=== PATIENT | female | born 1940 | race Caucasian/White ===

== ENCOUNTER 2016-08-25 17:01 | Inpatient (IN) ==
[2016-08-25] MEDS ORDERED: Ipratropium/Albuterol Neb 3 ML IH ONE (17:20)
[2016-08-25 17:46] LABS: Basophils # 0.1 K/mcL (0.0-0.2); Basophils % 0.4 %; Eosinophils # 0.2 K/mcL (0.0-0.6); Hematocrit 39.8 % (35.3-44.9); Hemoglobin 12.8 g/dL (11.5-15.4); Immature Granulocytes % 0.5 % (0-4); Lymphocytes # 1.3 K/mcL (0.6-4.6); Lymphocytes % 10.5 %; Mean Corpuscular HGB Conc 32.2 g/dL (31.6-35.5); Mean Corpuscular Hemoglobin 30.4 pg (28.0-33.3); Mean Corpuscular Volume 94.5 fL (83.0-100.0); Mean Platelet Volume 10.5 fL (9.4-12.4); Monocytes # 0.9 K/mcL (0.0-1.3); Monocytes % 7.1 %; Neutrophils # 9.6 K/mcL (1.6-8.9); Platelet Count 188 K/mcL (140-400); Red Blood Count 4.21 M/mcL (3.82-4.97); Red Cell Distribution Width 14.5 % (11.5-14.5); Segmented Neutrophils % 79.5 %
[2016-08-25 17:58] LABS: Albumin 3.7 g/dL (3.5-5.0); Albumin/Globulin Ratio 1.3 (1.1-2.2); Bilirubin,Total 0.7 mg/dL (0.2-1.2); Calcium 9.3 mg/dL (8.6-10.8); Globulin 2.9 g/dL (2.4-3.5); INR 1.1; Potassium 4.9 mEq/L (3.5-4.5); Prothrombin Time 11.9 Seconds (9.4-12.1); Total Protein 6.6 g/dL (6.0-8.3)
[2016-08-25 18:01] LABS: Activated Partial Thrombo Time 27.5 Seconds (26.0-36.0)
[2016-08-25] MEDS ORDERED: Furosemide 40 MG/4 ML VIAL IVP ONE (18:16)
--- NOTE | 2016-08-25 18:45 | Emergency Department Note ---
Disposition Clinical Impression: Congestive heart failure Qualifiers: Congestive heart failure chronicity: acute on chronic Disposition: Admitted As Inpatient Referrals: Wilmar Newman MD [Primary Care Provider] - Forms: ED Satisfaction Letter SOB HPI - General Chief Complaint: ED Shortness of Breath/Dyspnea Stated Complaint: LAVINIA Time Seen by Provider: 08/25/16 17:09 Source: patient, EMS Limitations: no limitations Nursing Notes Reviewed: Yes Vital Signs Reviewed: Yes - History of Present Illness She presents with complaint of shortness of breath started a couple days progressively getting worse. EMS was dispatched and patient was found to be having oxygen sat in the 70%. Patient denies chest pain denies fevers or chills. Patient has had similar episode when her congestive heart failure has been active. Patient denies any increased swelling of her abdomen or her lower extremities. Patient denies leg or knee pain. - Related Data Home Medications Medication Instructions Recorded Confirmed Aspirin Enteric Coated [Aspirin EC] 81 mg PO QPM #0 03/25/15 02/19/16 Carvedilol 12.5 mg PO BID #0 03/25/15 02/19/16 Furosemide [Lasix] 60 mg PO DAILY #0 03/25/15 02/19/16 Glimepiride [Amaryl] 2 mg PO BID #0 03/25/15 02/19/16 Magnesium Gluconate [Magonate] 500 mg PO QPM #0 03/25/15 02/19/16 Nitroglycerin [Nitrostat] 0.4 mg SL AD PRN #0 03/25/15 02/19/16 Omeprazole [PriLOSEC] 20 mg PO QAM #0 03/25/15 02/19/16 Sennosides [Senna] 17.2 mg PO BID #0 03/25/15 02/19/16 Atorvastatin [Lipitor] 40 mg PO HS 02/19/16 02/19/16 Mirtazapine 30 mg PO HS 02/19/16 02/19/16 Oxygen 2.5 - 3 l NS AD 02/19/16 02/19/16 Potassium Chloride [Klor-Con 10 meq PO DAILY 02/19/16 02/19/16 Sprinkle] Previous Rx's Medication Instructions Recorded Budesonide/Formoterol 80/4.5 1 puff IH BIDR inhaler 02/22/16 [Symbicort 80/4.5] ClonazePAM [Klonopin] 0.5 mg PO BID #20 tablet 02/22/16 Cyclobenzaprine [Flexeril] 5 mg PO HS #20 tablet 02/22/16 Docusate [Colace] 100 mg PO BID capsule 02/22/16 Escitalopram [Lexapro] 10 mg PO QAM tablet 02/22/16 Folic Acid 1 mg PO QAM tablet 02/22/16 Ipratropium/Albuterol Neb [Duoneb] 3 ml IH Q4HR inhsol 02/22/16 Ipratropium/Albuterol Neb [Duoneb] 3 ml IH QIDR PRN #0 inhsol 02/22/16 MOM Conc [MILK OF MAGNESIA conc] 10 ml PO DAILY PRN #0 ud.liq 02/22/16 Polyethylene Glycol 3350 [MiraLAX] 17 gm PO DAILY powd.pack 02/22/16 TraMADol [Ultram] 50 mg PO Q8HR PRN #15 tablet 02/22/16 Tramadol HCl [Ultram] 50 mg PO DAILY PRN #3 tab 08/05/16 Allergies Allergy/AdvReac Type Severity Reaction Status Date / Time acetaminophen [From Percocet] Allergy Nausea Verified 05/29/15 17:04 codeine Allergy See Verified 05/29/15 17:04 [From Tylenol-Codeine] Comments Oxycodone [From Percocet] Allergy Nausea Verified 05/29/15 17:04 Amoxicillin AdvReac Anaphylaxis Verified 05/29/15 17:04 citalopram [From Celexa] AdvReac Dizziness Verified 05/29/15 17:04 epinephrine AdvReac Headache Verified 05/29/15 17:04 furosemide [From Lasix] AdvReac Fatigued Verified 05/29/15 17:04 Penicillins [PCN] AdvReac Itching Verified 05/29/15 17:04 Sulfa (Sulfonamide AdvReac Anaphylaxis Verified 05/29/15 17:04 Antibiotics) All systems ED: reviewed and negative except as stated. 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 - Social History Smoking Status: Former smoker Smokeless Tobacco Status: No Alcohol use: Reports: none Drug use: Reports: none Physical Exam - General Limitations: no limitations General appearance: alert, in distress - Head Head exam: atraumatic, normocephalic, normal inspection - Eye Eye exam: Present: normal appearance, PERRL, EOMI - ENT ENT exam: normal exam, normal oropharynx, mucous membranes moist - Neck Neck exam: Present: normal inspection, full ROM, trachea midline - Chest Chest inspection: Present: normal inspection, symmetric chest wall rise - Respiratory Respiratory exam: Present: respiratory distress - Cardiovascular Cardiovascular exam: Present: regular rate, normal rhythm, normal heart sounds - Abdominal Exam Abdominal exam: Present: soft, Non-Tender. Absent: tenderness, distention, guarding, rebound, rigidity - Extremities Exam Extremities exam: Present: pedal edema - Back Exam Back exam: Present: normal inspection, full ROM. Absent: tenderness - Neurological Exam Neurological exam: Present: alert, oriented X3 - Psychiatric Psychiatric exam: Present: normal affect, normal mood - Skin Skin exam: Present: warm, dry, intact, normal color Course Vital Signs Temperature 97.8 F 08/25/16 17:03 Pulse Rate 95 08/25/16 17:03 Respiratory Rate 32 08/25/16 17:03 Blood Pressure 149/90 08/25/16 17:03 O2 Sat by Pulse Oximetry 90 L 08/25/16 17:03 Temperature 97.8 F 08/25/16 17:03 Pulse Rate 89 08/25/16 17:49 Respiratory Rate 22 08/25/16 17:49 Blood Pressure 154/93 08/25/16 17:49 O2 Sat by Pulse Oximetry 93 L 08/25/16 17:49 Oxygen Delivery Oxygen Delivery Nasal Cannula Shortness of Breath/Dyspnea - Differential Diagnosis Likely: acute exacerbation of chronic obstructive airways disease, congestive heart failure, pneumonia, pulmonary embolism - Lab Data Result diagrams: 08/25/16 17:35 08/25/16 17:35 Lab Results 08/25/16 08/25/16 08/25/16 Range/Units 17:35 17:35 17:35 WBC 12.0 H (4.3-11.1) K/mcL RBC 4.21 (3.82-4.97) M/mcL Hgb 12.8 (11.5-15.4) g/dL Hct 39.8 (35.3-44.9) % MCV 94.5 (83.0-100.0) fL MCH 30.4 (28.0-33.3) pg MCHC 32.2 (31.6-35.5) g/dL RDW 14.5 (11.5-14.5) % Plt Count 188 (140-400) K/mcL MPV 10.5 (9.4-12.4) fL Immature Gran % 0.5 (0-4) % Seg Neutrophils % 79.5 % Lymphocytes % 10.5 % Monocytes % 7.1 % Eosinophils % 2.0 % Basophils % 0.4 % Neutrophils # 9.6 H (1.6-8.9) K/mcL Lymphocytes # 1.3 (0.6-4.6) K/mcL Monocytes # 0.9 (0.0-1.3) K/mcL Eosinophils # 0.2 (0.0-0.6) K/mcL Basophils # 0.1 (0.0-0.2) K/mcL PT 11.9 (9.4-12.1) Seconds INR 1.1 APTT 27.5 (26.0-36.0) Seconds Sodium 136 (136-145) mEq/L Potassium 4.9 H (3.5-4.5) mEq/L Chloride 103 (98-109) mEq/L Carbon Dioxide 26 (19-29) mEq/L BUN 26 H (7-20) mg/dL Creatinine 1.26 H (0.57-1.11) mg/dL Est GFR ( Amer) 50 L (> 60) Est GFR (Non-Af Amer) 41 L (> 60) BUN/Creatinine Ratio 21 (6-26) Glucose 186 H (70-99) mg/dL Calculated Osmolality 292 (280-300) Lactic Acid (0.5-2.2) mmol/L Calcium 9.3 (8.6-10.8) mg/dL Total Bilirubin 0.7 (0.2-1.2) mg/dL AST 37 H (5-34) Units/L ALT 27 (0-55) Units/L Alkaline Phosphatase 77 (38-126) Units/L Troponin I (0-0.03) ng/mL B-Natriuretic Peptide (0-100) pg/mL Serum Total Protein 6.6 (6.0-8.3) g/dL Albumin 3.7 (3.5-5.0) g/dL Globulin 2.9 (2.4-3.5) g/dL Albumin/Globulin Ratio 1.3 (1.1-2.2) 08/25/16 08/25/16 08/25/16 Range/Units 17:35 17:35 17:35 WBC (4.3-11.1) K/mcL RBC (3.82-4.97) M/mcL Hgb (11.5-15.4) g/dL Hct (35.3-44.9) % MCV (83.0-100.0) fL MCH (28.0-33.3) pg MCHC (31.6-35.5) g/dL RDW (11.5-14.5) % Plt Count (140-400) K/mcL MPV (9.4-12.4) fL Immature Gran % (0-4) % Seg Neutrophils % % Lymphocytes % % Monocytes % % Eosinophils % % Basophils % % Neutrophils # (1.6-8.9) K/mcL Lymphocytes # (0.6-4.6) K/mcL Monocytes # (0.0-1.3) K/mcL Eosinophils # (0.0-0.6) K/mcL Basophils # (0.0-0.2) K/mcL PT (9.4-12.1) Seconds INR APTT (26.0-36.0) Seconds Sodium (136-145) mEq/L Potassium (3.5-4.5) mEq/L Chloride (98-109) mEq/L Carbon Dioxide (19-29) mEq/L BUN (7-20) mg/dL Creatinine (0.57-1.11) mg/dL Est GFR ( Amer) (> 60) Est GFR (Non-Af Amer) (> 60) BUN/Creatinine Ratio (6-26) Glucose (70-99) mg/dL Calculated Osmolality (280-300) Lactic Acid 1.2 (0.5-2.2) mmol/L Calcium (8.6-10.8) mg/dL Total Bilirubin (0.2-1.2) mg/dL AST (5-34) Units/L ALT (0-55) Units/L Alkaline Phosphatase (38-126) Units/L Troponin I 0.02 (0-0.03) ng/mL B-Natriuretic Peptide 1188 H (0-100) pg/mL Serum Total Protein (6.0-8.3) g/dL Albumin (3.5-5.0) g/dL Globulin (2.4-3.5) g/dL Albumin/Globulin Ratio (1.1-2.2) - Radiology Data Radiology results reviewed: Yes I reviewed the patient's radiology results. Chest X-Ray 08/25/16 17:18 IMPRESSION: 1. Interstitial pulmonary edema (and possibly perihilar alveolar edema), bilateral pleural effusions (larger on the left), and mild cardiomegaly, suggesting congestive heart failure. 2. Bibasilar atelectasis, worse on the left. D/ / Prateek Harvey MD / Prateek Harvey MD Interpreting Provider: Prateek Harvey MD - EKG Data EKG attestation: Yes I reviewed and interpreted this EKG. EKG results narrative: Electrical pacemaker.
[2016-08-25] MEDS ORDERED: Naloxone 0.4 MG/ML INJ IVP PRN (21:26)
[2016-08-25] MEDS ORDERED: Acetaminophen 325 MG TABLET PO PRN (21:26)
--- NOTE | 2016-08-25 21:50 | Internal Med History&Physical ---
<Radha Black - Last Filed: 08/26/16 01:05> Date of Encounter: 08/26/16 Time of Encounter: 20:00 Assessment and Plan (1) Acute CHF Current visit: Yes Status: Acute Patient came in with SOB that started two days ago. last echo from 05/30/15 showed LVEF 30%, severely dilated LV, mild diastollic dysfunction of LV, severely enlarged atria Etiology possibly from not taking lasix at home as prescribed-she states she is on 50mg lasix daily and has not taken it in 3 days due to urinary incontinence. CXR reviewed- shows pulmonary edema with bilateral pleural effusions more prominent on left than right, Hold Beta abdirashid 40mg IV lasix BID Strict I/O with 1.5L fluid restriction daily repeat echo pending. Qualifiers: Congestive heart failure type: combined Qualified Code(s): I50.41 - Acute combined systolic (congestive) and diastolic (congestive) heart failure (2) Elevated d-dimer Current visit: Yes Status: Acute Patient's D-Dimer was elevated at 2112, and patient came in with SOB. Must rule out PE Patient placed on heparin drip pending V/Q scan in am. (3) Urinary incontinence Current visit: Yes Status: Acute Patient reports history of what appears to be overflow incontinence. She has had this chronically for a long time ever since she started her lasix. Urinalysis to check for UTI Consider outpatient follow up with urology. Qualifiers: Urinary Incontinence type: unspecified incontinence Qualified Code(s): R32 - Unspecified urinary incontinence (4) CKD (chronic kidney disease) stage 3, GFR 30-59 ml/min Current visit: No Status: Acute Cr measured at 1.26, which about is about baseline for her. Continue to monitor kidney function. (5) H/O cardiomyopathy Current visit: No Status: Acute repeat echo pending. (6) Herniated intervertebral disc of lumbar spine Current visit: No Status: Acute continue home pain med and muscle relaxor once home med list verified. (7) Diabetes mellitus type 2 in obese Current visit: No Status: Chronic low dose sliding scale insulin with ACHS accuchecks. ADA diet. (8) Dyslipidemia Current visit: No Status: Chronic continue ASA continue statin once home med list verified. (9) GERD (gastroesophageal reflux disease) Current visit: Yes Status: Acute continue prilosec once home med list verified. Qualifiers: Esophagitis presence: esophagitis presence not specified Qualified Code(s) : K21.9 - Gastro-esophageal reflux disease without esophagitis (10) Interstitial lung disease Current visit: Yes Status: Acute history of interstitial lung disease. Patient on 2L home oxygen at baseline DuoNebs Q6HR PRN (11) DVT prophylaxis Current visit: No Status: Acute patient is now on heparin drip. Internal Medicine - H&P: HPI Chief complaint: shortness of breath Admitted From: Emergency Dept Plans for Post Hospital Care: Home History of present illness: PCP: Dr. Newman Ms. Griffin is a 76 year old female 76 year old female with PMHx of CHF (last echo 05/30/15 showed LVEF 30%), DM, HTN, HLD, interstitial lung disease (on 2L home oxygen), CKD3, ALLYSON. Patient came to ED with CC of SOB that started two days ago and progressively got worse. Patient states that she takes 60mg lasix at home daily for her CHF. However, she has not taken it in the last 3 days because it was making her use the bathroom very frequently and she has been having urinary incontinence due to not being able to make it to the bathroom in time. She states she has had occasional incontinence since she began taking lasix in 1996. The patient was very upset about this. She denies chest pain. She reports occasional numbness and tingling in her fingers and her left foot. She has occasional nausea without vomiting, no diarrhea, no fever or chills. She has occasional dizziness and has multiple history of falls. She denies hematuria or blood in her stools. SHe has had two episodes of hemoptysis a few days ago with bright red blood. Social Hx: lives at home with her , smoked for 30 years <1PPD, quit in 1996. Occasionally drinks, denies illicit drug use. Family Hx: mother at 66 from possible [place], dad at 76 from lymphoma. One child at age 4 from leukemia. Surgical Hx: right lumpectomy, right hip replacement, right thoracic surgery, Past Med Surg Social Fam HX - Past Medical History Medical history: arthritis, cancer, cardiomyopathy, CHF, COPD, coronary artery disease, diabetes, GERD, hyperlipidemia, hypertension, malignancy, osteoporosis , renal disease, other Psychiatric history: anxiety, depression - Past Surgical History Surgical History: cancer surgery (Left breast lumpectomy), cataract (Bilateral cataract surgery with lens implants), hip replacement (Right hip replacement), orthopedic, other, pacemaker/AICD, other - Social History Smoking Status: Former smoker Smokeless Tobacco Status: No Alcohol use: none Drug use: none - Family History Mother Adopted: No Living Status: Hx Family Cardiac Disorders: Yes Hx Family Respiratory Disorders: No Hx Family Cancer: No Hx Family Endocrine Disorder: No Internal Medicine - H&P: Meds Aspirin Enteric Coated [Aspirin EC] 81 mg PO QPM #0 03/25/15 [History] Carvedilol 12.5 mg PO BID #0 03/25/15 [History] Furosemide [Lasix] 60 mg PO DAILY #0 03/25/15 [History] Glimepiride [Amaryl] 2 mg PO BID #0 03/25/15 [History] Magnesium Gluconate [Magonate] 500 mg PO QPM #0 03/25/15 [History] Nitroglycerin [Nitrostat] 0.4 mg SL AD PRN #0 03/25/15 [History] Omeprazole [PriLOSEC] 20 mg PO QAM #0 03/25/15 [History] Sennosides [Senna] 17.2 mg PO BID #0 03/25/15 [History] Atorvastatin [Lipitor] 40 mg PO HS 02/19/16 [History] Mirtazapine 30 mg PO HS 02/19/16 [History] Oxygen 2.5 - 3 l NS AD 02/19/16 [History] Potassium Chloride [Klor-Con Sprinkle] 10 meq PO DAILY 02/19/16 [History] Budesonide/Formoterol 80/4.5 [Symbicort 80/4.5] 1 puff IH BIDR inhaler [Rx] ClonazePAM [Klonopin] 0.5 mg PO BID #20 tablet 02/22/16 [Rx] Cyclobenzaprine [Flexeril] 5 mg PO HS #20 tablet 02/22/16 [Rx] Docusate [Colace] 100 mg PO BID capsule 02/22/16 [Rx] Escitalopram [Lexapro] 10 mg PO QAM tablet 02/22/16 [Rx] Folic Acid 1 mg PO QAM tablet 02/22/16 [Rx] Ipratropium/Albuterol Neb [Duoneb] 3 ml IH Q4HR inhsol 02/22/16 [Rx] Ipratropium/Albuterol Neb [Duoneb] 3 ml IH QIDR PRN #0 inhsol 02/22/16 [Rx] MOM Conc [MILK OF MAGNESIA conc] 10 ml PO DAILY PRN #0 ud.liq 02/22/16 [Rx] Polyethylene Glycol 3350 [MiraLAX] 17 gm PO DAILY powd.pack 02/22/16 [Rx] TraMADol [Ultram] 50 mg PO Q8HR PRN #15 tablet 02/22/16 [Rx] Tramadol HCl [Ultram] 50 mg PO DAILY PRN #3 tab 08/05/16 [Rx] Allergies acetaminophen [From Percocet] Allergy (Verified 05/29/15 17:04) Nausea codeine [From Tylenol-Codeine] Allergy (Verified 05/29/15 17:04) See Comments Oxycodone [From Percocet] Allergy (Verified 05/29/15 17:04) Nausea Amoxicillin Adverse Reaction (Verified 05/29/15 17:04) Anaphylaxis citalopram [From Celexa] Adverse Reaction (Verified 05/29/15 17:04) Dizziness epinephrine Adverse Reaction (Verified 05/29/15 17:04) Headache Penicillins [PCN] Adverse Reaction (Verified 05/29/15 17:04) Itching Sulfa (Sulfonamide Antibiotics) Adverse Reaction (Verified 05/29/15 17:04) Anaphylaxis All Systems PM: A 10-system review of systems was performed and is negative for pertinent findings except as documented above in the HPI. - Constitutional Vitals: Temp Pulse Resp BP Pulse Ox 98.1 F 84 17 140/77 94 L 08/25/16 20:04 08/25/16 20:04 08/25/16 20:04 08/25/16 20:04 08/25/16 20:04 General appearance: Present: mild distress, A&O X 3, answers questions appropriately - Head Head exam: Present: atraumatic, normocephalic - Eye Eye exam: Present: PERRL, sclera anicteric Pupils: Present: PERRL - Neck Neck exam general surgery: Present: supple, trachea midline - Respiratory Respiratory exam: Present: rales (lower lobe crackles more prominent on right than left. ), rhonchi, wheezes - Cardiovascular Cardiovascular exam: Present: +S1, +S2. Absent: JVD - GI/Abdominal GI/Abdominal exam: Present: distended, normal bowel sounds, soft, tenderness - Extremities Exam Extremities exam: Present: calf tenderness (on left. ), pedal edema (+1 pedal edema bilaterally. pedal pulses palpable bilaterally. ), radial pulses palpable and symetrical Additional comments: numbness and tingling on the left lower extremity. - Back Exam Additional comments: scars present in mid and lower back from previous surgeries. - Neurological Exam Neurological exam: Present: alert, CN II-XII intact, oriented X3. Absent: facial droop, speech deficit Additional comments: patient reports mildly decreased sensation on left lower extremity compared to right. - Psychiatric Psychiatric exam: Present: anxious, depressed (patient was very upset and crying during exam) - Skin Skin exam: Absent: cyanosis, diaphoretic Internal Med - H&P Results - Labs CBC & Chem 7: 08/26/16 00:41 08/25/16 17:35 <Viktor Baker - Last Filed: 08/26/16 01:55> Date of Encounter: 08/25/16 Internal Medicine - H&P: HPI History of present illness: Ms. Griffin is a 76 year old female All Systems PM: A 10-system review of systems was performed and is negative for pertinent findings except as documented above in the HPI. - Constitutional Vitals: Temp Pulse Resp BP Pulse Ox 98.1 F 85 17 139/76 87 L 08/26/16 00:34 08/26/16 00:34 08/26/16 00:34 08/26/16 00:34 08/26/16 00:34 Internal Med - H&P Results - Labs CBC & Chem 7: 08/26/16 00:41 08/26/16 00:41 Labs: Short CBC 08/26/16 Range/Units 00:41 WBC 13.6 H (4.3-11.1) K/mcL Hgb 12.5 (11.5-15.4) g/dL Hct 38.6 (35.3-44.9) % Plt Count 176 (140-400) K/mcL Neutrophils # 9.5 H (1.6-8.9) K/mcL BMP 08/26/16 00:41 Sodium 137 Potassium 4.0 Chloride 103 Carbon Dioxide 26 BUN 22 H Creatinine 1.23 H Glucose 139 H Calcium 9.6 Urine 08/25/16 Range/Units 18:51 Urine Color Yellow (Yellow) Urine Clarity Clear (Clear) Urine pH 5.5 (5.0-8.0) pH Units Ur Specific [place] 1.010 (1.010-1.025) Urine Protein Negative (Neg-Trace) mg/dL Urine Glucose (UA) Normal (Normal) mg/dL - Attending Attestation I examined this patient and my medical decision-making was reviewed with the NURSING TECHN/PA/Advanced Practice Nurse/Resident Physician. I agree with the documented findings, disposition and treatment plan as described except to the extent set forth below. 76 Y/F with h/o CKD stage 3, Non ischemic cardiomyopathy, chronic respiratory failure on home oxygen, ALLYSON - noncompliant with CPAP. Presents with Progressively worsening SOB for 2 days. Cough with whitish expectoration. O2 sats of about 70% at presentation. O/E: Bilateral basal crackles R > L. Mild leg edema. BNP: 1188. CXR reports , interstitial pulmonary edema, bilateral pleural effusions greater on the left and mild cardiomegaly, suggesting congestive heart failure. EKG shows paced rhythm. A/P: CHF Exacerbation: IV Lasix, daily weights, strict I/O; low sodium diet and fluid restriction. Acute on chronic resp failure: possibly due to CHF exacerbation treat with Lasix. Will check D-dimers.
[2016-08-25] MEDS ORDERED: D5% in Water 1,000 ML IV PRN (23:00)
[2016-08-25] MEDS ORDERED: Dextrose Gel 15 GM PO PRN ×2 (23:00)
[2016-08-25] MEDS ORDERED: *HR* Dextrose 50 % in Water (Syg) 50 ML SYRINGE IVP PRN (23:00)
[2016-08-25] MEDS ORDERED: *HR* Heparin 5,000 UNIT/ML VIAL SQ SCH (23:15)
[2016-08-25] MEDS ORDERED: *HR* LORazepam 0.5 MG TABLET PO ONE (23:37)
[2016-08-26] MEDS ORDERED: *HR* Heparin 5,000 UNIT/ML VIAL IVP PRN ×2 (00:06)
[2016-08-26] MEDS ORDERED: Ipratropium/Albuterol Neb 3 ML IH PRN (00:18)
[2016-08-26 00:51] LABS: Basophils % 0.3 %; Eosinophils # 0.3 K/mcL (0.0-0.6); Eosinophils % 2.4 %; Hematocrit 38.6 % (35.3-44.9); Hemoglobin 12.5 g/dL (11.5-15.4); Immature Granulocytes % 0.4 % (0-4); Lymphocytes # 2.4 K/mcL (0.6-4.6); Lymphocytes % 17.5 %; Mean Corpuscular HGB Conc 32.4 g/dL (31.6-35.5); Mean Corpuscular Hemoglobin 30.4 pg (28.0-33.3); Mean Corpuscular Volume 93.9 fL (83.0-100.0); Mean Platelet Volume 10.6 fL (9.4-12.4); Monocytes # 1.2 K/mcL (0.0-1.3); Monocytes % 9.1 %; Neutrophils # 9.5 K/mcL (1.6-8.9); Platelet Count 176 K/mcL (140-400); Red Blood Count 4.11 M/mcL (3.82-4.97); Red Cell Distribution Width 14.6 % (11.5-14.5); Segmented Neutrophils % 70.3 %
[2016-08-26 00:56] LABS: INR 1.1; Prothrombin Time 12.2 Seconds (9.4-12.1)
[2016-08-26 00:58] LABS: Activated Partial Thrombo Time 27.5 Seconds (26.0-36.0)
[2016-08-26 01:02] LABS: Calcium 9.6 mg/dL (8.6-10.8); Phosphorous 3.2 mg/dL (2.3-4.7)
[2016-08-26 01:14] LABS: Bilirubin,Urine Negative (Negative); Blood,Urine Negative (Negative); Clarity,Urine Clear (Clear); Color,Urine Yellow (Yellow); Glucose,Urine (UA) Normal (Normal); Ketones,Urine Negative (Negative); Leukocyte Esterase,Urine Negative (Negative); Nitrite,Urine Negative (Negative); PH,Urine 5.5 pH Units (5.0-8.0); Protein,Urine Negative (Neg-Trace); Urobilinogen,Urine Normal (Normal)
[2016-08-26] MEDS: Heparin 25,000 UNIT/500 ML D5W 25,000 UNIT/500 ML MLS IVC SCH (01:33)
[2016-08-26] MEDS ORDERED: traMADol 50 MG TABLET PO ONE (03:49)
[2016-08-26] MEDS: Ondansetron 4 MG/2 ML VIAL IVP PRN ×2 (05:49→17:09)
[2016-08-26] MEDS ORDERED: Perflutren Lipid Microsphere 1.3 ML in 0.9 % Sodium Chloride 8.7 ML IVP ONE (08:41)
[2016-08-26] MEDS: Furosemide 40 MG/4 ML VIAL IVP SCH ×2 (09:11→17:09)
[2016-08-26] MEDS: Insulin LISPRO 300 UNITS/3 ML VIAL SQ SCH ×4 (09:12→21:36)
[2016-08-26 09:58] LABS: Basophils # 0.1 K/mcL (0.0-0.2); Basophils % 0.4 %; Eosinophils # 0.5 K/mcL (0.0-0.6); Eosinophils % 3.8 %; Hematocrit 40.9 % (35.3-44.9); Immature Granulocytes % 0.5 % (0-4); Lymphocytes # 2.3 K/mcL (0.6-4.6); Lymphocytes % 18.2 %; Mean Corpuscular HGB Conc 31.8 g/dL (31.6-35.5); Mean Corpuscular Volume 94.5 fL (83.0-100.0); Mean Platelet Volume 10.7 fL (9.4-12.4); Monocytes # 1.2 K/mcL (0.0-1.3); Monocytes % 9.2 %; Neutrophils # 8.7 K/mcL (1.6-8.9); Platelet Count 185 K/mcL (140-400); Red Blood Count 4.33 M/mcL (3.82-4.97); Red Cell Distribution Width 14.5 % (11.5-14.5); Segmented Neutrophils % 67.9 %
--- NOTE | 2016-08-26 12:38 | ECHO - Doppler Report ---
Echo with Imaging Enhancement Agent Name: Natacha Griffin Date of Study: 08/26/2016 Date: 1940 Ht: 62.0 in Medical Record#: [id number] Age: 76 Wt: 200.0 lb Gender: Female BSA: 1.91 Order #: [id number] Location: [facility] Room #: 2A43 Reading Physician: Shashi Amor DO, FACC, YADIRA KIRK Hand Packer/Packager: Elle Gustafson, RVT, RDCS Ordering Physician: Brooke Baker MD Primary Physician: Wilmar Newman MD Indications: Congestive heart failure Impressions: Technically sub-optimal due to poor echocardiographic windows. LVEF 30%. Moderately dilated left ventricle. Not all segments well visualized, but LV appeared to demonstrate severe global systolic dysfunction. Atypical septal motion consistent with paced rhythm. Grossly, mildly dilated right ventricle with normal appearing function. Indeterminate diastolic function. No evidence of pulmonary hypertension identified. A device lead was visualized in the right atrium and right ventricle. No significant valvular dysfunction. Left Ventricular Wall Motion: Rest Echo Findings The apex, apical inferior, mid inferior, basal inferior, apical anterior, mid anterior, basal anterior, apical septal, mid inferior septal, basal inferior septal, apical lateral, mid anterior lateral, basal anterior lateral, mid anterior septal, mid inferior lateral, basal anterior septal and basal inferior lateral loera were hypokinetic. Findings: Study Quality * Technically sub-optimal due to poor echocardiographic windows. ECG Findings * Paced rhythm. Left Ventricle * LVEF 30%. * Moderately dilated left ventricle. * Not all segments well visualized, but LV appeared to demonstrate severe global systolic dysfunction. * Atypical septal motion consistent with paced rhythm. * Indeterminate diastolic function. Right Ventricle * Grossly, mildly dilated right ventricle with normal appearing function. Left Atrium * Moderately dilated left atrium. Right Atrium * Mildly dilated right atrium. Interatrial Septum * Interatrial septum not well evaluated. Aortic Valve * Aortic valve not well visualized. * No aortic regurgitation. * No aortic stenosis. Mitral Valve * Mild mitral annular calcification * Mildly thickened mitral valve leaflets. * Trace mitral regurgitation. * No mitral stenosis. Tricuspid Valve * Normal tricuspid valve structure and function. * Trace tricuspid regurgitation. * No evidence of pulmonary hypertension identified. Pulmonic Valve * Pulmonic valve not well visualized. * Trace pulmonic regurgitation. Aorta * Normally sized aortic root. Pericardium * The pericardium appears normal. IVC * Normal IVC dimensions and inspiratory collapse. Device lead * A device lead was visualized in the right atrium and right ventricle. Pulmonary Artery * Normal visualized portions of the main pulmonary artery. History Hypertension Diabetes Hypercholesteremia Family History of CAD Pacer/ICD Implant 2015 a Previous Echo was performed. Contrast: Definity 1.3 ml in 8.7 ml of saline 3 ml. Measurements: BP: 117/ 72 2D Normal Values RVIDd: 2.80 cm <2.7 cm IVSd: 1.20 cm 0.6 - 1.0 cm LVIDd: 6.50 cm 3.7 - 5.6 cm LVPWd: 1.00 cm 0.6 - 1.1 cm LVIDs: 4.10 cm 1.5 - 3.6 cm AO: 3.30 cm < 4.0 cm LA: 3.40 cm 2.0 - 4.0cm %FS: 36.90 cm >25 % LA volume: 60 Mitral Valve Peak E:.81 m/sec Peak A:.64 m/sec E/A Ratio:1.3 Tricuspid Valve TV Regurg Peak Grad: 28.00mmHg TV Regurg Peak Dony: 2.64m/sec Updated by Shashi Amor DO, FACMarium, YADIRA KIRK on 08/26/2016 12:32:27 PM electronically signed on 08/26/2016 12:34:13 PM with status of Final Wall Motion Simmons: 1=Normal, 2=Hypokinesis, 3=Akinesis, 4=Dyskinesis, 5=Aneurysmal, 6=Hyperkinetic, X=Not Visualized (Blank)=Missing
--- NOTE | 2016-08-26 16:36 | Internal Med Progress Note ---
Date of Encounter: 08/26/16 Time of Encounter: 16:29 - Assessment and plan (1) Acute CHF Current Visit: Yes Status: Acute Assessment and plan: Worsening shortness of breath for the last week ever since she stopped the Lasix. She says her left leg was too numb and tingling and she had to drag her left leg to walk to the bathroom so she had to stop the Lasix. CXR shows pulmonary edema with bilateral pleural effusions more prominent on left than right, She has been restarted back on IV Lasix 40 twice a day. Strict I/O with 1.5 L fluid restriction daily. Repeat echo shows baseline EF of 30%. She denies any chest pain, shortness of breath has improved. We will continue aspirin and beta blockers and statins. Qualifiers: Congestive heart failure type: combined Qualified Code(s): I50.41 - Acute combined systolic (congestive) and diastolic (congestive) heart failure (2) Elevated d-dimer Current Visit: Yes Status: Acute Assessment and plan: Patient's D-Dimer was elevated at 2112, and patient came in with SOB. Patient placed on heparin drip empirically until PE is ruled out. CTA was not done because of CKD. VQ scan with intermediate probability. Patient has improved clinically, does not have pulmonary hypertension on the echo, we will order bilateral venous Doppler of lower legs, if negative for clots, we will stop the heparin drip. (3) CKD (chronic kidney disease) stage 3, GFR 30-59 ml/min Current Visit: No Status: Acute Assessment and plan: at baseline, continue to monitor. (4) Peripheral neuropathy Current Visit: Yes Status: Acute Assessment and plan: she reports burning numbness and tingling of her left feet, she does not have much symptoms on her right leg. She also complains of mild burning and tingling on both of her upper extremities however it is not as bad. This seems more like diabetic neuropathy , will add gabapentin renal dose. will also add Pt/OT, will monitor and wait for PT/OT recommendations but do not think its CVA as the power is like 3-4. Qualifiers: Peripheral neuropathy type: polyneuropathy, unspecified Qualified Code(s): G62.9 - Polyneuropathy, unspecified - Time Spent With Patient 25 - 35 minutes - Subjective Interval history: Patient seen at the bedside today, first encounter with the patient. Reports numbness of the left leg and weakness, she says she has been dragging her left leg along and has not been able to walk. For the same reason she stopped her Lasix by herself at home which might have exacerbated her CHF. She says she went to her PCP and he had ordered a CAT scan of the head to rule out stroke which she has not been able to get it so far. - Constitutional Vitals: Temp Pulse Resp BP Pulse Ox 98.5 F 87 18 131/80 93 L 08/26/16 15:37 08/26/16 15:37 08/26/16 15:37 08/26/16 15:37 08/26/16 15:37 General appearance: Present: A&O X 3, no acute distress, answers questions appropriately Exam: Head Head exam: Present: atraumatic, normocephalic - Eye Eye exam: Present: PERRL, sclera anicteric Pupils: Present: PERRL - Neck Neck exam general surgery: Present: supple, trachea midline - Respiratory Respiratory exam: Present: b/l clear, no wheezing. - Cardiovascular Cardiovascular exam: Present: +S1, +S2. Absent: JVD - GI/Abdominal GI/Abdominal exam: Present: distended, normal bowel sounds, soft, no tenderness - Extremities Exam Extremities exam: Present: no edema at present, radial pulses palpable and symetrical Additional comments: numbness and tingling on the left lower extremity. - Back Exam Additional comments: scars present in mid and lower back from previous surgeries. - Neurological Exam Neurological exam: Present: alert, CN II-XII intact, oriented X3. Absent: facial droop, speech deficit Additional comments: patient reports mildly decreased sensation on left lower extremity compared to right. - Psychiatric Psychiatric exam: Present: anxious, depressed (patient was very upset and crying during exam) - Skin Skin exam: Absent: cyanosis, diaphoretic Internal Medicine: Result - Labs CBC & Chem 7: 08/26/16 09:25 08/26/16 00:41 Labs: Short CBC 08/26/16 08/26/16 Range/Units 00:41 09:25 WBC 13.6 H 12.8 H (4.3-11.1) K/mcL Hgb 12.5 13.0 (11.5-15.4) g/dL Hct 38.6 40.9 (35.3-44.9) % Plt Count 176 185 (140-400) K/mcL Neutrophils # 9.5 H 8.7 (1.6-8.9) K/mcL BMP 08/26/16 00:41 Sodium 137 Potassium 4.0 Chloride 103 Carbon Dioxide 26 BUN 22 H Creatinine 1.23 H Glucose 139 H Calcium 9.6 - ABG Interpretation ABG results: PT/INR, D-dimer PT 12.2 Seconds (9.4-12.1) H 08/26/16 00:41 D-Dimer 2112 ng/mLFEU (0-500) H 08/25/16 23:19 - Impressions Impressions Pulmonary Perfusion Imaging 08/26/16 00:10 IMPRESSION: Limited exam secondary to clumping of an a on ventilatory images. There is a triple matched defect in the left lung base, compatible with at least indeterminate or intermediate probability study D/ / Rick Burroughs MD / Rick Burroughs MD Interpreting Provider: Rick Burroughs MD Consult Discharge Plan - Plan Referrals: [facility] – [place],Wilmar Choudhury MD [Primary Care Provider] - 09/03/16 9:00 am (Please follow up as schedule!!!)
[2016-08-26] MEDS: clonazePAM 0.5 MG TABLET PO PRN ×2 (17:09→21:34)
[2016-08-26] MEDS: Aspirin Enteric Coated 81 MG Tablet PO SCH (17:09)
--- NOTE | 2016-08-26 19:41 | Electrocardiograph Report ---
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
[2016-08-26] MEDS: Mirtazapine 15 MG TABLET PO SCH (21:34)
[2016-08-26] MEDS: Gabapentin 100 MG CAPSULE PO SCH (21:34)
[2016-08-26 23:07] LABS: Activated Partial Thrombo Time > 360.0 Seconds (26.0-36.0)
[2016-08-27 01:12] LABS: Heparin anti-factor XA UFH > 2.00 IU/mL (0.30-0.70)
[2016-08-27] MEDS: Heparin 25,000 UNIT/500 ML D5W 25,000 UNIT/500 ML MLS IVC SCH (02:14)
[2016-08-27] MEDS: Insulin LISPRO 300 UNITS/3 ML VIAL SQ SCH ×4 (08:50→22:10)
[2016-08-27] MEDS: Gabapentin 100 MG CAPSULE PO SCH ×3 (08:51→20:05)
[2016-08-27] MEDS: Folic Acid 1 MG TABLET PO SCH (08:52)
[2016-08-27] MEDS: Lisinopril 20 MG TABLET PO SCH (08:52)
[2016-08-27] MEDS: Furosemide 40 MG/4 ML VIAL IVP SCH ×2 (08:52→17:11)
--- NOTE | 2016-08-27 14:45 | Internal Med Progress Note ---
Date of Encounter: 08/27/16 Time of Encounter: 11:45 - Assessment and plan (1) Acute CHF Current Visit: Yes Status: Acute Assessment and plan: Continue IV Lasix. Patient having good urine output. Almost 5 L negative fluid balance. We will start oral potassium supplements. Continue aspirin and statin and lisinopril. Qualifiers: Congestive heart failure type: combined Qualified Code(s): I50.41 - Acute combined systolic (congestive) and diastolic (congestive) heart failure (2) Elevated d-dimer Current Visit: Yes Status: Acute Assessment and plan: Venous Doppler of both lower extremities was negative for any deep vein thrombosis. As such. IV heparin. Start subcutaneous heparin for DVT prophylaxis. (3) Peripheral neuropathy Current Visit: Yes Status: Acute Assessment and plan: Likely from diabetic neuropathy. On gabapentin. Qualifiers: Peripheral neuropathy type: polyneuropathy associated with underlying disease Qualified Code(s): G63 - Polyneuropathy in diseases classified elsewhere (4) CKD (chronic kidney disease) stage 3, GFR 30-59 ml/min Current Visit: No Status: Chronic Assessment and plan: Stable renal function. (5) Diabetes mellitus type 2 in obese Current Visit: Yes Status: Chronic Assessment and plan: Well controlled blood sugars. On sliding scale insulin. - Subjective Interval history: Patient is feeling better today. Shortness of breath is improving. No chest pain. No nausea or vomiting. - Constitutional Vitals: Temp Pulse Resp BP Pulse Ox 98.4 F 86 19 136/84 96 08/27/16 12:07 08/27/16 12:07 08/27/16 12:07 08/27/16 12:07 08/27/16 12:07 General appearance: Present: A&O X 3, no acute distress, answers questions appropriately - Respiratory Respiratory exam: Present: CTAB. Absent: accessory muscle use, rales, rhonchi, wheezes - Cardiovascular Cardiovascular exam: Present: RRR, +S1, +S2. Absent: diastolic murmur, gallop, rubs, systolic murmur - GI/Abdominal GI/Abdominal exam: Present: normal bowel sounds, soft, no peritoneal signs. Absent: distended, tenderness - Extremities Exam Extremities exam: Present: warm, radial pulses palpable and symetrical. Absent : calf tenderness, cyanotic - Neurological Exam Neurological exam: Present: CN II-XII intact, oriented X3, no focal deficits. Absent: facial droop, speech deficit Additional comments: Numbness and tingling in left lower extremity - Skin Skin exam: Present: dry, intact Internal Medicine: Result - Labs CBC & Chem 7: 08/26/16 09:25 08/26/16 00:41 - ABG Interpretation ABG results: PT/INR, D-dimer PT 12.2 Seconds (9.4-12.1) H 08/26/16 00:41 D-Dimer 2112 ng/mLFEU (0-500) H 08/25/16 23:19 Consult Discharge Plan - Plan [place] [facility] [place]oudh[place] [Primary Care Provider] - 09/03/16 9:00 am (Please follow up as scheduled. Needs home health set up.) - Attending Attestation This document has been at least partially created by [employer] recognition technology by Dr. Reed. Errors in grammar, wording or other phrases may exist. If errors are found after the documentation is signed, they will be addressed individually in the addendum section of this document when appropriate.
[2016-08-27] MEDS: Aspirin Enteric Coated 81 MG Tablet PO SCH (17:10)
--- NOTE | 2016-08-27 17:53 | Venous Imaging Report ---
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 Findings Venous Duplex Results: Right: Venous imaging of the lower extremity reveals full patency and normal vessel compressibility of the right distal iliac, right common femoral, right superficial femoral, right popliteal, right posterior tibial, right peroneal, right great saphenous and right lesser saphenous. Doppler signals in the evaluated veins were normal. Left: Venous imaging of the lower extremity reveals full patency and normal vessel compressibility of the left distal iliac, left common femoral, left superficial femoral, left popliteal, left posterior tibial, left peroneal, left great saphenous and left lesser saphenous. Doppler signals in the evaluated veins were normal. Lower Extremity Venous Duplex Side Vein Compress Spontaneous Flow Augment Diameter (cm) Depth (cm) Right Distal Iliac Normal Yes Phasic Yes Right Common Femoral Normal Yes Phasic Yes Right Superficial Femoral Normal Yes Phasic Yes Right Popliteal Normal Yes Phasic Yes Right Posterior Tibial Normal Yes Phasic Yes Right Peroneal Normal Yes Phasic Yes Right Great Saphenous Normal Yes Phasic Yes Right Lesser Saphenous Normal Yes Phasic Yes Left Distal Iliac Normal Yes Phasic Yes Left Common Femoral Normal Yes Phasic Yes Left Superficial Femoral Normal Yes Phasic Yes Left Popliteal Normal Yes Phasic Yes Left Posterior Tibial Normal Yes Phasic Yes Left Peroneal Normal Yes Phasic Yes Left Great Saphenous Normal Yes Phasic Yes Left Lesser Saphenous Normal Yes Phasic Yes Updated by Nhan Larsen MD on 08/27/2016 5:44:53 PM electronically signed on 08/27/2016 5:47:05 PM with status of Final
[2016-08-27] MEDS: *HR* Heparin 5,000 UNIT/ML VIAL SQ SCH (20:03)
[2016-08-27] MEDS: Mirtazapine 15 MG TABLET PO SCH (20:05)
[2016-08-27] MEDS: clonazePAM 0.5 MG TABLET PO PRN (22:19)
[2016-08-28] MEDS: *HR* Heparin 5,000 UNIT/ML VIAL SQ SCH (06:08)
[2016-08-28 07:07] LABS: Basophils # 0.1 K/mcL (0.0-0.2); Basophils % 0.5 %; Eosinophils # 0.6 K/mcL (0.0-0.6); Eosinophils % 5.6 %; Hematocrit 38.8 % (35.3-44.9); Hemoglobin 12.7 g/dL (11.5-15.4); Immature Granulocytes % 0.6 % (0-4); Lymphocytes % 20.4 %; Mean Corpuscular HGB Conc 32.7 g/dL (31.6-35.5); Mean Corpuscular Hemoglobin 31.1 pg (28.0-33.3); Mean Corpuscular Volume 95.1 fL (83.0-100.0); Mean Platelet Volume 10.8 fL (9.4-12.4); Monocytes % 9.7 %; Neutrophils # 6.2 K/mcL (1.6-8.9); Platelet Count 173 K/mcL (140-400); Red Blood Count 4.08 M/mcL (3.82-4.97); Red Cell Distribution Width 14.5 % (11.5-14.5); Segmented Neutrophils % 63.2 %
[2016-08-28 07:15] LABS: Calcium 9.5 mg/dL (8.6-10.8); Potassium 4.4 mEq/L (3.5-4.5)
[2016-08-28 07:22] VITALS: BP 113/71
[2016-08-28] MEDS: Gabapentin 100 MG CAPSULE PO SCH (08:49)
[2016-08-28] MEDS: Folic Acid 1 MG TABLET PO SCH (08:49)
[2016-08-28] MEDS: Lisinopril 20 MG TABLET PO SCH (08:49)
--- NOTE | 2016-08-28 08:50 | Discharge Summary ---
Date of Encounter: 08/28/16 Time of Encounter: 08:48 - Discharge Diagnosis (1) Acute CHF Priority: Primary Status: Acute Qualifiers: Congestive heart failure type: combined Qualified Code(s): I50.41 - Acute combined systolic (congestive) and diastolic (congestive) heart failure (2) Elevated d-dimer Priority: Secondary Status: Acute (3) Peripheral neuropathy Priority: Secondary Status: Acute Qualifiers: Peripheral neuropathy type: polyneuropathy associated with underlying disease Qualified Code(s): G63 - Polyneuropathy in diseases classified elsewhere (4) CKD (chronic kidney disease) stage 3, GFR 30-59 ml/min Priority: Secondary Status: Chronic (5) Diabetes mellitus type 2 in obese Priority: Secondary Status: Chronic - Discharge Medications Prescriptions: Gabapentin [Neurontin] 100 mg PO TID #60 capsule Home Medications: Aspirin Enteric Coated [Aspirin EC] 81 mg PO QPM #0 03/25/15 [History] Carvedilol 12.5 mg PO BID #0 03/25/15 [History] Furosemide [Lasix] 60 mg PO DAILY #0 03/25/15 [History] Glimepiride [Amaryl] 2 mg PO BID #0 03/25/15 [History] Magnesium Gluconate [Magonate] 500 mg PO QPM #0 03/25/15 [History] Nitroglycerin [Nitrostat] 0.4 mg SL Q5M PRN #0 03/25/15 [History] Omeprazole [PriLOSEC] 20 mg PO QAM #0 03/25/15 [History] Sennosides [Senna] 8.6 mg PO DAILY PRN #0 03/25/15 [History] Atorvastatin [Lipitor] 40 mg PO HS 02/19/16 [History] Mirtazapine 30 mg PO HS 02/19/16 [History] Oxygen 2.5 - 3 l NS AD 02/19/16 [History] Potassium Chloride [Klor-Con Sprinkle] 10 meq PO HS 02/19/16 [History] Docusate [Colace] 100 mg PO BID capsule 02/22/16 [Rx] Polyethylene Glycol 3350 [MiraLAX] 17 gm PO DAILY powd.pack 02/22/16 [Rx] TraMADol [Ultram] 50 mg PO Q8HR PRN #15 tablet 08/11/16 [Rx] ClonazePAM [Klonopin] 0.5 mg PO TID PRN 08/26/16 [History] Cyclobenzaprine HCl 5 mg PO HS 08/26/16 [History] Escitalopram [Lexapro] 5 mg PO BID 08/26/16 [History] Folic Acid [FA-8] 0.8 mg PO DAILY 08/26/16 [History] Lactulose 20 gm PO HS 08/26/16 [History] Lisinopril [Zestril] 20 mg PO DAILY 08/26/16 [History] SitaGLIPtin [Januvia] 100 mg PO DAILY 08/26/16 [History] Gabapentin [Neurontin] 100 mg PO TID #60 capsule 08/28/16 [Rx] Allergies/Adverse Reactions: Allergies Amoxicillin Allergy (Verified 08/28/16 01:21) Swelling of Lip/Tongue/Throat Sulfa (Sulfonamide Antibiotics) Allergy (Verified 08/28/16 01:21) Swelling of Lip/Tongue/Throat acetaminophen [From Percocet] Adverse Reaction (Verified 08/28/16 01:21) Nausea citalopram [From Celexa] Adverse Reaction (Verified 08/28/16 01:21) Dizziness codeine [From Tylenol-Codeine] Adverse Reaction (Verified 08/28/16 01:21) Nausea epinephrine Adverse Reaction (Verified 08/28/16 01:21) Headache Oxycodone [From Percocet] Adverse Reaction (Verified 08/28/16 01:21) Nausea Penicillins [PCN] Adverse Reaction (Verified 08/28/16 01:21) Itching Procedures/tests Complete & Pending: Procedures Performed prior 72 hours Category Date Time Status VQ Scan [NM pul vent and perfuse] [NM] Routine Exams 08/26/16 00:10 Completed EV echocardiogram w enhance Routine Y 08/26/16 23:08 Completed EV venous imaging LE BI Routine Y 08/27/16 16:28 Completed Date of admission: 08/25/16 22:55 Primary care physician: Wilmar Newman MD Consults: 08/26/16 16:27 Consult to Occupational Therapy [CONS] Routine Comment: Evaluate, develop and implement POC Consult to Physical Therapy [CONS] Routine Comment: Evaluate, develop and implement POC Discharging clinician: Elgin Reed Anticipated date of discharge: 08/28/16 - Patient Status Disposition: Home, Self-Care Condition: Good Functional capacity at discharge: independent ambulation Overall status at discharge: patient is progressing back to baseline () - Discharge Instructions Instructions: Heart Failure (DC), Diabetes Mellitus Type 2 in Adults (DC) Follow Up With: Wilmar Newman MD [Primary Care Provider] - 09/03/16 9:00 am (Please follow up as scheduled. Needs home health set up.) Lula Poon DO [Partnered Physician] - (in 1-2 weeks) Forms: ED Satisfaction Letter - Diet and Activity Activity: increase activity as tolerated, wear oxygen at all times Diet: advance to your usual diet, diabetic diet, low fat, low cholesterol, low salt diet, other (fluid restriction at 2L/day) Hospital course: Ms. Griffin is a 76 year old female with history of combined congestive heart failure presented to the ER with complaints of shortness of breath which was progressively getting worse. Patient takes Lasix 60 mg daily at home. She does have chronic kidney disease stage III. She was treated with intravenous Lasix with improvement in her symptoms. On initial presentation, there is also concern for pulmonary embolism and patient underwent a VQ scan which showed intermediate or indeterminate probability for PE. She then underwent a venous Doppler of bilateral lower extremities which was negative for any thrombosis. As such her anticoagulation was stopped. She is breathing much better now and is back on her home oxygen at 2.5 L/m. She is clinically stable for discharge and will follow up with her primary care provider and barback for further management. Her renal function has been stable for the past 3 years. She will be discharged on 60 mg of Lasix daily as before. She was not compliant with her medication due to urinary frequency and urgency. She will be provided with a prescription for bedside commode so that she is not apprehensive about using Lasix. She also has chronic neuropathy involving her left lower extremity and has now been started on gabapentin for symptomatic treatment. This is likely due to diabetes mellitus. - Time Spent with Patient Total time spent providing and/or coordinating discharge services: Less than 30 minutes (25 min) - Constitutional Vitals: Temp Pulse Resp BP Pulse Ox 97.5 F L 75 17 113/71 100 08/28/16 07:19 08/28/16 07:19 08/28/16 07:19 08/28/16 07:19 08/28/16 07:19 General appearance: Present: A&O X 3, no acute distress, answers questions appropriately - Respiratory Respiratory exam: Present: CTAB. Absent: accessory muscle use, rales, rhonchi, wheezes - GI/Abdominal GI/Abdominal exam: Present: normal bowel sounds, soft, no peritoneal signs. Absent: distended, tenderness - Extremities Exam Extremities exam: Present: warm, radial pulses palpable and symetrical. Absent : calf tenderness, cyanotic, pedal edema - Neurological Exam Neurological exam: Present: alert, oriented X3, no focal deficits, strengths equal and symetr throughout. Absent: facial droop, speech deficit - Skin Skin exam: Present: dry, intact - Attending Attestation This document has been at least partially created by [employer] recognition technology by Dr. Reed. Errors in grammar, wording or other phrases may exist. If errors are found after the documentation is signed, they will be addressed individually in the addendum section of this document when appropriate.
[2016-08-28] MEDS: Insulin LISPRO 300 UNITS/3 ML VIAL SQ SCH (08:51)
== END 2016-08-28 11:08 | disposition home or self-care (01) | DRG 291 ==
LOC: 2ANU 17:01 → EMEROO 17:01 → 2ANU 19:22 → SUATTDRO 22:55
PROVIDERS: ADMIT Internal Medicine Endocrinology, Diabetes & Metabolism; ATTEND Internal Medicine

== ENCOUNTER 2017-01-17 17:18 | Observation (INO) ==
[2017-01-17 17:42] LABS: Basophils # 0.1 K/mcL (0.0-0.2); Basophils % 0.4 %; Eosinophils # 0.5 K/mcL (0.0-0.6); Hematocrit 40.5 % (35.3-44.9); Hemoglobin 12.7 g/dL (11.5-15.4); Immature Granulocytes % 1.1 % (0-4); Lymphocytes # 1.9 K/mcL (0.6-4.6); Lymphocytes % 12.4 %; Mean Corpuscular HGB Conc 31.4 g/dL (31.6-35.5); Mean Corpuscular Hemoglobin 31.1 pg (28.0-33.3); Mean Platelet Volume 10.9 fL (9.4-12.4); Monocytes # 1.2 K/mcL (0.0-1.3); Monocytes % 7.9 %; Neutrophils # 11.5 K/mcL (1.6-8.9); Platelet Count 190 K/mcL (140-400); Red Blood Count 4.09 M/mcL (3.82-4.97); Segmented Neutrophils % 75.2 %
[2017-01-17 17:49] LABS: INR 1.2; Prothrombin Time 12.6 Seconds (9.4-12.1)
[2017-01-17 17:54] LABS: Calcium 9.6 mg/dL (8.6-10.8); Potassium 4.3 mEq/L (3.5-4.5)
--- NOTE | 2017-01-17 18:24 | Emergency Department Note ---
Disposition Clinical Impression: ACS (acute coronary syndrome), Elevated troponin Disposition: Admitted As Inpatient Condition: Good Referrals: NO,PCP [Primary Care Provider] - Forms: ED Satisfaction Letter Time of Disposition: 18:27 General Adult HPI - General Chief complaint: ED Chest Pain Stated complaint: CP Time Seen by Provider: 01/17/17 17:23 Source: patient, family, EMS Limitations: no limitations Nursing Notes Reviewed: Yes Vital Signs Reviewed: Yes - History of Present Illness HPI Narrative: Pelvic: 76-year-old female with history of hypertension pulmonary fibrosis from cardiology presents to the emergency department with 2 days of intermittent chest pain woke up out of sleep. Stress test but none recently. Also complains of some mild thigh discomfort. Denies fevers chills medication changes until contacts exotic food or recent travel. Patient was brought in by EMS. Was given a breathing treatment and felt a little bit better. Otherwise no history of COPD or asthma. Has never smoked. No occupational exposure. Patient resting in bed comfortably at this time. Pain Scale: 5 - Related Data Home Medications Medication Instructions Recorded Confirmed Aspirin Enteric Coated [Aspirin EC] 81 mg PO QPM #0 03/25/15 01/17/17 Carvedilol 12.5 mg PO BID #0 03/25/15 01/17/17 Furosemide [Lasix] 60 mg PO DAILY #0 03/25/15 01/17/17 Glimepiride [Amaryl] 2 mg PO QAM #0 03/25/15 01/17/17 Nitroglycerin [Nitrostat] 0.4 mg SL Q5M PRN #0 03/25/15 01/17/17 Omeprazole [PriLOSEC] 20 mg PO QAM #0 03/25/15 01/17/17 Sennosides [Senna] 8.6 mg PO DAILY PRN #0 03/25/15 01/17/17 Mirtazapine 30 mg PO HS 02/19/16 01/17/17 Oxygen 4 l NS AD 02/19/16 01/17/17 Potassium Chloride [Klor-Con 10 meq PO HS 02/19/16 01/17/17 Sprinkle] Cyclobenzaprine HCl 5 mg PO HS 08/26/16 01/17/17 Escitalopram [Lexapro] 10 mg PO QAM 08/26/16 01/17/17 Folic Acid [FA-8] 0.8 mg PO DAILY 08/26/16 01/17/17 Lisinopril [Zestril] 20 mg PO DAILY 08/26/16 01/17/17 SitaGLIPtin [Januvia] 100 mg PO DAILY 08/26/16 01/17/17 clonazePAM [Klonopin] 0.5 mg PO TID PRN 08/26/16 01/17/17 Escitalopram Oxalate 5 mg PO QPM 01/17/17 01/17/17 Magnesium Citrate [Citroma] 296 ml PO DAILY PRN 01/17/17 01/17/17 Magnesium Oxide [Magnesium] 500 mg PO DAILY 01/17/17 01/17/17 Previous Rx's Medication Instructions Recorded Docusate [Colace] 100 mg PO BID capsule 02/22/16 traMADol [Ultram] 50 mg PO Q8HR PRN #15 tablet 02/22/16 Gabapentin [Neurontin] 100 mg PO TID #60 capsule 08/28/16 Allergies Allergy/AdvReac Type Severity Reaction Status Date / Time Amoxicillin Allergy Swelling Verified 01/17/17 17:21 of Lip/Tongue/Throat Sulfa (Sulfonamide Allergy Swelling Verified 01/17/17 17:21 Antibiotics) of Lip/Tongue/Throat acetaminophen [From Percocet] AdvReac Nausea Verified 01/17/17 17:21 citalopram [From Celexa] AdvReac Dizziness Verified 01/17/17 17:21 codeine AdvReac Nausea Verified 01/17/17 17:21 [From Tylenol-Codeine] epinephrine AdvReac Headache Verified 01/17/17 17:21 Oxycodone [From Percocet] AdvReac Nausea Verified 01/17/17 17:21 Penicillins [PCN] AdvReac Itching Verified 01/17/17 17:21 Cardiovascular: Reports: chest pain, dyspnea on exertion Respiratory: Reports: dyspnea Gastrointestinal: Reports: nausea. Denies: vomiting Past Medical History - Past Medical History Attestation: Yes The following information was validated with the patient. Source: patient, old records reviewed, obtained from family Medical history: Reports: arthritis, cancer, cardiomyopathy, CHF, COPD, coronary artery disease, diabetes, GERD, hyperlipidemia, hypertension, malignancy, osteoporosis, renal disease, other Surgical history: Reports: cancer surgery (Left breast lumpectomy), cataract ( Bilateral cataract surgery with lens implants), hip replacement (Right hip replacement), orthopedic, other, pacemaker/AICD, other Psychiatric history: Reports: anxiety, depression [employer] history: Reports: no [employer] history - Social History Smoking Status: Former smoker Smokeless Tobacco Status: No Alcohol use: Reports: none Drug use: Reports: none Physical Exam - General Limitations: no limitations General appearance: in distress - Head Head exam: atraumatic, normocephalic - Eye Eye exam: Present: normal appearance, PERRL - ENT ENT exam: normal exam, normal oropharynx - Neck Neck exam: Present: normal inspection, full ROM - Chest Chest inspection: Present: normal inspection, symmetric chest wall rise - Respiratory Respiratory exam: Present: normal lung sounds bilaterally. Absent: respiratory distress, accessory muscle use - Cardiovascular Cardiovascular exam: Present: regular rate, normal rhythm - Abdominal Exam Abdominal exam: Present: soft, Non-Tender - Extremities Exam Extremities exam: Present: normal inspection, full ROM Course - Reevaluation(s) Reevaluation #1: ED workup is complete. Elevationoftroponin.Chronickidneyinjury.Patientisrestingcomfortablyinbed.Discuss edthecasewiththehospitalistDrTan.Patientacceptedforadmissionstablecondition. Time: 18:44 Vital Signs Temperature 98 F 01/17/17 17:22 Pulse Rate 78 01/17/17 17:22 Respiratory Rate 24 01/17/17 17:22 Blood Pressure 135/109 01/17/17 17:22 O2 Sat by Pulse Oximetry 99 01/17/17 17:22 Temperature 98 F 01/17/17 17:22 Pulse Rate 78 01/17/17 17:22 Respiratory Rate 24 01/17/17 17:22 Blood Pressure 135/109 01/17/17 17:22 O2 Sat by Pulse Oximetry 99 01/17/17 17:22 Oxygen Delivery Oxygen Delivery Room Air Medical Decision Making - Lab Data Result diagrams: 01/17/17 17:30 01/17/17 17:30 Lab Results 01/17/17 01/17/17 01/17/17 Range/Units 17:30 17:30 17:30 WBC 15.2 H (4.3-11.1) K/mcL RBC 4.09 (3.82-4.97) M/mcL Hgb 12.7 (11.5-15.4) g/dL Hct 40.5 (35.3-44.9) % MCV 99.0 (83.0-100.0) fL MCH 31.1 (28.0-33.3) pg MCHC 31.4 L (31.6-35.5) g/dL RDW 16.0 H (11.5-14.5) % Plt Count 190 (140-400) K/mcL MPV 10.9 (9.4-12.4) fL Immature Gran % 1.1 (0-4) % Seg Neutrophils % 75.2 % Lymphocytes % 12.4 % Monocytes % 7.9 % Eosinophils % 3.0 % Basophils % 0.4 % Neutrophils # 11.5 H (1.6-8.9) K/mcL Lymphocytes # 1.9 (0.6-4.6) K/mcL Monocytes # 1.2 (0.0-1.3) K/mcL Eosinophils # 0.5 (0.0-0.6) K/mcL Basophils # 0.1 (0.0-0.2) K/mcL PT 12.6 H (9.4-12.1) Seconds INR 1.2 Sodium 136 (136-145) mEq/L Potassium 4.3 (3.5-4.5) mEq/L Chloride 98 (98-109) mEq/L Carbon Dioxide 30 H (19-29) mEq/L BUN 31 H (7-20) mg/dL Creatinine 1.64 H (0.57-1.11) mg/dL Est GFR ( Amer) 37 L (> 60) Est GFR (Non-Af Amer) 30 L (> 60) BUN/Creatinine Ratio 19 (6-26) Glucose 248 H (70-99) mg/dL Calculated Osmolality 297 (280-300) Calcium 9.6 (8.6-10.8) mg/dL Troponin I (0-0.03) ng/mL 01/17/17 Range/Units 17:30 WBC (4.3-11.1) K/mcL RBC (3.82-4.97) M/mcL Hgb (11.5-15.4) g/dL Hct (35.3-44.9) % MCV (83.0-100.0) fL MCH (28.0-33.3) pg MCHC (31.6-35.5) g/dL RDW (11.5-14.5) % Plt Count (140-400) K/mcL MPV (9.4-12.4) fL Immature Gran % (0-4) % Seg Neutrophils % % Lymphocytes % % Monocytes % % Eosinophils % % Basophils % % Neutrophils # (1.6-8.9) K/mcL Lymphocytes # (0.6-4.6) K/mcL Monocytes # (0.0-1.3) K/mcL Eosinophils # (0.0-0.6) K/mcL Basophils # (0.0-0.2) K/mcL PT (9.4-12.1) Seconds INR Sodium (136-145) mEq/L Potassium (3.5-4.5) mEq/L Chloride (98-109) mEq/L Carbon Dioxide (19-29) mEq/L BUN (7-20) mg/dL Creatinine (0.57-1.11) mg/dL Est GFR ( Amer) (> 60) Est GFR (Non-Af Amer) (> 60) BUN/Creatinine Ratio (6-26) Glucose (70-99) mg/dL Calculated Osmolality (280-300) Calcium (8.6-10.8) mg/dL Troponin I 0.05 H* (0-0.03) ng/mL - EKG Data EKG #1 EKG attestation: Yes I reviewed and interpreted this EKG. EKG results narrative: EKG interpreted without cardiology shows ventricular pacemaker at 77 bpm. We will 140 ms, church and 71 ms QT corrected of 464. No acute ischemic changes are noted. No acute changes when compared to prior EKG 08/25/2016.
--- NOTE | 2017-01-17 20:39 | Internal Med History&Physical ---
<Angel Bernardo - Last Filed: 01/17/17 22:33> Date of Encounter: 01/17/17 Time of Encounter: 20:37 Assessment and Plan (1) Chest pain Current visit: Yes Status: Acute Patient presented with substernal right sided chest pressure/pain described as heavy and sharp, radiating into her left upper extremity. Exacerbated with activity and relieved with sublingual nitroglycerin. - Significant medical history of systolic and diastolic heart failure with an ejection fraction of 30% and global left ventricular hypokinesis. - History of hypertension, hyperlipidemia, type 2 diabetes, pacemaker 100% paced - Troponin of 0.05 Plan: - Admit to general medical floor, placed on youth nutritional monitor - Maximize cardiac therapy with beta abdirashid, statin, aspirin, sublingual nitroglycerin when necessary, oxygen - Start Imdur 30 PO daily - Trend troponins 3 - Nuclear medicine stress test in the morning - Nothing by mouth after midnight Qualifiers: Qualified Code(s): R07.9 - Chest pain, unspecified (2) Elevated troponin Current visit: Yes Status: Acute Elevated troponin of 0.05, reviewed previous troponin levels as patient has have chronic kidney disease. This appears to be the highest troponin thus far. Plan: - Trend troponins x3 (3) Diabetes mellitus type 2 in obese Current visit: Yes Status: Acute Patient is known type II diabetic, hyperglycemic at presentation. Plan: - Before meals at bedtime glucose checks - Subcutaneous insulin low-dose and adjust as necessary. (4) Combined systolic and diastolic congestive heart failure Current visit: Yes Status: Acute Patient has known ischemic cardiomyopathy, last echocardiogram was August 2016 with an ejection fraction of 30%, global left ventricular hypokinesis. - Patient clinically appears slightly positive fluid balance status. - We will continue Lasix, fluid and sodium restrictions, daily weights. - Continue to maximize cardiac therapy Qualifiers: Congestive heart failure chronicity: acute Qualified Code(s): I50.41 - Acute combined systolic (congestive) and diastolic (congestive) heart failure (5) GERD (gastroesophageal reflux disease) Current visit: No Status: Acute Stable. Protonix 40 mg IV daily. Qualifiers: Esophagitis presence: without esophagitis Qualified Code(s): K21.9 - Gastro -esophageal reflux disease without esophagitis (6) Urinary incontinence Current visit: Yes Status: Acute Patient has had difficulty starting urinating. She does present with an elevated WBC of 15. Denies any fevers or chills but has had diaphoresis. Denies any burning with urination. Acute kidney injury on chronic kidney disease. Plan: - Urinalysis with reflex culture - IV Levaquin 750 Q48h Qualifiers: Urinary Incontinence type: stress incontinence Qualified Code(s): N39.3 - Stress incontinence (female) (male) (7) Interstitial lung disease Current visit: Yes Status: Acute Known history of interstitial lung disease. Baseline oxygen requirement is 4 L. Currently requiring 4.5 L. Plan: - Continue nasal cannula oxygen and wean as tolerated - We will diuresis as patient appears slightly fluid positive with some mild pulmonary congestion appreciated on chest x-ray. - Dual nebs and albuterol nebulizer when necessary (8) Acute on chronic kidney failure Current visit: Yes Status: Acute Patient presents with acute on chronic kidney disease with baseline chronic kidney disease stage III. Current creatinine is 1.64 with a GFR of 30. Baseline GFR appears to be around 42. - Patient complains of difficulty with urination - Diaphoresis, laboratory results demonstrate elevated WBC. Plan: - Urinalysis with reflex culture - Diuresis this patient appears to be slightly fluid positive - Renally dosed antibiotics and avoid nephrotoxic medications Qualifiers: Chronic kidney disease stage: stage 3 (moderate) Qualified Code(s): N17.9 - Acute kidney failure, unspecified; N18.3 - Chronic kidney disease, stage 3 ( moderate) (9) DVT prophylaxis Current visit: Yes Status: Acute Subcutaneous heparin every 8 hours. Internal Medicine - H&P: HPI Chief complaint: chest pain Admitted From: Home Plans for Post Hospital Care: Home History of present illness: Ms. Griffin is a 76 year old female 76 year old female with PMHx of CHF (last echo 08/2016 showed LVEF 30%), DM, HTN, HLD, interstitial lung disease (on 4L home oxygen), CKD3, [place] admitted from the emergency department with chest pain and yellow to white sputum production. Ms. Griffin lives at home with her and ambulates with a walker. She says that over the past 3-4 weeks she has had increased sputum production with little bit of abdominal discomfort, originally the sputum was green in color and is now yellow to white in the last 24 hours. She has any fevers chills but does have diaphoresis. She also mentions that she has had right-sided chest pain that radiated down her left arm but not to her jaw or her back. She notices the pain more when she is ambulating and walking around and not so much at rest. What relieves the chest pain is sublingual nitroglycerin. She had an episode of chest pain yesterday relieved by nitroglycerin and a second episode today which she did not take nitroglycerin until EMS arrived. She said that EMS gave her a breathing treatment which did improve her right-sided chest discomfort somewhat. She is currently without chest pain. She has also had urinary retention and difficulty passing urine today. She does have a history of chronic kidney disease was supposed to follow up with a urologist but did not do so. She denies any burning or blood in her urine. She denies any nausea vomiting diarrhea but does have constipation which is chronic in nature. Of note she also has been feeling more short of breath recently and has a history of interstitial lung disease with a baseline 4 L of oxygen. Past Med Surg Social Fam HX - Past Medical History Medical history: arthritis, cancer, cardiomyopathy, CHF, COPD, coronary artery disease, diabetes, GERD, hyperlipidemia, hypertension, malignancy, osteoporosis , renal disease, other Psychiatric history: anxiety, depression - Past Surgical History Surgical History: cancer surgery (Left breast lumpectomy), cataract (Bilateral cataract surgery with lens implants), hip replacement (Right hip replacement), orthopedic, other, pacemaker/AICD, other - Social History Smoking Status: Former smoker Smokeless Tobacco Status: No Alcohol use: none Drug use: none - Family History Mother Adopted: No Living Status: Hx Family Cardiac Disorders: Yes Hx Family Respiratory Disorders: No Hx Family Cancer: No Hx Family GI Disorders: No Hx Family Endocrine Disorder: No Hx Family Neuromuscular Disorders: No Hx Family Neurologic Disorders: No Hx Family HEENT Disorders: No Hx Family Autoimmune Disorders: No Father Living Status: Hx Family Cardiac Disorders: Yes Sister Living Status: Hx Family Neurologic Disorders: Yes (Alzheimer's) Internal Medicine - H&P: Meds Aspirin Enteric Coated [Aspirin EC] 81 mg PO QPM #0 03/25/15 [History] Carvedilol 12.5 mg PO BID #0 03/25/15 [History] Furosemide [Lasix] 60 mg PO DAILY #0 03/25/15 [History] Glimepiride [Amaryl] 2 mg PO QAM #0 03/25/15 [History] Nitroglycerin [Nitrostat] 0.4 mg SL Q5M PRN #0 03/25/15 [History] Omeprazole [PriLOSEC] 20 mg PO QAM #0 03/25/15 [History] Sennosides [Senna] 8.6 mg PO DAILY PRN #0 03/25/15 [History] Mirtazapine 30 mg PO HS 02/19/16 [History] Oxygen 4 l NS AD 02/19/16 [History] Potassium Chloride [Klor-Con Sprinkle] 10 meq PO HS 02/19/16 [History] Docusate [Colace] 100 mg PO BID capsule 02/22/16 [Rx] traMADol [Ultram] 50 mg PO Q8HR PRN #15 tablet 02/22/16 [Rx] Cyclobenzaprine HCl 5 mg PO HS 08/26/16 [History] Escitalopram [Lexapro] 10 mg PO QAM 08/26/16 [History] Folic Acid [FA-8] 0.8 mg PO DAILY 08/26/16 [History] Lisinopril [Zestril] 20 mg PO DAILY 08/26/16 [History] SitaGLIPtin [Januvia] 100 mg PO DAILY 08/26/16 [History] clonazePAM [Klonopin] 0.5 mg PO TID PRN 08/26/16 [History] Gabapentin [Neurontin] 100 mg PO TID #60 capsule 08/28/16 [Rx] Escitalopram Oxalate 5 mg PO QPM 01/17/17 [History] Magnesium Citrate [Citroma] 296 ml PO DAILY PRN 01/17/17 [History] Magnesium Oxide [Magnesium] 500 mg PO DAILY 01/17/17 [History] Allergies Amoxicillin Allergy (Verified 01/17/17 17:21) Swelling of Lip/Tongue/Throat Sulfa (Sulfonamide Antibiotics) Allergy (Verified 01/17/17 17:21) Swelling of Lip/Tongue/Throat acetaminophen [From Percocet] Adverse Reaction (Verified 01/17/17 17:21) Nausea citalopram [From Celexa] Adverse Reaction (Verified 01/17/17 17:21) Dizziness codeine [From Tylenol-Codeine] Adverse Reaction (Verified 01/17/17 17:21) Nausea epinephrine Adverse Reaction (Verified 01/17/17 17:21) Headache Oxycodone [From Percocet] Adverse Reaction (Verified 01/17/17 17:21) Nausea Penicillins [PCN] Adverse Reaction (Verified 01/17/17 17:21) Itching All Systems PM: A 10-system review of systems was performed and is negative for pertinent findings except as documented above in the HPI. - Constitutional Constitutional: night sweats, no chills, no fever(s) - EENT Eyes: no change in vision, no discharge, no pain, no photophobia Ears: no ear discharge, no ear pain, no tinnitus Nose, mouth and throat: no dysphagia, no nasal discharge, no neck pain, no sore throat - Cardiovascular Cardiovascular ROS IM: chest pain, dyspnea, no diaphoresis, no lightheadedness, no palpitations, no syncope - Respiratory Respiratory: cough, excessive phlegm production, change in phlegm color, no dyspnea, no wheezing - Gastrointestinal Gastrointestinal: heartburn, no abdominal pain, no diarrhea, no hematemesis, no hematochezia, no melena, no nausea, no vomiting - Genitourinary Genitourinary: change in urinary stream, difficulty voiding, no dysuria, no flank pain, no hematuria - Musculoskeletal Musculoskeletal ROS IM: no numbness, no tingling - Integumentary Integumentary IM: no rash, no unusual bruising - Neurological Neurological ROS: no confusion, no convulsions, no focal weakness, no numbness, no tingling, no tremor(s) - Hematologic/Lymphatic Hematologic/Lymphatic: no easy bruising - Constitutional Vitals: Temp Pulse Resp BP Pulse Ox 98 F 85 18 151/88 99 01/17/17 17:22 01/17/17 18:59 01/17/17 20:24 01/17/17 20:24 01/17/17 18:59 Exam: General: Patient alert, awake, oriented 3, interactive, in no acute distress HEENT: Normocephalic, atraumatic, pupils equal reactive to light, nasal cavity patent and open septum median position, oral mucosa moist, uvula midline, neck supple trachea midline no palpable lymphadenopathy, no thyromegaly. Chest: Symmetric bilateral correlating with respiratory effort, effort nonlabored. Cardiac: Regular rate and rhythm, grade 3/6 systolic ejection murmur. no bruits appreciated bilateral carotids, Radial pulses 2+ bilateral, posterior tibial and dorsal pedal pulses 2+ bilateral. Respiratory: Reduced bronchovesicular breath sounds with end inspiratory crackles in the bilateral lung bases. Abdomen: Soft, nontender, positive bowel sounds, no palpable masses appreciated on examination Extremities: Symmetric bilateral, bilateral lower extremities with trace edema patient moving all 4 extremities spontaneously. Neurologic: No focal deficits appreciated on examination. Face symmetric, muscle strength symmetric bilateral upper and lower extremities. Internal Med - H&P Results - Labs CBC & Chem 7: 01/17/17 17:30 01/17/17 17:30 <DemetriaNick - Last Filed: 01/18/17 04:35> Date of Encounter: 01/17/17 Internal Medicine - H&P: HPI History of present illness: Ms. Griffin is a 76 year old female All Systems PM: A 10-system review of systems was performed and is negative for pertinent findings except as documented above in the HPI. - Constitutional Vitals: Temp Pulse Resp BP Pulse Ox 97.6 F 60 16 133/71 95 01/18/17 02:50 01/18/17 02:50 01/18/17 02:50 01/18/17 02:50 01/18/17 02:50 Internal Med - H&P Results - Labs CBC & Chem 7: 01/18/17 03:16 01/17/17 17:30 Labs: Short CBC 01/18/17 Range/Units 03:16 WBC 15.5 H (4.3-11.1) K/mcL Hgb 11.8 (11.5-15.4) g/dL Hct 37.5 (35.3-44.9) % Plt Count 174 (140-400) K/mcL Neutrophils # 11.4 H (1.6-8.9) K/mcL Cardiac Enzymes 01/17/17 Range/Units 21:32 Troponin I 0.06 H* (0-0.03) ng/mL Urine 01/17/17 Range/Units 22:40 Urine Color Yellow (Yellow) Urine Clarity Clear (Clear) Urine pH 6.0 (5.0-8.0) pH Units Ur Specific [place] 1.011 (1.010-1.025) Urine Protein Negative (Neg-Trace) mg/dL Urine Glucose (UA) Normal (Normal) mg/dL - EKG Data -: EKG Interpreted by Myself - Diagnostic Studies Chest x-ray Status: image reviewed by me - Attending Attestation I personally interviewed and examined this patient and my medical decision- making was reviewed with the Resident Physician. I agree with the documented findings, disposition and treatment plan as described. Patient will benefit from long acting nitrate as part of optimizing medical management prior to considering any invasive interventions. Nick Augustin MD, MPH Hospitalist
[2017-01-17] MEDS ORDERED: Naloxone 0.4 MG/ML INJ IVP PRN (21:06)
[2017-01-17] MEDS ORDERED: Ondansetron ODT 4 MG TAB.RAPDIS SL PRN (21:11)
[2017-01-17] MEDS ORDERED: *HR* Morphine 2 MG/ML SYRINGE IVP PRN (21:11)
[2017-01-17] MEDS ORDERED: Sennosides 8.6 MG TABLET PO PRN (21:15)
[2017-01-17] MEDS ORDERED: clonazePAM 0.5 MG TABLET PO PRN (21:15)
[2017-01-17] MEDS ORDERED: Nitroglycerin 0.4 MG TAB.SUBL SL PRN (21:15)
[2017-01-17] MEDS ORDERED: D5% in Water 1,000 ML IVC PRN (21:19)
[2017-01-17] MEDS ORDERED: Dextrose Gel 15 GM PO PRN ×2 (21:19)
[2017-01-17] MEDS ORDERED: *HR* Dextrose 50 % in Water (Syg) 50 ML SYRINGE IVP PRN (21:19)
[2017-01-17] MEDS: *HR* Heparin 5,000 UNIT/ML VIAL SQ SCH (21:35)
[2017-01-17 22:55] LABS: Bilirubin,Urine Negative (Negative); Blood,Urine Negative (Negative); Clarity,Urine Clear (Clear); Color,Urine Yellow (Yellow); Glucose,Urine (UA) Normal (Normal); Ketones,Urine Negative (Negative); Leukocyte Esterase,Urine Small (Negative); Nitrite,Urine Negative (Negative); Protein,Urine Negative (Neg-Trace); Specific Gravity,Urine 1.011 (1.010-1.025); Urobilinogen,Urine Normal (Normal)
[2017-01-17 22:57] LABS: Bacteria,Urine None Seen per hpf (None-Few); Hyaline Casts,Urine None Seen per lpf (None-Few); RBC,Urine 0-3 per hpf (0-3); Squamous Epithelial Cell,Urine Many per lpf (None-Few)
[2017-01-17] MEDS ORDERED: Levofloxacin 750 MG/150 ML 750 MG/150 ML BAG IVPB SCH (23:00)
[2017-01-18 04:01] LABS: Basophils # 0.1 K/mcL (0.0-0.2); Basophils % 0.3 %; Eosinophils # 0.6 K/mcL (0.0-0.6); Eosinophils % 3.6 %; Hematocrit 37.5 % (35.3-44.9); Hemoglobin 11.8 g/dL (11.5-15.4); Immature Granulocytes % 0.7 % (0-4); Lymphocytes # 2.1 K/mcL (0.6-4.6); Lymphocytes % 13.6 %; Mean Corpuscular HGB Conc 31.5 g/dL (31.6-35.5); Mean Corpuscular Hemoglobin 31.1 pg (28.0-33.3); Mean Corpuscular Volume 98.7 fL (83.0-100.0); Mean Platelet Volume 10.7 fL (9.4-12.4); Monocytes # 1.2 K/mcL (0.0-1.3); Neutrophils # 11.4 K/mcL (1.6-8.9); Platelet Count 174 K/mcL (140-400); Segmented Neutrophils % 73.8 %
[2017-01-18 04:23] LABS: Calcium 9.2 mg/dL (8.6-10.8); Chol/HDL Ratio 6.6 (0-4.9)
[2017-01-18 04:35] LABS: Potassium 4.1 mEq/L (3.5-4.5)
[2017-01-18] MEDS: *HR* Heparin 5,000 UNIT/ML VIAL SQ SCH ×3 (06:01→21:18)
[2017-01-18] MEDS: Pantoprazole 40 MG VIAL IVP SCH (08:03)
[2017-01-18] MEDS: Insulin LISPRO 300 UNITS/3 ML VIAL SQ SCH ×3 (08:03→18:13)
[2017-01-18] MEDS: Furosemide 40 MG/4 ML VIAL IVP SCH ×2 (08:03→21:18)
[2017-01-18] MEDS: Isosorbide MONOnitrate (24 HR) 30 MG TAB.ER.24H PO SCH (08:04)
[2017-01-18] MEDS: Magnesium Oxide 400 MG TABLET PO SCH (08:04)
[2017-01-18] MEDS: Gabapentin 100 MG CAPSULE PO SCH ×3 (08:05→21:15)
--- NOTE | 2017-01-18 10:51 | Internal Med Progress Note ---
Date of Encounter: 01/18/17 Time of Encounter: 08:20 - Assessment and plan (1) Chest pain Current Visit: Yes Status: Acute Assessment and plan: Patient is pain-free today. Patient reports right-sided chest pain at rest that she awakened with yesterday morning. She describes it as a heaviness and without radiation. 2 days ago she had left-sided chest pain that radiated down her left arm, also at rest. Quality was the same. She reports fatigue and productive cough for 2 weeks. She has no peripheral edema, lung sounds are diminished with some crackles heard posteriorly. Patient has an elevated BNP. Chest x-ray shows no consolidations, but effusions and diffuse vascular congestion. Troponins are mildly elevated in the setting of CHF and chronic renal failure. Troponin 0.062. Patient has been started on Imdur 30 mg by mouth daily and will continue her beta abdirashid, statin, aspirin, nitroglycerin sublingual when necessary, and oxygen. Continue telemetry Continue to monitor her labs Nitroglycerin as needed for chest pain Chest X-Ray 01/17/17 17:23 IMPRESSION: No significant change compared to prior study. Redemonstration of findings most compatible of mild marrow edema with probable trace bilateral pleural effusions, diffuse vascular congestion/interstitial prominence, and stable cardiomegaly. Otherwise no acute consolidation. D/ / 01/17/2017 17:49:59 Atilio Bender MD / Kenyatta Ahn Interpreting Provider: Atilio Bender MD Qualifiers: Chest pain type: unspecified Qualified Code(s): R07.9 - Chest pain, unspecified (2) Diabetes Current Visit: No Status: Chronic Assessment and plan: Chronic. Sliding scale insulin, eye checks before meals at bedtime, diabetic diet. A1c was 5.8 in October. 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 Echocardiogram in August, showed LVEF of 30% with mildly dilated left ventricle, severe global systolic dysfunction, atypical septal motion consistent with a paced rhythm, grossly mildly dilated right ventricle with normal appearing function, indeterminate diastolic function. There is no evidence of pulmonary hypertension there is a visualized device lead, and no significant valvular dysfunction. Patient appears to be euvolemic. She has no abdominal distention/edema, no peripheral edema. Lungs are diminished with crackles. Continue Lasix, fluid and sodium restrictions, daily weights. Continue aspirin, statin, beta abdirashid, Imdur. Qualifiers: Congestive heart failure chronicity: acute Qualified Code(s): I50.41 - Acute combined systolic (congestive) and diastolic (congestive) heart failure (4) Chronic interstitial lung disease Current Visit: No Status: Chronic Assessment and plan: Chronic interstitial lung disease per history. Patient normally wears 4 L of oxygen at home. We will continue here. Duonebs and albuterol nebulizers as necessary (5) GERD (gastroesophageal reflux disease) Current Visit: No Status: Acute Assessment and plan: Chronic. Continue PPI. Qualifiers: Esophagitis presence: without esophagitis Qualified Code(s): K21.9 - Gastro -esophageal reflux disease without esophagitis (6) Urinary incontinence Current Visit: Yes Status: Acute Assessment and plan: Patient reports incontinence and recent difficulty starting urine. Patient has leukocytosis, white count 15 on arrival. She denies any urinary symptoms, flank pain, abdominal pain, fever, chills, dysuria, frequency.. She does report increased fatigue over the last 2 weeks. Urine had a trace of leukocyte esterase with no bacteria. Urine culture is pending. Levaquin 750 mg IV every 48 hours. Continue to monitor renal function. Qualifiers: Urinary Incontinence type: stress incontinence Qualified Code(s): N39.3 - Stress incontinence (female) (male) (7) Elevated troponin Current Visit: Yes Status: Acute Assessment and plan: Flat and adynamic troponin elevation, 0.062 in the setting of CHF and stage III chronic renal failure. Patient denies chest pain. Continue home medications Continue telemetry Continue aspirin, beta abdirashid, statin, Imdur. (8) Acute on chronic kidney failure Current Visit: Yes Status: Chronic Assessment and plan: Patient presents with elevated BUN and creatinine. Renal function appears to be improving. Creatinine is 1.47 today decreased from 1.64 yesterday. GFR 34 today. Avoid nephrotoxins and NSAIDs. Renally dosed antibiotics. Continue to monitor labs. Qualifiers: Acute renal failure type: unspecified Chronic kidney disease stage: stage 3 (moderate) Qualified Code(s): N17.9 - Acute kidney failure, unspecified; N18.3 - Chronic kidney disease, stage 3 (moderate) - Time Spent With Patient less than 15 minutes - Subjective Interval history: Patient was seen and evaluated 8:20 AM. She was sitting in her bed eating breakfast. She is alert and oriented, speech is clear, she is very pleasant. She reports right-sided chest pain that began while at rest yesterday, she states it she thinks she woke up with it yesterday morning. She describes that as heavy without radiation, right mid chest pain. She reports that 2 days ago she had left chest pain with radiation to her left arm at rest. Quality remained the same. She reports increased fatigue, shortness of breath for the last 2 weeks. Patient states that she has home health nurse who comes weekly, she does not have any aide services. She also reports a productive cough for the last 2 weeks. She says that the sputum color has changed several times, currently today it is carrasco. I have ordered sputum collection for culture and Gram stain. Patient appears to be dyspneic while we are speaking. She has been at rest, she is able to speak in short phrases. - Constitutional Vitals: Temp Pulse Resp BP Pulse Ox 97.4 F L 74 18 128/86 96 01/18/17 06:53 01/18/17 06:53 01/18/17 06:53 01/18/17 06:53 01/18/17 06:53 General appearance: Present: cooperative, mild distress, pleasant, answers questions appropriately - Head Head exam: Present: normal inspection - Eye Eye exam: Present: normal appearance, conjuntiva pink - ENT ENT exam: Present: mucous membranes moist, normal exam, normal external ear exam - Neck Neck exam general surgery: Present: normal inspection. Absent: lymphadenopathy , tenderness - Respiratory Respiratory exam: Present: decreased breath sounds, rales, respiratory distress. Absent: accessory muscle use, chest wall tenderness, stridor, wheezes - Cardiovascular Cardiovascular exam: Present: RRR, +S1, +S2. Absent: diastolic murmur, systolic murmur - GI/Abdominal GI/Abdominal exam: Present: distended, normal bowel sounds, soft. Absent: hepatomegaly, tenderness - Extremities Exam Extremities exam: Present: normal capillary refill, normal inspection, warm, radial pulses palpable and symetrical. Absent: pedal edema, tenderness - Back Exam Back exam: Present: normal inspection. Absent: tenderness - Neurological Exam Neurological exam: Present: alert, oriented X3, no focal deficits. Absent: facial droop, speech deficit - Skin Skin exam: Present: dry, normal color, warm Internal Medicine: Result - Labs CBC & Chem 7: 01/18/17 03:16 01/18/17 03:16 Labs: Short CBC 01/18/17 Range/Units 03:16 WBC 15.5 H (4.3-11.1) K/mcL Hgb 11.8 (11.5-15.4) g/dL Hct 37.5 (35.3-44.9) % Plt Count 174 (140-400) K/mcL Neutrophils # 11.4 H (1.6-8.9) K/mcL BMP 01/18/17 03:16 Sodium 139 Potassium 4.1 Chloride 101 Carbon Dioxide 31 H BUN 30 H Creatinine 1.47 H Glucose 131 H Calcium 9.2 Cardiac Enzymes 01/17/17 01/18/17 01/18/17 Range/Units 21:32 03:16 09:15 Troponin I 0.06 H* 0.06 H* 0.06 H* (0-0.03) ng/mL Urine 01/17/17 Range/Units 22:40 Urine Color Yellow (Yellow) Urine Clarity Clear (Clear) Urine pH 6.0 (5.0-8.0) pH Units Ur Specific [place] 1.011 (1.010-1.025) Urine Protein Negative (Neg-Trace) mg/dL Urine Glucose (UA) Normal (Normal) mg/dL - ABG Interpretation ABG results: PT/INR, D-dimer PT 12.6 Seconds (9.4-12.1) H 01/17/17 17:30 Consult Discharge Plan - Plan Referrals: NO,PCP [Primary Care Provider] -
[2017-01-18] MEDS ORDERED: Aspirin Enteric Coated 81 MG Tablet PO SCH (18:00)
[2017-01-18] MEDS ORDERED: Mirtazapine 15 MG TABLET PO SCH (21:00)
[2017-01-18] MEDS ORDERED: Insulin LISPRO 300 UNITS/3 ML VIAL SQ SCH (21:00)
[2017-01-19 04:28] LABS: Basophils # 0.1 K/mcL (0.0-0.2); Basophils % 0.5 %; Eosinophils # 0.5 K/mcL (0.0-0.6); Eosinophils % 3.9 %; Hematocrit 38.8 % (35.3-44.9); Hemoglobin 12.1 g/dL (11.5-15.4); Immature Granulocytes % 0.6 % (0-4); Lymphocytes # 2.1 K/mcL (0.6-4.6); Lymphocytes % 15.7 %; Mean Corpuscular HGB Conc 31.2 g/dL (31.6-35.5); Mean Corpuscular Hemoglobin 30.9 pg (28.0-33.3); Mean Corpuscular Volume 99.2 fL (83.0-100.0); Mean Platelet Volume 10.7 fL (9.4-12.4); Monocytes # 1.2 K/mcL (0.0-1.3); Monocytes % 9.2 %; Neutrophils # 9.3 K/mcL (1.6-8.9); Platelet Count 177 K/mcL (140-400); Red Blood Count 3.91 M/mcL (3.82-4.97); Red Cell Distribution Width 16.2 % (11.5-14.5); Segmented Neutrophils % 70.1 %
[2017-01-19 04:41] LABS: Calcium 9.4 mg/dL (8.6-10.8); Potassium 3.6 mEq/L (3.5-4.5)
[2017-01-19] MEDS: *HR* Heparin 5,000 UNIT/ML VIAL SQ SCH ×2 (06:14→15:46)
[2017-01-19] MEDS: Insulin LISPRO 300 UNITS/3 ML VIAL SQ SCH ×2 (07:53→12:14)
[2017-01-19] MEDS: Gabapentin 100 MG CAPSULE PO SCH ×2 (07:54→15:46)
[2017-01-19] MEDS: Pantoprazole 40 MG VIAL IVP SCH (07:54)
[2017-01-19] MEDS: Magnesium Oxide 400 MG TABLET PO SCH (07:54)
[2017-01-19] MEDS: Furosemide 40 MG/4 ML VIAL IVP SCH (07:54)
[2017-01-19] MEDS: Isosorbide MONOnitrate (24 HR) 30 MG TAB.ER.24H PO SCH (12:14)
[2017-01-19 15:21] VITALS: BP 127/89
--- NOTE | 2017-01-19 17:05 | Internal Med Progress Note ---
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 Current Visit: Yes Status: Acute Qualifiers: Congestive heart failure chronicity: acute Qualified Code(s): I50.41 - Acute combined systolic (congestive) and diastolic (congestive) heart failure (4) Chronic interstitial lung disease Current Visit: No Status: Chronic (5) GERD (gastroesophageal reflux disease) Current Visit: No Status: Acute Qualifiers: Esophagitis presence: without esophagitis Qualified Code(s): K21.9 - Gastro -esophageal reflux disease without esophagitis (6) Urinary incontinence Current Visit: Yes Status: Acute Qualifiers: Urinary Incontinence type: stress incontinence Qualified Code(s): N39.3 - Stress incontinence (female) (male) (7) Elevated troponin Current Visit: Yes Status: Acute (8) Acute on chronic kidney failure Current Visit: Yes Status: Chronic Qualifiers: Acute renal failure type: unspecified Chronic kidney disease stage: stage 3 (moderate) Qualified Code(s): N17.9 - Acute kidney failure, unspecified; N18.3 - Chronic kidney disease, stage 3 (moderate) - Subjective Interval history: Patient was seen and assessed at 8:40 AM. She says that she feels significantly better today and wants to go home. She wears 4 L of oxygen at home. She is also wearing that here. Patient has history of interstitial lung disease. Her lungs are clear and diminished, faint expiratory wheeze heard in left base. I discussed her lipid profile with her. She said that she has been on a statin before and it made her legs hurt. She is not interested in starting another type of medication. - Constitutional Vitals: Temp Pulse Resp BP Pulse Ox 98.2 F 78 15 127/89 96 01/19/17 15:20 01/19/17 15:20 01/19/17 15:20 01/19/17 15:20 01/19/17 15:20 General appearance: Present: cooperative, mild distress, pleasant, answers questions appropriately Internal Medicine: Result - Labs CBC & Chem 7: 01/19/17 04:10 01/19/17 04:10 Labs: Short CBC 01/19/17 Range/Units 04:10 WBC 13.3 H (4.3-11.1) K/mcL Hgb 12.1 (11.5-15.4) g/dL Hct 38.8 (35.3-44.9) % Plt Count 177 (140-400) K/mcL Neutrophils # 9.3 H (1.6-8.9) K/mcL BMP 01/19/17 04:10 Sodium 140 Potassium 3.6 Chloride 100 Carbon Dioxide 34 H BUN 26 H Creatinine 1.54 H Glucose 174 H Calcium 9.4 - ABG Interpretation ABG results: PT/INR, D-dimer PT 12.6 Seconds (9.4-12.1) H 01/17/17 17:30 Consult Discharge Plan - Plan Referrals: NO,PCP [Primary Care Provider] -
--- NOTE | 2017-01-19 17:07 | Discharge Summary ---
Date of Encounter: 01/19/17 Time of Encounter: 08:40 - Discharge Diagnosis (1) Chest pain Priority: Primary Status: Acute Comments: She has been pain-free today. Patient has been started on Imdur 30 mg by mouth daily, will continue her beta abdirashid, statin, aspirin, nitroglycerin sublingual as necessary and 4 L of oxygen at home. Her lungs are diminished throughout with faint expiratory wheezing heard in left base. Patient has possibly +1 nonpitting edema to bilateral lower extremities. She says this is normal for her and has not changed. She has states that she is feeling significantly better and wants to go home today. She will continue her home dose of Lasix with the above-mentioned medicine. Chest X-Ray 01/17/17 17:23 IMPRESSION: No significant change compared to prior study. Redemonstration of findings most compatible of mild marrow edema with probable trace bilateral pleural effusions, diffuse vascular congestion/interstitial prominence, and stable cardiomegaly. Otherwise no acute consolidation. D/ / 01/17/2017 17:49:59 Atilio Bender MD / Kenyatta Ahn Interpreting Provider: Atilio Bender MD Qualifiers: Chest pain type: unspecified Qualified Code(s): R07.9 - Chest pain, unspecified (2) Diabetes Priority: Secondary Status: Chronic Comments: A1c is 5.8 in October. Continue diabetic diet and medications at home. 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 Echo August 2016 showed LVEF 30% with mildly delayed dilated left ventricle, severe global systolic dysfunction, atypical septal motion consistent with paced rhythm, grossly mildly dilated right ventricle with normal appearing function, indeterminate diastolic dysfunction. There is no evidence of pulmonary hypertensionsignificant valvular dysfunction. Patient appears to be mildly in fluid overload. Chest + 1 nonpitting edema to bilateral lower extremities, she said this is normal for her. She has no abdominal distention or edema. Lungs are diminished today with faint expiratory wheeze heard in left posterior base. She will continue her home dose of Lasix, fluid and sodium restricted diet, daily weights. Continue aspirin, statin, beta abdirashid, Imdur. Qualifiers: Congestive heart failure chronicity: acute Qualified Code(s): I50.41 - Acute combined systolic (congestive) and diastolic (congestive) heart failure (4) Chronic interstitial lung disease Priority: Secondary Status: Chronic Comments: Continue 4 L of oxygen at home. Nebulizer treatments as necessary. (5) GERD (gastroesophageal reflux disease) Priority: Secondary Status: Chronic Comments: Chronic. Continue home medication. Qualifiers: Esophagitis presence: without esophagitis Qualified Code(s): K21.9 - Gastro -esophageal reflux disease without esophagitis (6) Urinary incontinence Priority: Secondary Status: Chronic Comments: A she reports urinary incontinence and recent difficulty starting urine flow. She was admitted with leukocytosis, white count was 15 on arrival. Decreasing today. She denies urinary symptoms, flank pain, abdominal pain, fever, chills, dysuria, or frequency. She does report increased fatigue over the last 2 weeks. There is no CVA tenderness or abdominal pain with palpation. Urine had trace of leukocyte esterase with no bacteria. I am his stated previously and I documented that urine culture was pending, it is not, nor was it ordered. Patient will continue Levaquin by mouth at home. Qualifiers: Urinary Incontinence type: stress incontinence Qualified Code(s): N39.3 - Stress incontinence (female) (male) (7) Elevated troponin Priority: Secondary Status: Acute Comments: Patient presents with flat and adynamic troponin elevation in the setting of CHF and stage III chronic renal failure, most likely due to demand ischemia. Patient denies any chest pain and states that she feels significantly better today and wants to go home. She will continue her home medications as stated above. (8) Acute on chronic kidney failure Priority: Secondary Status: Chronic Comments: Patient presents with elevated BUN and creatinine, almost at patient's baseline. Patient follows with nephrology. Avoid nephrotoxins and NSAIDs at home. Fluid restriction diet low-sodium diet. Qualifiers: Acute renal failure type: unspecified Chronic kidney disease stage: stage 3 (moderate) Qualified Code(s): N17.9 - Acute kidney failure, unspecified; N18.3 - Chronic kidney disease, stage 3 (moderate) - Discharge Medications Prescriptions: Isosorbide MONOnitrate (24 HR) [Imdur] 30 mg PO DAILY #30 tab.er.24h levoFLOXacin [Levaquin] 500 mg PO DAILY #5 tablet Home Medications: Aspirin Enteric Coated [Aspirin EC] 81 mg PO QPM #0 03/25/15 [History] Carvedilol 12.5 mg PO BID #0 03/25/15 [History] Furosemide [Lasix] 60 mg PO DAILY #0 03/25/15 [History] Glimepiride [Amaryl] 2 mg PO QAM #0 03/25/15 [History] Nitroglycerin [Nitrostat] 0.4 mg SL Q5M PRN #0 03/25/15 [History] Omeprazole [PriLOSEC] 20 mg PO QAM #0 03/25/15 [History] Sennosides [Senna] 8.6 mg PO DAILY PRN #0 03/25/15 [History] Mirtazapine 30 mg PO HS 02/19/16 [History] Oxygen 4 l NS AD 02/19/16 [History] Potassium Chloride [Klor-Con Sprinkle] 10 meq PO HS 02/19/16 [History] Docusate [Colace] 100 mg PO BID capsule 02/22/16 [Rx] traMADol [Ultram] 50 mg PO Q8HR PRN #15 tablet 02/22/16 [Rx] Cyclobenzaprine HCl 5 mg PO HS 08/26/16 [History] Escitalopram [Lexapro] 10 mg PO QAM 08/26/16 [History] Folic Acid [FA-8] 0.8 mg PO DAILY 08/26/16 [History] Lisinopril [Zestril] 20 mg PO DAILY 08/26/16 [History] SitaGLIPtin [Januvia] 100 mg PO DAILY 08/26/16 [History] clonazePAM [Klonopin] 0.5 mg PO TID PRN 08/26/16 [History] Gabapentin [Neurontin] 100 mg PO TID #60 capsule 08/28/16 [Rx] Escitalopram Oxalate 5 mg PO QPM 01/17/17 [History] Magnesium Citrate [Citroma] 296 ml PO DAILY PRN 01/17/17 [History] Magnesium Oxide [Magnesium] 500 mg PO DAILY 01/17/17 [History] Isosorbide MONOnitrate (24 HR) [Imdur] 30 mg PO DAILY #30 tab.er.24h 01/19/17 [ Rx] levoFLOXacin [Levaquin] 500 mg PO DAILY #5 tablet 01/19/17 [Rx] Allergies/Adverse Reactions: Allergies Amoxicillin Allergy (Verified 01/17/17 17:21) Swelling of Lip/Tongue/Throat Sulfa (Sulfonamide Antibiotics) Allergy (Verified 01/17/17 17:21) Swelling of Lip/Tongue/Throat acetaminophen [From Percocet] Adverse Reaction (Verified 01/17/17 17:21) Nausea citalopram [From Celexa] Adverse Reaction (Verified 01/17/17 17:21) Dizziness codeine [From Tylenol-Codeine] Adverse Reaction (Verified 01/17/17 17:21) Nausea epinephrine Adverse Reaction (Verified 01/17/17 17:21) Headache Oxycodone [From Percocet] Adverse Reaction (Verified 01/17/17 17:21) Nausea Penicillins [PCN] Adverse Reaction (Verified 01/17/17 17:21) Itching Date of admission: 01/17/17 19:56 Primary care physician: PCP DAYA Discharging clinician: Jennifer Johnson Anticipated date of discharge: 01/19/17 - Patient Status Disposition: Home, Self-Care Condition: Good Functional capacity at discharge: independent ambulation Overall status at discharge: patient is progressing back to baseline - Discharge Instructions Follow Up With: DAYA,PCP [Primary Care Provider] - Additional Instructions: Please resume your home medications. Start your Imdur tomorrow morning. Follow up with your primary care provider in the next week or so for a follow up visit. Wear your oxygen at home and stay out of the heat of the day. Make sure that you are adhering to a low sodium, 2L fluid restriction diet daily Return to the ER as needed for any new problems or if you become more SOB or if you have any concerns. Hospital course: Ms. Griffin is a 76 year old female with past history of diabetes, hypertension, interstitial lung disease, ALLYSON, chronic kidney disease, CHF, who presents to the emergency department with chest pain and yellow and white sputum production. She says and having right-sided chest pain that began while at rest yesterday. She says that she woke up with it yesterday morning. She describes it as heavy and without radiation. She says 2 days ago she had left chest pain with radiation to her left arm at rest. The quality remained the same. She tells the admit her that should the pain becomes worse when she is ambulating and walking around, but not at rest. Her pain was relieved by sublingual nitroglycerin in the emergency department She reports increased fatigue, shortness of breath for the last 2 weeks. She has had a productive cough with sputum that has been yellow, white, and now is carrasco. Sputum culture grew normal светлана. Gram stain was not appropriate. Yesterday patient was dyspneic while speaking. Today she appears much better and speaks easily in full sentences. He has been chest pain-free. She has been started on Imdur 30 mg by mouth daily. Patient has systolic and diastolic heart failure with an ejection fraction of 30 % and global left ventricular hypokinesis. Her troponins were elevated 0.06. This, in the setting of chronic kidney disease, CHF, hypertension. Patient will continue her normal home medications, including her antidiabetic medications are Lasix. We will encourage her to continue fluid and sodium restrictions and daily weights. Patient also reports urinary incontinence over the last few days. She had leukocytosis, white count was 15. She has been getting Levaquin 750 mg IV every 48 hours per renal dosing protocol. I will send her home on Levaquin 500 mg by mouth for 5 days. There is a urine culture ordered. Urine had trace of leukocyte esterase and no bacteria. Renal function is pretty much at patient's baseline. She knows to avoid nephrotoxins. She is having renally dosed Levaquin. She will follow up with primary care and nephrology. Patient's labs and vital signs are within normal limits or at baseline for patient. I have recommended that she follow up with primary care in 7-10 days. Patient will continue her oxygen and her rest for home medications. I provided her prescriptions for Levaquin 500 mg and Imdur 30 mg. Patient is anxious to go home. She is ready for discharge. - Time Spent with Patient Total time spent providing and/or coordinating discharge services: Less than 30 minutes - Constitutional Vitals: Temp Pulse Resp BP Pulse Ox 98.2 F 78 15 127/89 96 01/19/17 15:20 01/19/17 15:20 01/19/17 15:20 01/19/17 15:20 01/19/17 15:20 General appearance: Present: cooperative, mild distress, pleasant, no acute distress, answers questions appropriately - Head Head exam: Present: normal inspection - Eye Eye exam: Present: normal appearance, conjuntiva pink - ENT ENT exam: Present: mucous membranes moist, normal exam, normal external ear exam - Neck Neck exam general surgery: Present: normal inspection. Absent: lymphadenopathy , tenderness - Respiratory Respiratory exam: Present: decreased breath sounds, wheezes. Absent: chest wall tenderness, rales, respiratory distress, rhonchi, stridor - Cardiovascular Cardiovascular exam: Present: RRR, +S1, +S2. Absent: clicks, diastolic murmur, gallop, systolic murmur - GI/Abdominal GI/Abdominal exam: Present: distended, normal bowel sounds, soft. Absent: hepatomegaly, tenderness - Extremities Exam Extremities exam: Present: pedal edema, warm, radial pulses palpable and symetrical. Absent: tenderness - Neurological Exam Neurological exam: Present: alert, oriented X3, no focal deficits. Absent: pronater drift, facial droop, speech deficit - Skin Skin exam: Present: dry, normal color, warm. Absent: rash
--- NOTE | 2017-01-20 09:43 | Electrocardiograph Report ---
[place] [id number] Test Date: 2017-01-17 Pat Name: Natacha Griffin Department: 104 Room: 3B12 Gender: F Crew Scheduler: OLAMIDE : 1940 Requested By: Shahram Batista Order Number: [id number] Reading MD: Keegan Luz MD Measurements Intervals [place] Rate: 77 P: 55 [place]: 140 QRS: 118 QRSD: 171 T: -58 QT: 432 QTc: 464 Interpretive Statements ELECTRONIC VENTRICULAR PACEMAKER ABNORMAL RHYTHM ECG Electronically Signed On 01-20-2017 9:42:03 EDT by Keegan Luz MD
== END 2017-01-19 18:19 | disposition home health service (06) ==
LOC: EMEROO 17:18 → 3BNU 17:18
PROVIDERS: ADMIT Family Medicine; ATTEND Registered Nurse

== ENCOUNTER 2017-02-10 04:59 | Inpatient (IN) ==
[2017-02-10] MEDS ORDERED: methylPREDNISolone 125 MG/2 ML VIAL IVP ONE (05:12)
[2017-02-10] MEDS ORDERED: Ipratropium/Albuterol Neb 3 ML IH ONE (05:12)
--- NOTE | 2017-02-10 05:15 | Emergency Department Note ---
Disposition Clinical Impression: Acute on chronic renal insufficiency Acute exacerbation of CHF (congestive heart failure) Qualifiers: Congestive heart failure type: combined Qualified Code(s): I50.43 - Acute on chronic combined systolic (congestive) and diastolic (congestive) heart failure Acute and chronic respiratory failure Qualifiers: Respiratory failure complication: hypoxia Qualified Code(s): J96.21 - Acute and chronic respiratory failure with hypoxia Disposition: Admitted As Inpatient Condition: Fair Referrals: NONE,PCP [Non-Partnered Physician] - Forms: ED Satisfaction Letter Time of Disposition: 06:16 SOB HPI - General Chief Complaint: ED Shortness of Breath/Dyspnea Stated Complaint: LAVINIA Time Seen by Provider: 02/10/17 05:05 Source: patient, EMS Limitations: no limitations Nursing Notes Reviewed: Yes Vital Signs Reviewed: Yes - History of Present Illness 76-year-old female history of HTN, HLD, COPD, CAD, CM, interstitial lung disease , 4 L with O2 Oxymizer at home, she was having trouble breathing, short of breath and EMS arrived and found that her Oxymizer was plugged and backwards. Her sat was in the 70% range, and she was having trouble breathing, she also had moderate chest pain, they stated that her lips were turning blue. She states her chest pains now 1 out of 10, achy diffuse worse with deep breaths. 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 Denies: cough, wheezing, sputum production, orthopnea, lower extremity pain Treatment prior to arrival: oxygen - Related Data Home Medications Medication Instructions Recorded Confirmed Aspirin Enteric Coated [Aspirin EC] 81 mg PO QPM #0 03/25/15 01/17/17 Carvedilol 12.5 mg PO BID #0 03/25/15 01/17/17 Furosemide [Lasix] 60 mg PO DAILY #0 03/25/15 01/17/17 Glimepiride [Amaryl] 2 mg PO QAM #0 03/25/15 01/17/17 Nitroglycerin [Nitrostat] 0.4 mg SL Q5M PRN #0 03/25/15 01/17/17 Omeprazole [PriLOSEC] 20 mg PO QAM #0 03/25/15 01/17/17 Sennosides [Senna] 8.6 mg PO DAILY PRN #0 03/25/15 01/17/17 Mirtazapine 30 mg PO HS 02/19/16 01/17/17 Oxygen 4 l NS AD 02/19/16 01/17/17 Potassium Chloride [Klor-Con 10 meq PO HS 02/19/16 01/17/17 Sprinkle] Cyclobenzaprine HCl 5 mg PO HS 08/26/16 01/17/17 Escitalopram [Lexapro] 10 mg PO QAM 08/26/16 01/17/17 Folic Acid [FA-8] 0.8 mg PO DAILY 08/26/16 01/17/17 Lisinopril [Zestril] 20 mg PO DAILY 08/26/16 01/17/17 SitaGLIPtin [Januvia] 100 mg PO DAILY 08/26/16 01/17/17 clonazePAM [Klonopin] 0.5 mg PO TID PRN 08/26/16 01/17/17 Escitalopram Oxalate 5 mg PO QPM 01/17/17 01/17/17 Magnesium Citrate [Citroma] 296 ml PO DAILY PRN 01/17/17 01/17/17 Magnesium Oxide [Magnesium] 500 mg PO DAILY 01/17/17 01/17/17 Previous Rx's Medication Instructions Recorded Docusate [Colace] 100 mg PO BID capsule 02/22/16 traMADol [Ultram] 50 mg PO Q8HR PRN #15 tablet 02/22/16 Gabapentin [Neurontin] 100 mg PO TID #60 capsule 08/28/16 Isosorbide MONOnitrate (24 HR) 30 mg PO DAILY #30 tab.er.24h 01/19/17 [Imdur] levoFLOXacin [Levaquin] 500 mg PO DAILY #5 tablet 01/19/17 Allergies Allergy/AdvReac Type Severity Reaction Status Date / Time Amoxicillin Allergy Swelling Verified 01/17/17 17:21 of Lip/Tongue/Throat Sulfa (Sulfonamide Allergy Swelling Verified 01/17/17 17:21 Antibiotics) of Lip/Tongue/Throat acetaminophen [From Percocet] AdvReac Nausea Verified 01/17/17 17:21 citalopram [From Celexa] AdvReac Dizziness Verified 01/17/17 17:21 codeine AdvReac Nausea Verified 01/17/17 17:21 [From Tylenol-Codeine] epinephrine AdvReac Headache Verified 01/17/17 17:21 Oxycodone [From Percocet] AdvReac Nausea Verified 01/17/17 17:21 Penicillins [PCN] AdvReac Itching Verified 01/17/17 17:21 All systems ED: reviewed and negative except as stated. Review of Systems: As Per HPI Constitutional: Denies: fever, chills, weakness Cardiovascular: Reports: as per HPI, chest pain Respiratory: Reports: as per HPI, cough, dyspnea. Denies: wheezes, hemoptysis Gastrointestinal: Denies: abdominal pain, nausea, vomiting Genitourinary: Denies: urgency Musculoskeletal: Denies: back pain, neck pain Integumentary: Denies: rash Endocrine: Denies: fatigue Past Medical History - Past Medical History Attestation: Yes The following information was validated with the patient. Medical history: Reports: arthritis, cancer, cardiomyopathy, CHF, COPD, coronary artery disease, diabetes, GERD, hyperlipidemia, hypertension, malignancy, osteoporosis, renal disease, other Surgical history: Reports: cancer surgery (Left breast lumpectomy), cataract ( Bilateral cataract surgery with lens implants), hip replacement (Right hip replacement), orthopedic, other, pacemaker/AICD, other Psychiatric history: Reports: anxiety, depression CREW CLERK history: Reports: no CREW CLERK history - Social History Smoking Status: Former smoker Smokeless Tobacco Status: No Alcohol use: Reports: none Drug use: Reports: none Physical Exam Constitutional: elderly female sat 85% on 4L Eyes: PERRLA, sclera anicteric Neck: normal inspection, neck is supple Resp: diminished breath sounds coarse bilaterally at bases CV: RRR, no m/g/r GI: normal inspection, soft, no guarding or rigidity Back: normal inspection, no tenderness to palpation Neuro: A&O3, CNII-XII grossly intact, OWENS MSK: no gross deformities, normal ROM UE and LE Skin: on limited exam, skin intact with no rashes or lesions - General Limitations: no limitations General appearance: alert Course Course Narrative: 76-year-old female with shortness of breath, possibly exacerbated by being hypoxic this morning due to oxygen tubing issues, but she has been working for about a day worsening shortness of breath has been on oxygen since the . DNR CC code status. - Reevaluation(s) Reevaluation #1: I spoke with Dr. Pereyra the hospitalist, and the patient and her were at bedside, they agree with admission, okay with antibiotics at this time, and BiPAP if needed. Given that the patient is still dyspneic and working hard to breathe, even though her VBG showed a well compensated respiratory acidosis metabolic compensation. She slight elevation in her white count, this chest x- ray shows infiltrate versus edema, favor CHF at this time we will cover for pneumonia with Levaquin given amoxicillin allergy, diuresis with Lasix, BiPAP as the patient is on positive pressure night hopefully this will help with her dyspnea and tachypnea. Admitted to hospitalist in fair to serious condition. BNP 3300 JORY 1.7 worse than baseline labs Time: 06:19 Vital Signs Temperature 98.2 F 02/10/17 05:03 Pulse Rate 80 02/10/17 05:03 Respiratory Rate 24 02/10/17 05:03 Blood Pressure 148/112 02/10/17 05:03 O2 Sat by Pulse Oximetry 86 02/10/17 05:03 Temperature 98.2 F 02/10/17 05:03 Pulse Rate 87 02/10/17 05:53 Respiratory Rate 26 02/10/17 05:53 Blood Pressure 148/112 02/10/17 05:03 O2 Sat by Pulse Oximetry 97 02/10/17 05:53 Oxygen Delivery Oxygen Delivery Aerosol Mask Shortness of Breath/Dyspnea - Differential Diagnosis Likely: acute exacerbation of chronic obstructive airways disease - Medical Records Medical records reviewed: Yes I reviewed the patient's medical records. - Lab Data Lab results reviewed: Yes I reviewed the patient's lab results. Result diagrams: 02/10/17 05:16 02/10/17 05:16 Lab Results 02/10/17 02/10/17 02/10/17 Range/Units 05:16 05:16 05:16 WBC 13.8 H (4.3-11.1) K/mcL RBC 4.31 (3.82-4.97) M/mcL Hgb 13.1 (11.5-15.4) g/dL Hct 41.8 (35.3-44.9) % MCV 97.0 (83.0-100.0) fL MCH 30.4 (28.0-33.3) pg MCHC 31.3 L (31.6-35.5) g/dL RDW 15.2 H (11.5-14.5) % Plt Count 188 (140-400) K/mcL MPV 10.9 (9.4-12.4) fL Immature Gran % 0.5 (0-4) % Seg Neutrophils % 76.3 % Lymphocytes % 12.9 % Monocytes % 7.9 % Eosinophils % 2.0 % Basophils % 0.4 % Neutrophils # 10.5 H (1.6-8.9) K/mcL Lymphocytes # 1.8 (0.6-4.6) K/mcL Monocytes # 1.1 (0.0-1.3) K/mcL Eosinophils # 0.3 (0.0-0.6) K/mcL Basophils # 0.1 (0.0-0.2) K/mcL VBG pH (7.32-7.42) pH Units VBG pCO2 (41-51) mmHg VBG pO2 (25-40) mmHg VBG HCO3 (21-27) mEq/L Sodium 135 L (136-145) mEq/L Potassium 5.0 H (3.5-4.5) mEq/L Chloride 98 (98-109) mEq/L Carbon Dioxide 28 (19-29) mEq/L BUN 33 H (7-20) mg/dL Creatinine 1.76 H (0.57-1.11) mg/dL Est GFR ( Amer) 34 L (> 60) Est GFR (Non-Af Amer) 28 L (> 60) BUN/Creatinine Ratio 19 (6-26) Glucose 239 H (70-99) mg/dL Calculated Osmolality 295 (280-300) Lactic Acid (0.5-2.2) mmol/L Calcium 10.0 (8.6-10.8) mg/dL Troponin I 0.02 (0-0.03) ng/mL B-Natriuretic Peptide (0-100) pg/mL 02/10/17 02/10/17 02/10/17 Range/Units 05:16 05:40 05:40 WBC (4.3-11.1) K/mcL RBC (3.82-4.97) M/mcL Hgb (11.5-15.4) g/dL Hct (35.3-44.9) % MCV (83.0-100.0) fL MCH (28.0-33.3) pg MCHC (31.6-35.5) g/dL RDW (11.5-14.5) % Plt Count (140-400) K/mcL MPV (9.4-12.4) fL Immature Gran % (0-4) % Seg Neutrophils % % Lymphocytes % % Monocytes % % Eosinophils % % Basophils % % Neutrophils # (1.6-8.9) K/mcL Lymphocytes # (0.6-4.6) K/mcL Monocytes # (0.0-1.3) K/mcL Eosinophils # (0.0-0.6) K/mcL Basophils # (0.0-0.2) K/mcL VBG pH 7.39 (7.32-7.42) pH Units VBG pCO2 57 H (41-51) mmHg VBG pO2 20 L (25-40) mmHg VBG HCO3 34.5 H (21-27) mEq/L Sodium (136-145) mEq/L Potassium (3.5-4.5) mEq/L Chloride (98-109) mEq/L Carbon Dioxide (19-29) mEq/L BUN (7-20) mg/dL Creatinine (0.57-1.11) mg/dL Est GFR ( Amer) (> 60) Est GFR (Non-Af Amer) (> 60) BUN/Creatinine Ratio (6-26) Glucose (70-99) mg/dL Calculated Osmolality (280-300) Lactic Acid 1.5 (0.5-2.2) mmol/L Calcium (8.6-10.8) mg/dL Troponin I (0-0.03) ng/mL B-Natriuretic Peptide 3393 H (0-100) pg/mL - Radiology Data Radiology results reviewed: Yes I reviewed the patient's radiology results. Chest X-Ray 02/10/17 05:12 IMPRESSION: Worsening patchy opacities the lung bases may reflect pulmonary edema. Pneumonia not excluded. Clinical correlation recommended. D/ / Rafal Andrea MD / Rafal Andrea MD Interpreting Provider: Rafal Andrea MD - EKG Data EKG attestation: Yes I reviewed and interpreted this EKG. EKG shows normal: Reports: sinus rhythm (81 bpm DE 142 QRS 164 QTc 470 electronic ventricular pacemaker unchanged from previous echo EKG 01/17/2017)
[2017-02-10 05:27] LABS: Basophils # 0.1 K/mcL (0.0-0.2); Basophils % 0.4 %; Eosinophils # 0.3 K/mcL (0.0-0.6); Hematocrit 41.8 % (35.3-44.9); Hemoglobin 13.1 g/dL (11.5-15.4); Immature Granulocytes % 0.5 % (0-4); Lymphocytes # 1.8 K/mcL (0.6-4.6); Lymphocytes % 12.9 %; Mean Corpuscular HGB Conc 31.3 g/dL (31.6-35.5); Mean Corpuscular Hemoglobin 30.4 pg (28.0-33.3); Mean Platelet Volume 10.9 fL (9.4-12.4); Monocytes # 1.1 K/mcL (0.0-1.3); Monocytes % 7.9 %; Neutrophils # 10.5 K/mcL (1.6-8.9); Platelet Count 188 K/mcL (140-400); Red Blood Count 4.31 M/mcL (3.82-4.97); Red Cell Distribution Width 15.2 % (11.5-14.5); Segmented Neutrophils % 76.3 %
--- NOTE | 2017-02-10 05:37 | Emergency Department Note ---
START Narrative - START START: I examined this patient and my medical decision-making was reviewed with the Resident Physician. I agree with the documented findings, disposition and treatment plan as described except to the extent set forth below. pt with known copd history and interstitial lung disease. had been feeling sob prior to bed and then forgot to superintendent warehouse her O2 on her cpap machine. she was without O2 for hours at home. she presents to ER for this sob. will eval in ER for copd/resp difficulty.
[2017-02-10 05:48] LABS: VBG HCO3 34.5 mEq/L (21-27); VBG PH 7.39 pH Units (7.32-7.42)
[2017-02-10] MEDS ORDERED: Furosemide 40 MG/4 ML VIAL IVP ONE (06:06)
[2017-02-10] MEDS ORDERED: Levofloxacin 750 MG/150 ML 750 MG/150 ML BAG IVPB ONE (06:07)
[2017-02-10 06:49] LABS: Bilirubin,Urine Small (Negative); Blood,Urine Negative (Negative); Clarity,Urine Clear (Clear); Color,Urine Yellow (Yellow); Glucose,Urine (UA) Normal (Normal); Ketones,Urine Negative (Negative); Leukocyte Esterase,Urine Negative (Negative); Nitrite,Urine Negative (Negative); Protein,Urine Negative (Neg-Trace); Specific Gravity,Urine 1.025 (1.010-1.025); Urobilinogen,Urine Normal (Normal)
[2017-02-10] MEDS ORDERED: Acetaminophen 325 MG TABLET PO PRN (07:26)
[2017-02-10] MEDS ORDERED: Ondansetron 4 MG/2 ML VIAL IVP PRN (07:26)
[2017-02-10] MEDS ORDERED: Ondansetron ODT 4 MG TAB.RAPDIS SL PRN (07:26)
[2017-02-10] MEDS ORDERED: *HR* Morphine 2 MG/ML SYRINGE IVP PRN (07:26)
[2017-02-10] MEDS ORDERED: *HR* HYDROcodone/Acet 5/325 mg TABLET PO PRN (07:26)
[2017-02-10] MEDS ORDERED: Naloxone 0.4 MG/ML INJ IVP PRN (07:26)
[2017-02-10] MEDS ORDERED: Ipratropium/Albuterol Neb 3 ML IH SCH (08:00)
--- NOTE | 2017-02-10 08:09 | Internal Med History&Physical ---
Date of Encounter: 02/10/17 Time of Encounter: 07:45 Assessment and Plan (1) Acute respiratory failure with hypoxia and hypercapnia Current visit: Yes Status: Acute Admit the pt into Tele Her current resp failure triggered by multiple factors - Pneumonia, Intersititial lung disease exacerbation, Pulmonary edema and CHF exacerbation Reviewed VBG - showing mild hypercapnea will cont BiPAP @ 15/8 as needed during day time and Continuous at QHS consulted Pulmonary for further eval (2) Pneumonia Current visit: Yes Status: Acute mostly bacterial PNA Will sent for sputum cx, Strep PNA and Legionella titers Started on empirical abx Levofloxacin Qualifiers: Laterality: bilateral Qualified Code(s): J18.9 - Pneumonia, unspecified organism (3) Pulmonary edema Current visit: Yes Status: Acute Due to both PNA and CHF Will cont IV Lasix 40 BID Matthews cath + Strict I & O Qualifiers: Qualified Code(s): J81.0 - Acute pulmonary edema (4) Interstitial lung disease Current visit: No Status: Acute in Exacerbation now will start her on high dose IV steroids Solumedrol 60,g Q6hr Duoneb Q6hr BiPAP PRN during day time and continuous QHS for next 1-2 days (5) Chest pain Current visit: No Status: Acute Reviewed EKG - no acute changes will cont trend on Troponin Cont ASA< COreg and Statin Card consulted Qualifiers: Chest pain type: unspecified Qualified Code(s): R07.9 - Chest pain, unspecified (6) Combined systolic and diastolic congestive heart failure Current visit: No Status: Chronic Reviewed 2 D Echo from aug 2016 with worsenign symptoms and chest pain will repeat another 2 D Echo also started her on IV Lasix 40mg BID Resumed other home meds , ASA, Coreg, Statin Qualifiers: Congestive heart failure chronicity: acute Qualified Code(s): I50.41 - Acute combined systolic (congestive) and diastolic (congestive) heart failure (7) Chronic respiratory failure with hypoxia Current visit: No Status: Chronic (8) CKD (chronic kidney disease) stage 3, GFR 30-59 ml/min Current visit: No Status: Chronic Stable..cont close monitoring avoid nephro toxic meds (9) History of hypertension Current visit: No Status: Acute stable BP resumed home meds (10) DVT prophylaxis Current visit: No Status: Acute Placed on SQ Heparin (11) Limited code status Current visit: Yes Status: Acute Pt and family requested for DNR - CC only I spent more than 45 minutes on this pt's critical care. Internal Medicine - H&P: HPI Chief complaint: Shortness of breath and Chest pain Admitted From: Emergency Dept Plans for Post Hospital Care: Home History of present illness: Ms. Griffin is a 76 year old female history of HTN, HLD, COPD, CAD, cardiomyopathy, interstitial lung disease, chronic hypoxic respiratory failure with 4 L O2 Oxymizer at home, was brought to the ER by EMS with severe SOB and GUEVARA. When EMS arrived they found that her Oxymizer was plugged and backwards. Her sat was in the 70% range, and she was having trouble breathing, she also had moderate chest pain, they stated that her lips were turning blue. Patient also mentioned that last 4 to 5 days her shortness of breath seems to be progressively worsening. She also complained of cough with yellowish expectoration. Patient denied off any sick contacts at home. She also mentioned that from last couple of days patient has been having intermittent chest pain located at the sub sternal region non-radiating, 4/10 in severity. Past Med Surg Social Fam HX - Past Medical History Medical history: arthritis, cancer, cardiomyopathy, CHF, COPD, coronary artery disease, diabetes, GERD, hyperlipidemia, hypertension, malignancy, osteoporosis , renal disease, other Psychiatric history: anxiety, depression - Past Surgical History Surgical History: cancer surgery (Left breast lumpectomy), cataract (Bilateral cataract surgery with lens implants), hip replacement (Right hip replacement), orthopedic, other, pacemaker/AICD, other - Social History Smoking Status: Former smoker Smokeless Tobacco Status: No Alcohol use: none Drug use: none - Family History Father Living Status: Hx Family Cardiac Disorders: Yes Sister Living Status: Hx Family Neurologic Disorders: Yes (Alzheimer's) Mother Adopted: No Family Member Ethnicity: Non- Living Status: Hx Family Cardiac Disorders: Yes Hx Family Respiratory Disorders: No Hx Family Cancer: No Hx Family GI Disorders: No Hx Family Endocrine Disorder: No Hx Family Neuromuscular Disorders: No Hx Family Neurologic Disorders: No Hx Family HEENT Disorders: No Hx Family Autoimmune Disorders: No Internal Medicine - H&P: Meds Aspirin Enteric Coated [Aspirin EC] 81 mg PO QPM #0 03/25/15 [History] Carvedilol 12.5 mg PO BID #0 03/25/15 [History] Furosemide [Lasix] 60 mg PO DAILY #0 03/25/15 [History] Glimepiride [Amaryl] 2 mg PO QAM #0 03/25/15 [History] Nitroglycerin [Nitrostat] 0.4 mg SL Q5M PRN #0 03/25/15 [History] Omeprazole [PriLOSEC] 20 mg PO QAM #0 03/25/15 [History] Sennosides [Senna] 8.6 mg PO DAILY PRN #0 03/25/15 [History] Mirtazapine 30 mg PO HS 02/19/16 [History] Oxygen 4 l NS AD 02/19/16 [History] Potassium Chloride [Klor-Con Sprinkle] 10 meq PO HS 02/19/16 [History] Docusate [Colace] 100 mg PO BID capsule 02/22/16 [Rx] Cyclobenzaprine HCl 5 mg PO HS 08/26/16 [History] Escitalopram [Lexapro] 10 mg PO QAM 08/26/16 [History] Folic Acid [FA-8] 0.8 mg PO DAILY 08/26/16 [History] Lisinopril [Zestril] 20 mg PO DAILY 08/26/16 [History] SitaGLIPtin [Januvia] 100 mg PO DAILY 08/26/16 [History] clonazePAM [Klonopin] 0.5 mg PO TID PRN 08/26/16 [History] Gabapentin [Neurontin] 100 mg PO TID #60 capsule 08/28/16 [Rx] Escitalopram Oxalate 5 mg PO QPM 01/17/17 [History] Magnesium Citrate [Citroma] 296 ml PO DAILY PRN 01/17/17 [History] Magnesium Oxide [Magnesium] 500 mg PO DAILY 01/17/17 [History] Isosorbide MONOnitrate (24 HR) [Imdur] 30 mg PO DAILY #30 tab.er.24h 01/19/17 [ Rx] Allergies Amoxicillin Allergy (Verified 01/17/17 17:21) Swelling of Lip/Tongue/Throat Sulfa (Sulfonamide Antibiotics) Allergy (Verified 01/17/17 17:21) Swelling of Lip/Tongue/Throat acetaminophen [From Percocet] Adverse Reaction (Verified 01/17/17 17:21) Nausea citalopram [From Celexa] Adverse Reaction (Verified 01/17/17 17:21) Dizziness codeine [From Tylenol-Codeine] Adverse Reaction (Verified 01/17/17 17:21) Nausea epinephrine Adverse Reaction (Verified 01/17/17 17:21) Headache Oxycodone [From Percocet] Adverse Reaction (Verified 01/17/17 17:21) Nausea Penicillins [PCN] Adverse Reaction (Verified 01/17/17 17:21) Itching All Systems PM: A 10-system review of systems was performed and is negative for pertinent findings except as documented above in the HPI. Review of systems: All the systems are reviewed everything is benign except the systems and symptoms I mentioned in the history of present illness - Constitutional Vitals: Temp Pulse Resp BP Pulse Ox 98.2 F 85 17 147/102 97 02/10/17 05:03 02/10/17 07:12 02/10/17 07:12 02/10/17 07:12 02/10/17 07:12 General appearance: Present: A&O X 3, severe distress - Head Head exam: Present: atraumatic - Neck Neck exam general surgery: Present: supple. Absent: lymphadenopathy, tenderness , thyromegaly - Respiratory Respiratory exam: Present: decreased breath sounds, rales, respiratory distress , wheezes (diffuse), tachypnea. Absent: rhonchi - Cardiovascular Cardiovascular exam: Present: gallop, RRR, +S1, +S2 - GI/Abdominal GI/Abdominal exam: Present: normal bowel sounds, soft. Absent: rebound, rigid, tenderness - Extremities Exam Extremities exam: Absent: calf tenderness, pedal edema, tenderness - Neurological Exam Neurological exam: Present: alert, oriented X3 - Psychiatric Psychiatric exam: Present: normal affect, normal mood Internal Med - H&P Results - Labs CBC & Chem 7: 02/10/17 05:16 02/10/17 05:16 Labs: Urine 02/10/17 Range/Units 06:30 Urine Color Yellow (Yellow) Urine Clarity Clear (Clear) Urine pH 5.0 (5.0-8.0) pH Units Ur Specific [place] 1.025 (1.010-1.025) Urine Protein Negative (Neg-Trace) mg/dL Urine Glucose (UA) Normal (Normal) mg/dL - ABG Interpretation Interpretation: ABG interpreted by me (reviewed VBG.. Mild hypercapnea) - Diagnostic Studies Chest x-ray Status: image reviewed by me (RML amd LLL infiltrates, b/l vascular congestion , pulmonary edema)
[2017-02-10] MEDS ORDERED: clonazePAM 0.5 MG TABLET PO PRN (08:33)
[2017-02-10] MEDS ORDERED: Nitroglycerin 0.4 MG TAB.SUBL SL PRN (08:33)
[2017-02-10] MEDS ORDERED: Dextrose Gel 15 GM PO PRN ×2 (08:40)
[2017-02-10] MEDS ORDERED: *HR* Dextrose 50 % in Water (Syg) 50 ML SYRINGE IVP PRN (08:40)
[2017-02-10] MEDS ORDERED: D5% in Water 1,000 ML IVC PRN (08:40)
[2017-02-10] MEDS ORDERED: Levofloxacin 500 MG/100 ML 500 MG/100 ML BAG IVPB SCH (09:00)
--- NOTE | 2017-02-10 09:40 | Pulmonology Consult Note ---
Date of Encounter: 02/10/17 Time of Encounter: 08:15 Assessment and Plan (1) Acute CHF Current Visit: No Status: Acute Patient with acute hypoxic respiratory failure this is primarily from her cardiomyopathy with chest x-ray and with evidence of pulmonary edema and also elevated BNP. I do not see any data to support patient with COPD or interstitial lung disease. I do not feel patient has COPD exacerbation based on the presentation, however it is reasonable to cover her with antibiotics and systemic steroid and this time and hopefully in next 24 hours this can be stopped. Continue diuresis. Patient is feeling better on noninvasive ventilation with BiPAP and that will help with her CHF. We will add bronchodilators empirically at this time. Qualifiers: Congestive heart failure type: combined Qualified Code(s): I50.41 - Acute combined systolic (congestive) and diastolic (congestive) heart failure (2) Acute respiratory failure with hypoxia and hypercapnia Current Visit: Yes Status: Acute As indicated above. Thank you very much for the consultation we will continue follow-up. History of Present Illness Consult date: 02/10/17 Requesting physician: Brittany Walls Reason for consult: dyspnea, COPD Chief complaint: Shortness of breath History of present illness: This is a pleasant 76-year-old female with multiple medical problems maintaining cardiomyopathy and also with interstitial lung disease, however not sure from where she has that diagnosis since they do not have any images were pulmonary function test to support that. Patient also has chronic hypoxic respiratory failure on home oxygen at 4 L. Patient stated her breathing has worsened but denies any wheezing or significant productive cough and she has also chest pain. She feels her breathing is worsened due to her underlying cardiac disease. Patient denies any fever or chills. The patient feels BiPAP treatment is helping. Past Med Surg Social Fam HX - Past Medical History Medical history: arthritis, cancer, cardiomyopathy, CHF, COPD, coronary artery disease, diabetes, GERD, hyperlipidemia, hypertension, malignancy, osteoporosis , renal disease, other Psychiatric history: anxiety, depression - Past Surgical History Surgical History: cancer surgery (Left breast lumpectomy), cataract (Bilateral cataract surgery with lens implants), hip replacement (Right hip replacement), orthopedic, other, pacemaker/AICD, other - Social History Smoking Status: Former smoker Smokeless Tobacco Status: No Alcohol use: none Drug use: none - Family History Father Living Status: Hx Family Cardiac Disorders: Yes Sister Living Status: Hx Family Neurologic Disorders: Yes (Alzheimer's) Mother Adopted: No Family Member Ethnicity: Non- Living Status: Hx Family Cardiac Disorders: Yes Hx Family Respiratory Disorders: No Hx Family Cancer: No Hx Family GI Disorders: No Hx Family Endocrine Disorder: No Hx Family Neuromuscular Disorders: No Hx Family Neurologic Disorders: No Hx Family HEENT Disorders: No Hx Family Autoimmune Disorders: No Medications and Allergies Aspirin Enteric Coated [Aspirin EC] 81 mg PO QPM #0 03/25/15 [History] Carvedilol 12.5 mg PO BID #0 03/25/15 [History] Furosemide [Lasix] 60 mg PO DAILY #0 03/25/15 [History] Glimepiride [Amaryl] 2 mg PO QAM #0 03/25/15 [History] Nitroglycerin [Nitrostat] 0.4 mg SL Q5M PRN #0 03/25/15 [History] Omeprazole [PriLOSEC] 20 mg PO QAM #0 03/25/15 [History] Sennosides [Senna] 8.6 mg PO DAILY PRN #0 03/25/15 [History] Mirtazapine 30 mg PO HS 02/19/16 [History] Oxygen 4 l NS AD 02/19/16 [History] Potassium Chloride [Klor-Con Sprinkle] 10 meq PO HS 02/19/16 [History] Docusate [Colace] 100 mg PO BID capsule 02/22/16 [Rx] Cyclobenzaprine HCl 5 mg PO HS 08/26/16 [History] Escitalopram [Lexapro] 10 mg PO QAM 08/26/16 [History] Folic Acid [FA-8] 0.8 mg PO DAILY 08/26/16 [History] Lisinopril [Zestril] 20 mg PO DAILY 08/26/16 [History] SitaGLIPtin [Januvia] 100 mg PO DAILY 08/26/16 [History] clonazePAM [Klonopin] 0.5 mg PO TID PRN 08/26/16 [History] Gabapentin [Neurontin] 100 mg PO TID #60 capsule 08/28/16 [Rx] Escitalopram Oxalate 5 mg PO QPM 01/17/17 [History] Magnesium Citrate [Citroma] 296 ml PO DAILY PRN 01/17/17 [History] Magnesium Oxide [Magnesium] 500 mg PO DAILY 01/17/17 [History] Isosorbide MONOnitrate (24 HR) [Imdur] 30 mg PO DAILY #30 tab.er.24h 01/19/17 [ Rx] Allergies Amoxicillin Allergy (Verified 01/17/17 17:21) Swelling of Lip/Tongue/Throat Sulfa (Sulfonamide Antibiotics) Allergy (Verified 01/17/17 17:21) Swelling of Lip/Tongue/Throat acetaminophen [From Percocet] Adverse Reaction (Verified 01/17/17 17:21) Nausea citalopram [From Celexa] Adverse Reaction (Verified 01/17/17 17:21) Dizziness codeine [From Tylenol-Codeine] Adverse Reaction (Verified 01/17/17 17:21) Nausea epinephrine Adverse Reaction (Verified 01/17/17 17:21) Headache Oxycodone [From Percocet] Adverse Reaction (Verified 01/17/17 17:21) Nausea Penicillins [PCN] Adverse Reaction (Verified 01/17/17 17:21) Itching All Systems: A 10-system review of systems was performed and is negative for pertinent findings except as documented above in the HPI. Physical Examination Vital Signs: Please refer to the nursing documentation for the vital signs. Oxygen saturation is 92% on BiPAP General appearance: appears uncomfortable Eyes: nonicteric ENT: oropharynx dry Mallampati (class): 3 Neck: supple, no lymphadenopathy, JVD Effort: mildly labored Inspection: other (Obese) Auscultation: bilateral: rales (Mainly in the bases) Percussion: bilateral: not dull Cardiovascular: irregular rhythm Gastrointestinal: normoactive bowel sounds, non-distended Extremities: cyanosis, edema normal mental status anxious Ventilator Settings Ventilator Settings: Patient is on the BiPAP Results - Laboratory Findings CBC and BMP: 02/10/17 05:16 02/10/17 05:16 Abnormal lab findings: Abnormal lab results WBC 13.8 K/mcL (4.3-11.1) H 02/10/17 05:16 MCHC 31.3 g/dL (31.6-35.5) L 02/10/17 05:16 RDW 15.2 % (11.5-14.5) H 02/10/17 05:16 Neutrophils # 10.5 K/mcL (1.6-8.9) H 02/10/17 05:16 VBG pCO2 57 mmHg (41-51) H 02/10/17 05:40 VBG pO2 20 mmHg (25-40) L 02/10/17 05:40 VBG HCO3 34.5 mEq/L (21-27) H 02/10/17 05:40 Sodium 135 mEq/L (136-145) L 02/10/17 05:16 Potassium 5.0 mEq/L (3.5-4.5) H 02/10/17 05:16 BUN 33 mg/dL (7-20) H 02/10/17 05:16 Creatinine 1.76 mg/dL (0.57-1.11) H 02/10/17 05:16 Est GFR ( Amer) 34 (> 60) L 02/10/17 05:16 Est GFR (Non-Af Amer) 28 (> 60) L 02/10/17 05:16 Glucose 239 mg/dL (70-99) H 02/10/17 05:16 B-Natriuretic Peptide 3393 pg/mL (0-100) H 02/10/17 05:16 Urine Bilirubin Small (Negative) H 02/10/17 06:30 - Diagnostic Findings Chest x-ray: report reviewed, image reviewed Consult Discharge Plan - Plan Referrals: Wilmar Newman MD [Primary Care Provider] -
[2017-02-10] MEDS: Gabapentin 100 MG CAPSULE PO SCH ×3 (09:52→20:39)
[2017-02-10] MEDS: Furosemide 20 MG/2 ML VIAL IVP SCH ×2 (09:52→16:49)
[2017-02-10] MEDS: Lisinopril 20 MG TABLET PO SCH (09:52)
[2017-02-10] MEDS: Magnesium Oxide 400 MG TABLET PO SCH (09:52)
[2017-02-10] MEDS: Isosorbide MONOnitrate (24 HR) 30 MG TAB.ER.24H PO SCH (09:52)
[2017-02-10] MEDS: Folic Acid 1 MG TABLET PO SCH (09:52)
[2017-02-10] MEDS: Famotidine 20 MG TABLET PO SCH ×2 (09:52→20:38)
[2017-02-10] MEDS ORDERED: Perflutren Lipid Microsphere 1.3 ML in 0.9 % Sodium Chloride 8.7 ML IVP ONE (09:53)
[2017-02-10] MEDS: Ipratropium/Albuterol Neb 3 ML IH SCH ×3 (10:05→22:31)
--- NOTE | 2017-02-10 12:08 | Cardiology Consult Note ---
Date of Encounter: 02/10/17 Time of Encounter: 11:59 Assessment and Plan (1) Systolic CHF, acute Current Visit: No Status: Acute Based on her pleural effusion adn echo showing decrased LV function she is most likely in systolic CHF. She has had no changes to her medications however she is also diagnosed with pneumonia. The extra cardiac drive needed to support the pneumonia is what probably worsened her CHF with her history of non- ischemic cardiomyopathy. We recommend to continue diuresis with Lasix until most of the pleural fluid buildup has been alleviated. Also limit her iv and po intake of fluids. Treating the pneumonia with antibiotics will also help in her cardiac function to alleviate the CHF. Also continue using BiPap as needed for difficutly breathign due to her fluid overload. Will continue to monitor troponins as they have now normalized back to 0.00 from a reading of 0.02 in the ED that was probably slightly elevated due to ischemic demand from the pneumonia exacerbating her CHF. Has known Bi[facility] ICD [facility] and due to her Code status change to DNR [facility] she now has tachy therpies turned off. This was confirmed on her last check done (2) NICM (nonischemic cardiomyopathy) Current Visit: No Status: Chronic This is a chronic issue that is treated with Lasix to help with fluid overload, as well as lisinopril and coreg to help decrease preload. Continue her on these medications the symptoms from this will lessen once the pneumonia is treated with antibiotics. Continue current medication regimen. Discussion w patient/family: The assessment and plan as outlined above was discussed with the patient and/or family members who expressed understanding and agreement. All questions were answered. Thank you for involving us in the care of your patient. Please call with any questions. History of Present Illness Consult date: 02/10/17 Requesting physician: Brittany Walls Consult reason: Chest Pain, CHF Chief complaint: Dyspnea and Chestpain History of present illness: Mrs. Griffin is a 76 year old female who presented to the ED for dyspnea and chest pain and was diagnosed with a pneumonia and acute CHF exacerbation. She has documented history of dilated cardiomyopathy, hypertension, hyperlipidemia and no other cardiac history. She is newly seen by Dr. Poon. Her old senior planning manager recently retired so she newly got in with Dr. Poon. She currently doesn't have any chest pain at this time but does states that it comes and goes. She describes it as a chest pressure that does not radiate. She notes no nausea/vomiting. She last had it when she was in the ED but hasn' t had any since. She states she is just having a hard time breathing and she feels this is the worse CHF exacerbation she has ever had. She has never had a heart attack but has had a cardiac catheterization done in 1996 when she was diagnosed with dilated cardiomyopathy which showed no blockages just a decreased EF but she is unsure what her EF was at that point. She was recently started on a medication for angina but is unsure what it's called. She has a HX of COPD and is on nightly cpap. She is DNR [facility] Past Med Surg Social Fam HX - Past Medical History Medical history: arthritis, cancer, cardiomyopathy, CHF, COPD, coronary artery disease, diabetes, GERD, hyperlipidemia, hypertension, malignancy, osteoporosis , renal disease, other Psychiatric history: anxiety, depression - Past Surgical History Surgical History: cancer surgery (Left breast lumpectomy), cataract (Bilateral cataract surgery with lens implants), hip replacement (Right hip replacement), orthopedic, other, pacemaker/AICD, other - Social History Smoking Status: Former smoker Smokeless Tobacco Status: No Alcohol use: none Drug use: none - Family History Father Living Status: Hx Family Cardiac Disorders: Yes Sister Living Status: Hx Family Neurologic Disorders: Yes (Alzheimer's) Mother Adopted: No Family Member Ethnicity: Non- Living Status: Hx Family Cardiac Disorders: Yes Hx Family Respiratory Disorders: No Hx Family Cancer: No Hx Family GI Disorders: No Hx Family Endocrine Disorder: No Hx Family Neuromuscular Disorders: No Hx Family Neurologic Disorders: No Hx Family HEENT Disorders: No Hx Family Autoimmune Disorders: No Medications and Allergies Aspirin Enteric Coated [Aspirin EC] 81 mg PO QPM #0 03/25/15 [History] Carvedilol 12.5 mg PO BID #0 03/25/15 [History] Furosemide [Lasix] 60 mg PO DAILY #0 03/25/15 [History] Glimepiride [Amaryl] 2 mg PO QAM #0 03/25/15 [History] Nitroglycerin [Nitrostat] 0.4 mg SL Q5M PRN #0 03/25/15 [History] Omeprazole [PriLOSEC] 20 mg PO QAM #0 03/25/15 [History] Sennosides [Senna] 8.6 mg PO DAILY PRN #0 03/25/15 [History] Mirtazapine 30 mg PO HS 02/19/16 [History] Oxygen 4 l NS AD 02/19/16 [History] Potassium Chloride [Klor-Con Sprinkle] 10 meq PO HS 02/19/16 [History] Docusate [Colace] 100 mg PO BID capsule 02/22/16 [Rx] Cyclobenzaprine HCl 5 mg PO HS 08/26/16 [History] Escitalopram [Lexapro] 10 mg PO QAM 08/26/16 [History] Folic Acid [FA-8] 0.8 mg PO DAILY 08/26/16 [History] Lisinopril [Zestril] 20 mg PO DAILY 08/26/16 [History] SitaGLIPtin [Januvia] 100 mg PO DAILY 08/26/16 [History] clonazePAM [Klonopin] 0.5 mg PO TID PRN 08/26/16 [History] Gabapentin [Neurontin] 100 mg PO TID #60 capsule 08/28/16 [Rx] Escitalopram Oxalate 5 mg PO QPM 01/17/17 [History] Magnesium Citrate [Citroma] 296 ml PO DAILY PRN 01/17/17 [History] Magnesium Oxide [Magnesium] 500 mg PO DAILY 01/17/17 [History] Isosorbide MONOnitrate (24 HR) [Imdur] 30 mg PO DAILY #30 tab.er.24h 01/19/17 [ Rx] Allergies Amoxicillin Allergy (Verified 01/17/17 17:21) Swelling of Lip/Tongue/Throat Sulfa (Sulfonamide Antibiotics) Allergy (Verified 01/17/17 17:21) Swelling of Lip/Tongue/Throat acetaminophen [From Percocet] Adverse Reaction (Verified 01/17/17 17:21) Nausea citalopram [From Celexa] Adverse Reaction (Verified 01/17/17 17:21) Dizziness codeine [From Tylenol-Codeine] Adverse Reaction (Verified 01/17/17 17:21) Nausea epinephrine Adverse Reaction (Verified 01/17/17 17:21) Headache Oxycodone [From Percocet] Adverse Reaction (Verified 01/17/17 17:21) Nausea Penicillins [PCN] Adverse Reaction (Verified 01/17/17 17:21) Itching All Systems Review: A 10-system review of systems was performed and is negative for pertinent findings except as documented above in the HPI. - Constitutional Constitutional: fatigue, stops breathing during sleep, no chills, no daytime sleepiness, no fever(s), no frequent falls, no headache(s), no lethargy, no night sweats, no snoring, no weakness, no weight gain, no weight loss - EENT Eyes: no blurred vision Nose, mouth and throat: no mouth pain, no sore throat - Cardiovascular Cardiovascular: chest pain at rest (not currently having it but says it occurred when in ED), no chest pain with exertion, no claudication, no diaphoresis, no dyspnea at rest, no irregular heart rhythm, no radiating jaw, neck or arm pain, no leg edema, no lightheadedness, no palpitations, no rapid heart rate, no slow heart rate, no syncope - Respiratory Respiratory: no cough, no dyspnea, no hemoptysis, no wheezing - Gastrointestinal Gastrointestinal: no abdominal pain, no constipation, no dysphagia, no nausea - Genitourinary Genitourinary: no dysuria, no hematuria, no nocturia - Musculoskeletal Musculoskeletal: no abnormal gait, no arthralgias, no back pain, no muscle cramps, no muscle weakness - Integumentary Integumentary: no erythema, no rash - Neurological Neurological: no abnormal speech, no dizziness, no loss of vision - Psychiatric Psychiatric: no anxiety, no depression, no hallucinations - Hematological/Lymphatic Hematologic/Lymphatic: no easy bleeding, no easy bruising Physical Examination General: Conversant, No Apparent Distress HEENT: Atraumatic, Normocephaly, Mucus Membranes Moist Neck: No JVD, Normal carotid pulses Cardiac: Reg Rate and Rhythm, Normal S1 and S2, No Murmur Lungs: Other (Mild rales bilaterally in the bases.) Neuro: Alert and responsive, No focal deficits noted Abdomen: Soft, Non-Tender Skin: No rashes noted on visualized skin Musculoskeletal: No Chest Wall Tenderness Extremities: No Clubbing, No Cyanosis, No Edema, Normal Pulses Results 02/10/17 05:16 02/10/17 05:16 Lab Results 02/10/17 10:47 Troponin I 0.00 - Imaging and Cardiology Chest Xray: report reviewed, image reviewed Echo: report reviewed, image reviewed - EKG Interpretation EKG results cardiology: personally reviewed, normal ECG Consult Discharge Plan - Plan Additional Instructions: pcp requested Referrals: Waylon Cobb Jr, MD [Partnered Physician] -
[2017-02-10] MEDS: Insulin LISPRO 300 UNITS/3 ML VIAL SQ SCH ×2 (12:55→16:52)
[2017-02-10] MEDS: methylPREDNISolone 125 MG/2 ML VIAL IVP SCH ×3 (12:56→23:07)
[2017-02-10] MEDS: Aspirin Enteric Coated 81 MG Tablet PO SCH (16:44)
[2017-02-10 16:48] LABS: Calcium 9.3 mg/dL (8.6-10.8); Magnesium 2.1 mg/dL (1.6-2.6); Potassium 4.5 mEq/L (3.5-4.5)
[2017-02-10] MEDS: *HR* Heparin 5,000 UNIT/ML VIAL SQ SCH (16:54)
[2017-02-10] MEDS: *HR* Glimepiride 2 MG TABLET PO SCH (17:04)
--- NOTE | 2017-02-10 18:25 | Electrocardiograph Report ---
[place] [id number] Test Date: 2017-02-10 Pat Name: Natacha Griffin Department: 103 Room: 2NE22 Gender: F Bat Carrier: BRITTANI : 1940 Requested By: Tejas Soriano Order Number: [id number] Reading MD: Keegan Luz MD Measurements Intervals [place] Rate: 81 P: 38 NM: 142 QRS: 136 QRSD: 164 T: -66 QT: 433 QTc: 470 Interpretive Statements ELECTRONIC VENTRICULAR PACEMAKER ABNORMAL RHYTHM ECG Electronically Signed On 02-10-2017 18:24:05 EDT by Keegan Luz MD
[2017-02-10] MEDS: Mirtazapine 15 MG TABLET PO SCH (20:39)
[2017-02-11 03:53] LABS: Basophils % 0.1 %; Hematocrit 40.2 % (35.3-44.9); Immature Granulocytes % 0.9 % (0-4); Lymphocytes # 0.9 K/mcL (0.6-4.6); Lymphocytes % 7.1 %; Mean Corpuscular HGB Conc 32.3 g/dL (31.6-35.5); Mean Corpuscular Hemoglobin 30.3 pg (28.0-33.3); Mean Corpuscular Volume 93.7 fL (83.0-100.0); Mean Platelet Volume 11.1 fL (9.4-12.4); Monocytes # 0.4 K/mcL (0.0-1.3); Monocytes % 3.1 %; Neutrophils # 11.4 K/mcL (1.6-8.9); Platelet Count 185 K/mcL (140-400); Red Blood Count 4.29 M/mcL (3.82-4.97); Segmented Neutrophils % 88.8 %
[2017-02-11 04:08] LABS: Calcium 9.4 mg/dL (8.6-10.8); Chol/HDL Ratio 7.2 (0-4.9); Magnesium 2.3 mg/dL (1.6-2.6); Potassium 4.3 mEq/L (3.5-4.5)
[2017-02-11] MEDS: Ipratropium/Albuterol Neb 3 ML IH SCH ×4 (04:11→22:40)
[2017-02-11] MEDS: *HR* Heparin 5,000 UNIT/ML VIAL SQ SCH ×2 (05:34→16:53)
[2017-02-11] MEDS: methylPREDNISolone 125 MG/2 ML VIAL IVP SCH ×3 (05:34→16:47)
[2017-02-11] MEDS: Lisinopril 20 MG TABLET PO SCH (09:11)
[2017-02-11] MEDS: Folic Acid 1 MG TABLET PO SCH (09:12)
[2017-02-11] MEDS: Furosemide 20 MG/2 ML VIAL IVP SCH ×2 (09:12→16:47)
[2017-02-11] MEDS: Gabapentin 100 MG CAPSULE PO SCH ×3 (09:12→22:10)
[2017-02-11] MEDS: Magnesium Oxide 400 MG TABLET PO SCH (09:12)
[2017-02-11] MEDS: Isosorbide MONOnitrate (24 HR) 30 MG TAB.ER.24H PO SCH (09:12)
[2017-02-11] MEDS: Famotidine 20 MG TABLET PO SCH ×2 (09:12→22:12)
[2017-02-11] MEDS: *HR* Glimepiride 2 MG TABLET PO SCH (09:12)
[2017-02-11] MEDS: Insulin LISPRO 300 UNITS/3 ML VIAL SQ SCH ×3 (09:13→16:49)
--- NOTE | 2017-02-11 11:24 | Internal Med Progress Note ---
Date of Encounter: 02/12/17 Time of Encounter: 11:22 - Assessment and plan (1) Acute respiratory failure with hypoxia and hypercapnia Current Visit: Yes Status: Acute (2) Acute CHF Current Visit: Yes Status: Acute Qualifiers: Congestive heart failure type: combined Qualified Code(s): I50.41 - Acute combined systolic (congestive) and diastolic (congestive) heart failure (3) Chest pain Current Visit: Yes Status: Acute Qualifiers: Chest pain type: unspecified Qualified Code(s): R07.9 - Chest pain, unspecified (4) DVT prophylaxis Current Visit: Yes Status: Acute (5) Diabetes mellitus type 2 in obese Current Visit: Yes Status: Acute (6) H/O cardiomyopathy Current Visit: Yes Status: Acute (7) CKD (chronic kidney disease) stage 3, GFR 30-59 ml/min Current Visit: Yes Status: Chronic (8) Diabetes Current Visit: Yes Status: Chronic Qualifiers: Diabetes mellitus type: type 2 Diabetes mellitus complication status: with unspecified complications Diabetes mellitus senior care insulin use: without terminal manager use Qualified Code(s): E11.8 - Type 2 diabetes mellitus with unspecified complications (9) Hypertension Current Visit: Yes Status: Chronic Qualifiers: Hypertension type: essential hypertension Qualified Code(s): I10 - Essential (primary) hypertension (10) Morbid obesity with BMI of 40.0-44.9, adult Current Visit: Yes Status: Chronic - Subjective Interval history: Mrs. Natacha Griffin is a 76-year-old female who is DNR. 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 An admission there was a concern if she has underlying COPD and interstitial lung disease or pneumonia. Director Of Patient Financial Services has seen the patient and feels this is primarily a cardiac issue. she has underlying diabetes and hypertension which need daily monitoring. she is -3 L since last night - Constitutional Vitals: Temp Pulse Resp BP Pulse Ox 97.6 F 76 18 140/88 97 02/11/17 07:37 02/11/17 07:37 02/11/17 07:37 02/11/17 07:37 02/11/17 07:37 General appearance: Present: A&O X 3, severe distress - Head Head exam: Present: atraumatic, normocephalic - Eye Eye exam: Present: PERRL, conjuntiva pink, sclera anicteric Pupils: Present: PERRL - Neck Neck exam general surgery: Present: supple, trachea midline. Absent: lymphadenopathy - Respiratory Respiratory exam: Present: CTAB. Absent: accessory muscle use, rales, rhonchi, wheezes - Cardiovascular Cardiovascular exam: Present: RRR, +S1, +S2. Absent: diastolic murmur, gallop, rubs, systolic murmur - GI/Abdominal GI/Abdominal exam: Present: normal bowel sounds, soft, no peritoneal signs. Absent: distended, tenderness - Extremities Exam Extremities exam: Present: warm, radial pulses palpable and symetrical. Absent : calf tenderness, cyanotic, pedal edema - Neurological Exam Neurological exam: Present: CN II-XII intact, oriented X3, no focal deficits. Absent: pronater drift, facial droop, speech deficit - Skin Skin exam: Present: dry, intact Internal Medicine: Result - Labs CBC & Chem 7: 02/11/17 03:36 02/11/17 03:36 Labs: Short CBC 02/11/17 Range/Units 03:36 WBC 12.8 H (4.3-11.1) K/mcL Hgb 13.0 (11.5-15.4) g/dL Hct 40.2 (35.3-44.9) % Plt Count 185 (140-400) K/mcL Neutrophils # 11.4 H (1.6-8.9) K/mcL BMP 02/10/17 02/11/17 16:21 03:36 Sodium 134 L 137 Potassium 4.5 4.3 Chloride 97 L 98 Carbon Dioxide 28 27 BUN 32 H 33 H Creatinine 1.66 H 1.67 H Glucose 297 H 250 H Calcium 9.3 9.4 Cardiac Enzymes 02/10/17 02/10/17 Range/Units 10:47 16:21 Troponin I 0.00 0.01 (0-0.03) ng/mL Consult Discharge Plan - Plan Additional Instructions: pcp requested Referrals: Janice Hameed DO [Partnered Physician] - 02/17/17 9:30 am Waylon Cobb Jr, MD [Partnered Physician] -
--- NOTE | 2017-02-11 14:45 | Cardiology Progress Note ---
Date of Encounter: 02/11/17 Time of Encounter: 14:42 Assessment and Plan (1) Systolic CHF, acute Current Visit: No Status: Acute Today she seems to be much better with the systolic CHF as she has known diagnosed non-ischemic cardiomyopathy. Due to clear breath sounds and no pedal edema the diuresis has rectified her systolic CHF. She is now down 4.5 L. We would recommend that she continue her normal lasix regimen and f/u with cardiology at her scheduled appointment with Dr. Poon to talk more about her cardiomyopathy and more frequent office visits. At this time cardiology can sign off for this problem. (2) NICM (nonischemic cardiomyopathy) Current Visit: No Status: Chronic This is a chronic issue that is treated with Lasix to help with fluid overload, as well as lisinopril and coreg to help decrease preload. Continue her on these medications the symptoms from this will lessen once the pneumonia is treated with antibiotics. Continue current medication regimen. Cardiology can signoff at this time. Discussion w patient/family: The assessment and plan as outlined above was discussed with the patient and/or family members who expressed understanding and agreement. All questions were answered. Thank you for involving us in the care of your patient. Please call with any questions. Subjective Principal diagnosis: Acute Systolic CHF Interval history: Pt states she is doing much better today and feels like her CHF is much better at this time. She still complains of no chest pain today. She feels as though her CHF is nearly gone and she can breath much more comfortably and doesn't note any leg swelling at this time. Objective Vital Signs, Last 4 Hours Temp Pulse Resp BP Pulse Ox 02/11/17 11:52 97.6 F 75 18 130/61 97 General: Conversant, No Apparent Distress HEENT: Atraumatic, Normocephaly, Mucus Membranes Moist Neck: No JVD, Normal carotid pulses Cardiac: Reg Rate and Rhythm, Normal S1 and S2, No Murmur Lungs: Normal Breath Sounds, No Wheeze, Rales, Rhonchi Neuro: Alert and responsive, No focal deficits noted Abdomen: Soft, Non-Tender Skin: No rashes noted on visualized skin Musculoskeletal: No Chest Wall Tenderness Extremities: No Clubbing, No Cyanosis, No Edema, Normal Pulses Results 02/11/17 03:36 02/11/17 03:36 Lab Results 02/10/17 02/10/17 02/11/17 16:21 16:21 03:36 WBC 12.8 H Hgb 13.0 Hct 40.2 Plt Count 185 Sodium 134 L Potassium 4.5 Chloride 97 L Carbon Dioxide 28 BUN 32 H Creatinine 1.66 H Glucose 297 H Calcium 9.3 Magnesium 2.1 Troponin I 0.01 02/11/17 03:36 WBC Hgb Hct Plt Count Sodium 137 Potassium 4.3 Chloride 98 Carbon Dioxide 27 BUN 33 H Creatinine 1.67 H Glucose 250 H Calcium 9.4 Magnesium 2.3 Troponin I Consult Discharge Plan - Plan Additional Instructions: pcp requested Referrals: Janice Hameed DO [Partnered Physician] - 02/17/17 9:30 am Waylon Cobb Jr, MD [Partnered Physician] -
[2017-02-11] MEDS: Aspirin Enteric Coated 81 MG Tablet PO SCH (16:46)
[2017-02-11 17:03] LABS: Hemoglobin A1C 6.7 %
[2017-02-11] MEDS ORDERED: Insulin DETEMIR 100 UNIT/ML X5UNITS SQ SCH (21:00)
[2017-02-11] MEDS ORDERED: Insulin LISPRO 300 UNITS/3 ML VIAL SQ SCH (21:00)
[2017-02-11] MEDS: Mirtazapine 15 MG TABLET PO SCH (22:13)
[2017-02-12] MEDS: methylPREDNISolone 125 MG/2 ML VIAL IVP SCH ×2 (00:47→08:32)
[2017-02-12] MEDS: Ipratropium/Albuterol Neb 3 ML IH SCH ×4 (04:27→21:56)
[2017-02-12] MEDS: *HR* Heparin 5,000 UNIT/ML VIAL SQ SCH ×2 (06:17→17:27)
[2017-02-12] MEDS: Famotidine 20 MG TABLET PO SCH (08:31)
[2017-02-12] MEDS: Gabapentin 100 MG CAPSULE PO SCH ×3 (08:31→22:17)
[2017-02-12] MEDS: Lisinopril 20 MG TABLET PO SCH (08:31)
[2017-02-12] MEDS: Isosorbide MONOnitrate (24 HR) 30 MG TAB.ER.24H PO SCH (08:32)
[2017-02-12] MEDS: Magnesium Oxide 400 MG TABLET PO SCH (08:32)
[2017-02-12] MEDS: Furosemide 20 MG/2 ML VIAL IVP SCH ×2 (08:32→17:25)
[2017-02-12] MEDS: Folic Acid 1 MG TABLET PO SCH (08:32)
[2017-02-12] MEDS: Insulin LISPRO 300 UNITS/3 ML VIAL SQ SCH ×4 (08:39→22:27)
[2017-02-12] MEDS ORDERED: Levofloxacin 750 MG/150 ML 750 MG/150 ML BAG IVPB SCH (09:00)
[2017-02-12] MEDS ORDERED: Furosemide 40 MG/4 ML VIAL IVP ONE (13:12)
[2017-02-12] MEDS ORDERED: Acetaminophen 325 MG TABLET PO PRN ×2 (13:14→13:16)
--- NOTE | 2017-02-12 16:22 | Internal Med Progress Note ---
Date of Encounter: 02/12/17 Time of Encounter: 16:10 - Assessment and plan (1) Acute respiratory failure with hypoxia and hypercapnia Current Visit: Yes Status: Acute (2) Acute CHF Current Visit: Yes Status: Acute Qualifiers: Congestive heart failure type: combined Qualified Code(s): I50.41 - Acute combined systolic (congestive) and diastolic (congestive) heart failure (3) Chest pain Current Visit: Yes Status: Acute Qualifiers: Chest pain type: unspecified Qualified Code(s): R07.9 - Chest pain, unspecified (4) DVT prophylaxis Current Visit: Yes Status: Acute (5) Diabetes mellitus type 2 in obese Current Visit: Yes Status: Acute (6) H/O cardiomyopathy Current Visit: Yes Status: Acute (7) CKD (chronic kidney disease) stage 3, GFR 30-59 ml/min Current Visit: Yes Status: Chronic (8) Diabetes Current Visit: Yes Status: Chronic Qualifiers: Diabetes mellitus type: type 2 Diabetes mellitus complication status: with unspecified complications Diabetes mellitus penitentiary insulin use: without intermediate accountant use Qualified Code(s): E11.8 - Type 2 diabetes mellitus with unspecified complications (9) Hypertension Current Visit: Yes Status: Chronic Qualifiers: Hypertension type: essential hypertension Qualified Code(s): I10 - Essential (primary) hypertension (10) Morbid obesity with BMI of 40.0-44.9, adult Current Visit: Yes Status: Chronic - Subjective Interval history: Mrs. Natacha Griffin is a 76-year-old female who is DNR. 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 An admission there was a concern if she has underlying COPD and interstitial lung disease or pneumonia. Distribution Estimator has seen the patient and feels this is primarily a cardiac issue. she has underlying diabetes and hypertension which need daily monitoring. she is -3 L since last night 8/2 feels better. Negative net fluid balance. Bilateral leg edema plus pulmonary rales on exam therefore an additional dose of I IV Lasix given. Continue same treatment otherwis repeat CBC CMP daily Blood sugar elevated at Lantus and increase sliding scaleto moderate. Hemoglobin A1c is only 6.7.total cholesterol 210 LDL cholesterol 158 andHDL only 29. Add lipitor 10. Anticipate DC in 1-2 days. - Constitutional Vitals: Temp Pulse Resp BP Pulse Ox 97.7 F 77 18 147/94 93 02/12/17 15:17 02/12/17 15:17 02/12/17 15:17 02/12/17 15:17 02/12/17 15:17 General appearance: Present: A&O X 3, severe distress - Head Head exam: Present: atraumatic, normocephalic - Eye Eye exam: Present: PERRL, conjuntiva pink, sclera anicteric Pupils: Present: PERRL - Neck Neck exam general surgery: Present: supple, trachea midline. Absent: lymphadenopathy - Respiratory Respiratory exam: Present: CTAB, rales. Absent: accessory muscle use, rhonchi, wheezes Additional comments: bilateral basal rales no wheezing - Cardiovascular Cardiovascular exam: Present: RRR, +S1, +S2. Absent: diastolic murmur, gallop, rubs, systolic murmur - GI/Abdominal GI/Abdominal exam: Present: normal bowel sounds, soft, no peritoneal signs. Absent: distended, tenderness - Extremities Exam Extremities exam: Present: pedal edema, warm, radial pulses palpable and symetrical. Absent: calf tenderness, cyanotic - Neurological Exam Neurological exam: Present: CN II-XII intact, oriented X3, no focal deficits. Absent: pronater drift, facial droop, speech deficit - Skin Skin exam: Present: dry, intact Internal Medicine: Result - Labs CBC & Chem 7: 02/11/17 03:36 02/11/17 03:36 Consult Discharge Plan - Plan Additional Instructions: pcp requested Referrals: Janice Hameed DO [Partnered Physician] - 02/17/17 9:30 am Waylon Cobb Jr, MD [Partnered Physician] -
[2017-02-12] MEDS: Aspirin Enteric Coated 81 MG Tablet PO SCH (17:24)
[2017-02-12] MEDS: MethylPREDNISolone 40 MG/ML VIAL IVP SCH ×2 (17:25→23:56)
[2017-02-12] MEDS: Insulin DETEMIR 100 UNIT/ML X5UNITS SQ SCH (22:16)
[2017-02-12] MEDS: Mirtazapine 15 MG TABLET PO SCH (22:17)
[2017-02-13 03:54] LABS: Basophils % 0.1 %; Hematocrit 41.9 % (35.3-44.9); Hemoglobin 13.2 g/dL (11.5-15.4); Immature Granulocytes % 1.1 % (0-4); Lymphocytes # 0.8 K/mcL (0.6-4.6); Lymphocytes % 3.8 %; Mean Corpuscular HGB Conc 31.5 g/dL (31.6-35.5); Mean Corpuscular Hemoglobin 30.5 pg (28.0-33.3); Mean Corpuscular Volume 96.8 fL (83.0-100.0); Mean Platelet Volume 11.2 fL (9.4-12.4); Monocytes # 1.1 K/mcL (0.0-1.3); Monocytes % 5.2 %; Platelet Count 192 K/mcL (140-400); Red Blood Count 4.33 M/mcL (3.82-4.97); Red Cell Distribution Width 15.3 % (11.5-14.5); Segmented Neutrophils % 89.8 %
[2017-02-13] MEDS: Ipratropium/Albuterol Neb 3 ML IH SCH ×4 (03:54→22:21)
[2017-02-13 03:55] LABS: Neutrophils # 18.8 K/mcL (1.6-8.9)
[2017-02-13 04:12] LABS: Albumin 3.3 g/dL (3.5-5.0); Albumin/Globulin Ratio 1.1 (1.1-2.2); Bilirubin,Total 0.4 mg/dL (0.2-1.2); Calcium 9.3 mg/dL (8.6-10.8); Potassium 3.7 mEq/L (3.5-4.5); Total Protein 6.3 g/dL (6.0-8.3)
[2017-02-13] MEDS: *HR* Heparin 5,000 UNIT/ML VIAL SQ SCH ×2 (05:34→16:43)
[2017-02-13] MEDS: Insulin LISPRO 300 UNITS/3 ML VIAL SQ SCH ×4 (08:42→21:47)
[2017-02-13] MEDS: MethylPREDNISolone 40 MG/ML VIAL IVP SCH (08:46)
[2017-02-13] MEDS: Folic Acid 1 MG TABLET PO SCH (08:46)
[2017-02-13] MEDS: Furosemide 20 MG/2 ML VIAL IVP SCH (08:46)
[2017-02-13] MEDS: Isosorbide MONOnitrate (24 HR) 30 MG TAB.ER.24H PO SCH (08:46)
[2017-02-13] MEDS: Magnesium Oxide 400 MG TABLET PO SCH (08:46)
[2017-02-13] MEDS: Lisinopril 20 MG TABLET PO SCH (08:46)
[2017-02-13] MEDS: Gabapentin 100 MG CAPSULE PO SCH ×3 (08:47→21:44)
--- NOTE | 2017-02-13 09:10 | Internal Med Progress Note ---
Date of Encounter: 02/14/17 Time of Encounter: 09:08 - Assessment and plan (1) Acute CHF Current Visit: Yes Status: Acute Assessment and plan: Nonischemic cardiac myopathy EF around 30% patient admitted with BNP more than 3300. Plan to aggressively diurese her. Qualifiers: Congestive heart failure type: combined Qualified Code(s): I50.41 - Acute combined systolic (congestive) and diastolic (congestive) heart failure (2) Acute respiratory failure with hypoxia and hypercapnia Current Visit: Yes Status: Acute (3) Chest pain Current Visit: Yes Status: Acute Qualifiers: Chest pain type: unspecified Qualified Code(s): R07.9 - Chest pain, unspecified (4) DVT prophylaxis Current Visit: Yes Status: Acute (5) Diabetes mellitus type 2 in obese Current Visit: Yes Status: Acute (6) H/O cardiomyopathy Current Visit: Yes Status: Acute (7) CKD (chronic kidney disease) stage 3, GFR 30-59 ml/min Current Visit: Yes Status: Chronic (8) Diabetes Current Visit: Yes Status: Chronic Qualifiers: Diabetes mellitus type: type 2 Diabetes mellitus complication status: with unspecified complications Diabetes mellitus prison insulin use: without prison use Qualified Code(s): E11.8 - Type 2 diabetes mellitus with unspecified complications (9) Hypertension Current Visit: Yes Status: Chronic Qualifiers: Hypertension type: essential hypertension Qualified Code(s): I10 - Essential (primary) hypertension (10) Morbid obesity with BMI of 40.0-44.9, adult Current Visit: Yes Status: Chronic - Subjective Interval history: Mrs. Natacha Griffin is a 76-year-old female who is DNR. 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 An admission there was a concern if she has underlying COPD and interstitial lung disease or pneumonia. Supervisor Mill has seen the patient and feels this is primarily a cardiac issue. she has underlying diabetes and hypertension which need daily monitoring. she is -3 L since last night 8/2 feels better. Negative net fluid balance. Bilateral leg edema plus pulmonary rales on exam therefore an additional dose of I IV Lasix given. Continue same treatment otherwis repeat CBC CMP daily Blood sugar elevated at Lantus and increase sliding scaleto moderate. Hemoglobin A1c is only 6.7.total cholesterol 210 LDL cholesterol 158 andHDL only 29. Add lipitor 10. Anticipate DC in 1-2 days. 02/13 7400 mL negative since admission. CHF is very well compensated however she came in with BNP of 3300+. At this time will continue Lasix 40 twice a day which can be switched to oral. Her WBC count is noted around 20,000 this morning. I am pretty sure this is secondary to steroids and we started tapering dose yesterday already but at this time considering the fact that COPD plays very minor role in her symptomatology I will DC IV steroids and put her on prednisone 20 daily and will also ask pharmacist to DC Levaquin. Repeat WBC tomorrow ambulate - Constitutional Vitals: Temp Pulse Resp BP Pulse Ox 97.8 F 75 18 144/96 96 02/13/17 07:57 02/13/17 07:57 02/13/17 07:57 02/13/17 07:57 02/13/17 07:57 General appearance: Present: A&O X 3, severe distress - Head Head exam: Present: atraumatic, normocephalic - Eye Eye exam: Present: PERRL, conjuntiva pink, sclera anicteric Pupils: Present: PERRL - Neck Neck exam general surgery: Present: supple, trachea midline. Absent: lymphadenopathy - Respiratory Respiratory exam: Present: CTAB. Absent: accessory muscle use, rales, rhonchi, wheezes - Cardiovascular Cardiovascular exam: Present: RRR, +S1, +S2. Absent: diastolic murmur, gallop, rubs, systolic murmur - GI/Abdominal GI/Abdominal exam: Present: normal bowel sounds, soft, no peritoneal signs. Absent: distended, tenderness - Extremities Exam Extremities exam: Present: warm, radial pulses palpable and symetrical. Absent : calf tenderness, cyanotic, pedal edema - Neurological Exam Neurological exam: Present: CN II-XII intact, oriented X3, no focal deficits. Absent: pronater drift, facial droop, speech deficit - Skin Skin exam: Present: dry, intact Internal Medicine: Result - Labs CBC & Chem 7: 02/14/17 02:56 02/14/17 02:56 Labs: Short CBC 02/13/17 Range/Units 02:59 WBC 20.9 H D (4.3-11.1) K/mcL Hgb 13.2 (11.5-15.4) g/dL Hct 41.9 (35.3-44.9) % Plt Count 192 (140-400) K/mcL Neutrophils # 18.8 H (1.6-8.9) K/mcL BMP 02/13/17 02:59 Sodium 139 Potassium 3.7 Chloride 97 L Carbon Dioxide 36 H BUN 42 H Creatinine 1.29 H Glucose 171 H Calcium 9.3 Liver Function 02/13/17 Range/Units 02:59 Total Bilirubin 0.4 (0.2-1.2) mg/dL AST 31 (5-34) Units/L ALT 21 (0-55) Units/L Alkaline Phosphatase 74 (38-126) Units/L Albumin 3.3 L (3.5-5.0) g/dL Consult Discharge Plan - Plan Additional Instructions: pcp requested Referrals: Janice Hameed DO [Partnered Physician] - 02/17/17 9:30 am
[2017-02-13] MEDS: predniSONE 20 MG TABLET PO SCH (10:33)
[2017-02-13] MEDS: Aspirin Enteric Coated 81 MG Tablet PO SCH (16:43)
[2017-02-13] MEDS: Mirtazapine 15 MG TABLET PO SCH (21:43)
[2017-02-13] MEDS: Insulin DETEMIR 100 UNIT/ML X5UNITS SQ SCH (21:43)
[2017-02-14 03:41] LABS: Basophils % 0.1 %; Eosinophils # 0.1 K/mcL (0.0-0.6); Eosinophils % 0.5 %; Hematocrit 41.7 % (35.3-44.9); Hemoglobin 12.9 g/dL (11.5-15.4); Immature Granulocytes % 1.4 % (0-4); Lymphocytes # 1.8 K/mcL (0.6-4.6); Lymphocytes % 9.9 %; Mean Corpuscular HGB Conc 30.9 g/dL (31.6-35.5); Mean Corpuscular Hemoglobin 30.4 pg (28.0-33.3); Mean Corpuscular Volume 98.1 fL (83.0-100.0); Monocytes # 1.9 K/mcL (0.0-1.3); Monocytes % 10.2 %; Neutrophils # 14.4 K/mcL (1.6-8.9); Platelet Count 187 K/mcL (140-400); Red Blood Count 4.25 M/mcL (3.82-4.97); Red Cell Distribution Width 15.2 % (11.5-14.5); Segmented Neutrophils % 77.9 %
[2017-02-14 04:01] LABS: Albumin 3.2 g/dL (3.5-5.0); Albumin/Globulin Ratio 1.1 (1.1-2.2); Bilirubin,Total 0.4 mg/dL (0.2-1.2); Calcium 9.2 mg/dL (8.6-10.8); Globulin 2.8 g/dL (2.4-3.5); Potassium 3.6 mEq/L (3.5-4.5)
[2017-02-14] MEDS: Ipratropium/Albuterol Neb 3 ML IH SCH ×3 (04:23→16:31)
[2017-02-14] MEDS: *HR* Heparin 5,000 UNIT/ML VIAL SQ SCH (05:07)
[2017-02-14] MEDS: Insulin LISPRO 300 UNITS/3 ML VIAL SQ SCH ×2 (08:29→11:43)
[2017-02-14] MEDS: Isosorbide MONOnitrate (24 HR) 30 MG TAB.ER.24H PO SCH (08:32)
[2017-02-14] MEDS: Gabapentin 100 MG CAPSULE PO SCH (08:33)
[2017-02-14] MEDS: Magnesium Oxide 400 MG TABLET PO SCH (08:34)
[2017-02-14] MEDS: Folic Acid 1 MG TABLET PO SCH (08:34)
[2017-02-14] MEDS: Lisinopril 20 MG TABLET PO SCH (08:35)
[2017-02-14] MEDS: predniSONE 20 MG TABLET PO SCH (08:35)
[2017-02-14] MEDS ORDERED: levoFLOXacin 750 MG TABLET PO SCH (09:00)
--- NOTE | 2017-02-14 15:47 | Discharge Summary ---
Date of Encounter: 02/14/17 Time of Encounter: 15:42 - Discharge Diagnosis (1) Acute CHF Priority: Primary Status: Acute Qualifiers: Congestive heart failure type: combined Qualified Code(s): I50.41 - Acute combined systolic (congestive) and diastolic (congestive) heart failure (2) Acute respiratory failure with hypoxia and hypercapnia Priority: Primary Status: Acute (3) Chest pain Priority: Secondary Status: Acute Qualifiers: Chest pain type: unspecified Qualified Code(s): R07.9 - Chest pain, unspecified (4) DVT prophylaxis Priority: Secondary Status: Acute (5) Diabetes mellitus type 2 in obese Priority: Secondary Status: Acute (6) H/O cardiomyopathy Priority: Secondary Status: Acute (7) CKD (chronic kidney disease) stage 3, GFR 30-59 ml/min Priority: Secondary Status: Chronic (8) Diabetes Priority: Secondary Status: Chronic Qualifiers: Diabetes mellitus type: type 2 Diabetes mellitus complication status: with unspecified complications Diabetes mellitus mcc insulin use: without mcc use Qualified Code(s): E11.8 - Type 2 diabetes mellitus with unspecified complications (9) Hypertension Priority: Secondary Status: Chronic Qualifiers: Hypertension type: essential hypertension Qualified Code(s): I10 - Essential (primary) hypertension (10) Morbid obesity with BMI of 40.0-44.9, adult Priority: Secondary Status: Chronic - Discharge Medications Home Medications: Aspirin Enteric Coated [Aspirin EC] 81 mg PO QPM #0 03/25/15 [History] Carvedilol 12.5 mg PO BID #0 03/25/15 [History] Furosemide [Lasix] 60 mg PO DAILY #0 03/25/15 [History] Glimepiride [Amaryl] 2 mg PO QAM #0 03/25/15 [History] Nitroglycerin [Nitrostat] 0.4 mg SL Q5M PRN #0 03/25/15 [History] Omeprazole [PriLOSEC] 20 mg PO QAM #0 03/25/15 [History] Sennosides [Senna] 8.6 mg PO DAILY PRN #0 03/25/15 [History] Mirtazapine 30 mg PO HS 02/19/16 [History] Oxygen 4 l NS AD 02/19/16 [History] Potassium Chloride [Klor-Con Sprinkle] 10 meq PO HS 02/19/16 [History] Docusate [Colace] 100 mg PO BID capsule 02/22/16 [Rx] Cyclobenzaprine HCl 5 mg PO HS 08/26/16 [History] Escitalopram [Lexapro] 10 mg PO QAM 08/26/16 [History] Folic Acid [FA-8] 0.8 mg PO DAILY 08/26/16 [History] Lisinopril [Zestril] 20 mg PO DAILY 08/26/16 [History] SitaGLIPtin [Januvia] 100 mg PO DAILY 08/26/16 [History] clonazePAM [Klonopin] 0.5 mg PO TID PRN 08/26/16 [History] Gabapentin [Neurontin] 100 mg PO TID #60 capsule 08/28/16 [Rx] Escitalopram Oxalate 5 mg PO QPM 01/17/17 [History] Magnesium Citrate [Citroma] 296 ml PO DAILY PRN 01/17/17 [History] Magnesium Oxide [Magnesium] 500 mg PO DAILY 01/17/17 [History] Isosorbide MONOnitrate (24 HR) [Imdur] 30 mg PO DAILY #30 tab.er.24h 01/19/17 [ Rx] Acetaminophen [Tylenol] 650 mg PO Q6HR PRN tab 02/14/17 [Rx] Atorvastatin [Lipitor] 10 mg PO HS tab 02/14/17 [Rx] Docusate [Colace] 100 mg PO BID PRN 02/14/17 [Rx] GuaiFENesin ER [Mucinex] 600 mg PO BID PRN 02/14/17 [Rx] Ipratropium/Albuterol Neb [Duoneb] 3 ml IH [id number] inh 02/14/17 [Rx] levoFLOXacin [Levaquin] 750 mg PO Q48H #5 tab 02/14/17 [Rx] predniSONE [PredniSONE] 20 mg PO DAILY tab 02/14/17 [Rx] Allergies/Adverse Reactions: Allergies Amoxicillin Allergy (Verified 01/17/17 17:21) Swelling of Lip/Tongue/Throat Sulfa (Sulfonamide Antibiotics) Allergy (Verified 01/17/17 17:21) Swelling of Lip/Tongue/Throat acetaminophen [From Percocet] Adverse Reaction (Verified 01/17/17 17:21) Nausea citalopram [From Celexa] Adverse Reaction (Verified 01/17/17 17:21) Dizziness codeine [From Tylenol-Codeine] Adverse Reaction (Verified 01/17/17 17:21) Nausea epinephrine Adverse Reaction (Verified 01/17/17 17:21) Headache Oxycodone [From Percocet] Adverse Reaction (Verified 01/17/17 17:21) Nausea Penicillins [PCN] Adverse Reaction (Verified 01/17/17 17:21) Itching Date of admission: 02/10/17 08:17 Primary care physician: Wilmar Newman MD Consults: 02/10/17 08:24 Consult to Call Centre Supervisor [CONS] Routine Reason for SW Consult: CURRENT HOME 02 AND CPAP VIA [facility], CURRENT[facility], PT UNUSRE OF NAME 02/10/17 08:32 Consult to Cardiology [CONS] Routine Comment: Consulting Provider: Cardiology Virgie Reason for Consult: Acute chest pain .. CHF exacerbation Call Completed: Yes Consult to Pulmonology [CONS] Routine Consulting Provider: Pulm Crit Care & Sleep Virgie Reason for Consult: Acute resp failure Call Completed: Yes 02/10/17 10:32 Consult to Speech Therapy [CONS] Routine Comment: Evaluate, develop and implement POC Reason for Consult: swallowing eval difficulty swallowing food Time Notified: 10:33 Call Completed: No 02/12/17 19:18 Consult to Call Centre Supervisor [CONS] Routine Reason for SW Consult: patient asking for counseling services Discharging clinician: Charlie Almanza Anticipated date of discharge: 02/14/17 - Patient Status Disposition: Transfer SNF Condition: Fair Overall status at discharge: patient is progressing back to baseline - Discharge Instructions Follow Up With: Janice aHmeed DO [Partnered Physician] - 02/17/17 9:30 am Additional Instructions: pcp requested - Diet and Activity Activity: as per physical therapy Diet: advance to your usual diet, diabetic diet, low fat, low cholesterol, low salt diet Hospital course: Mrs. Natacha Griffin is a 76-year-old female who is DNR. 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 During admission there was a concern if she has underlying COPD and interstitial lung disease or pneumonia. Airport Operations Officer has seen the patient and feels this is primarily a cardiac issue. she has underlying diabetes and hypertension which need daily monitoring. she is -3 L since last night and feels better. Negative net fluid balance. Hemoglobin A1c is only 6.7.total cholesterol 210 LDL cholesterol 158 andHDL only 29. We lipitor 10. CHF is very well compensated .. Her white count was elevated due to the steroids and as soon as we stop IV Solu-Medrol her white count has not started going down. Clinically she did not appear to have an infection anyways. Due to steroids blood sugars were high therefore be admitted to [facility] but now we can skidded down as her sugars also appears low. - Time Spent with Patient Total time spent providing and/or coordinating discharge services: Greater than 30 minutes - Constitutional Vitals: Temp Pulse Resp BP Pulse Ox 97.8 F 77 18 141/89 93 02/14/17 07:04 02/14/17 07:04 02/14/17 10:57 02/14/17 07:04 02/14/17 10:57 General appearance: Present: A&O X 3, severe distress - Head Head exam: Present: atraumatic, normocephalic - Eye Eye exam: Present: PERRL, conjuntiva pink, sclera anicteric Pupils: Present: PERRL - Neck Neck exam general surgery: Present: supple, trachea midline. Absent: lymphadenopathy - Respiratory Respiratory exam: Present: CTAB. Absent: accessory muscle use, rales, rhonchi, wheezes - Cardiovascular Cardiovascular exam: Present: RRR, +S1, +S2. Absent: diastolic murmur, gallop, rubs, systolic murmur - GI/Abdominal GI/Abdominal exam: Present: normal bowel sounds, soft, no peritoneal signs. Absent: distended, tenderness - Extremities Exam Extremities exam: Present: warm, radial pulses palpable and symetrical. Absent : calf tenderness, cyanotic, pedal edema - Neurological Exam Neurological exam: Present: CN II-XII intact, oriented X3, no focal deficits. Absent: pronater drift, facial droop, speech deficit - Skin Skin exam: Present: dry, intact
--- NOTE | 2017-02-14 15:53 | Physician Discharge Referral ---
ExtendedCare Referral Info Transfer To: snf Provider in Charge: tab Provider in Charge after Transfer: PCP Institutional Level of Care: Skilled - Diagnosis (1) Acute CHF Status: Acute (2) Acute respiratory failure with hypoxia and hypercapnia Status: Acute (3) Chest pain Status: Acute (4) DVT prophylaxis Status: Acute (5) Diabetes mellitus type 2 in obese Status: Acute (6) H/O cardiomyopathy Status: Acute (7) CKD (chronic kidney disease) stage 3, GFR 30-59 ml/min Status: Chronic (8) Diabetes Status: Chronic (9) Hypertension Status: Chronic (10) Morbid obesity with BMI of 40.0-44.9, adult Status: Chronic - Transfer Medications Home Medications: Aspirin Enteric Coated [Aspirin EC] 81 mg PO QPM #0 03/25/15 [History] Carvedilol 12.5 mg PO BID #0 03/25/15 [History] Furosemide [Lasix] 60 mg PO DAILY #0 03/25/15 [History] Glimepiride [Amaryl] 2 mg PO QAM #0 03/25/15 [History] Nitroglycerin [Nitrostat] 0.4 mg SL Q5M PRN #0 03/25/15 [History] Omeprazole [PriLOSEC] 20 mg PO QAM #0 03/25/15 [History] Sennosides [Senna] 8.6 mg PO DAILY PRN #0 03/25/15 [History] Mirtazapine 30 mg PO HS 02/19/16 [History] Oxygen 4 l NS AD 02/19/16 [History] Potassium Chloride [Klor-Con Sprinkle] 10 meq PO HS 02/19/16 [History] Docusate [Colace] 100 mg PO BID capsule 02/22/16 [Rx] Cyclobenzaprine HCl 5 mg PO HS 08/26/16 [History] Escitalopram [Lexapro] 10 mg PO QAM 08/26/16 [History] Folic Acid [FA-8] 0.8 mg PO DAILY 08/26/16 [History] Lisinopril [Zestril] 20 mg PO DAILY 08/26/16 [History] SitaGLIPtin [Januvia] 100 mg PO DAILY 08/26/16 [History] clonazePAM [Klonopin] 0.5 mg PO TID PRN 08/26/16 [History] Gabapentin [Neurontin] 100 mg PO TID #60 capsule 08/28/16 [Rx] Escitalopram Oxalate 5 mg PO QPM 01/17/17 [History] Magnesium Citrate [Citroma] 296 ml PO DAILY PRN 01/17/17 [History] Magnesium Oxide [Magnesium] 500 mg PO DAILY 01/17/17 [History] Isosorbide MONOnitrate (24 HR) [Imdur] 30 mg PO DAILY #30 tab.er.24h 01/19/17 [ Rx] Acetaminophen [Tylenol] 650 mg PO Q6HR PRN tab 02/14/17 [Rx] Atorvastatin [Lipitor] 10 mg PO HS tab 02/14/17 [Rx] Docusate [Colace] 100 mg PO BID PRN 02/14/17 [Rx] GuaiFENesin ER [Mucinex] 600 mg PO BID PRN 02/14/17 [Rx] Ipratropium/Albuterol Neb [Duoneb] 3 ml IH [id number] inh 02/14/17 [Rx] levoFLOXacin [Levaquin] 750 mg PO Q48H #5 tab 02/14/17 [Rx] predniSONE [PredniSONE] 20 mg PO DAILY tab 02/14/17 [Rx] Allergies/Adverse Reactions: Allergies Amoxicillin Allergy (Verified 01/17/17 17:21) Swelling of Lip/Tongue/Throat Sulfa (Sulfonamide Antibiotics) Allergy (Verified 01/17/17 17:21) Swelling of Lip/Tongue/Throat acetaminophen [From Percocet] Adverse Reaction (Verified 01/17/17 17:21) Nausea citalopram [From Celexa] Adverse Reaction (Verified 01/17/17 17:21) Dizziness codeine [From Tylenol-Codeine] Adverse Reaction (Verified 01/17/17 17:21) Nausea epinephrine Adverse Reaction (Verified 01/17/17 17:21) Headache Oxycodone [From Percocet] Adverse Reaction (Verified 01/17/17 17:21) Nausea Penicillins [PCN] Adverse Reaction (Verified 01/17/17 17:21) Itching - Respiratory Orders Smoking Cessation: Smoking cessation has been advised. For more information, call the [place] Tobacco Quit Line at 2-898-VXYR-NOW. CERTIFICATION: I certify that the transfer of the above named patient to an Extended Care Facility is necessary for the continuing treatment of the diagnosis listed. The above information is true and accurate reflection of patient's current condition. Confidential - Redisclosure prohibited without a patient's written consent.
[2017-02-14 15:55] VITALS: BP 102/82
== END 2017-02-14 17:48 | DRG 291 ==
LOC: 2NENU 04:59 → EMEROO 04:59 → 2NENU 06:57
PROVIDERS: ADMIT Internal Medicine Hematology & Oncology; ATTEND Internal Medicine

== ENCOUNTER 2017-03-26 15:47 | Inpatient (IN) ==
[2017-03-26 16:17] LABS: Basophils % 0.3 %; Eosinophils # 0.1 K/mcL (0.0-0.6); Eosinophils % 1.1 %; Hematocrit 40.4 % (35.3-44.9); Hemoglobin 12.7 g/dL (11.5-15.4); Immature Granulocytes % 0.8 % (0-4); Lymphocytes # 1.8 K/mcL (0.6-4.6); Lymphocytes % 14.8 %; Mean Corpuscular HGB Conc 31.4 g/dL (31.6-35.5); Mean Corpuscular Hemoglobin 29.3 pg (28.0-33.3); Mean Corpuscular Volume 93.1 fL (83.0-100.0); Mean Platelet Volume 11.3 fL (9.4-12.4); Monocytes # 0.9 K/mcL (0.0-1.3); Monocytes % 7.2 %; Platelet Count 175 K/mcL (140-400); Red Blood Count 4.34 M/mcL (3.82-4.97); Red Cell Distribution Width 15.7 % (11.5-14.5); Segmented Neutrophils % 75.8 %
[2017-03-26 16:24] LABS: INR 3.5; Prothrombin Time 39.1 Seconds (9.4-12.1)
[2017-03-26 16:26] LABS: Activated Partial Thrombo Time 38.2 Seconds (26.0-36.0)
[2017-03-26 16:30] LABS: Calcium 9.9 mg/dL (8.6-10.8); Potassium 4.8 mEq/L (3.5-4.5)
[2017-03-26 16:50] LABS: Bilirubin,Urine Negative (Negative); Blood,Urine Negative (Negative); Clarity,Urine Clear (Clear); Color,Urine Yellow (Yellow); Glucose,Urine (UA) Normal (Normal); Ketones,Urine Negative (Negative); Leukocyte Esterase,Urine Negative (Negative); Nitrite,Urine Negative (Negative); PH,Urine 6.5 pH Units (5.0-8.0); Protein,Urine Negative (Neg-Trace); Specific Gravity,Urine 1.014 (1.010-1.025); Urobilinogen,Urine Normal (Normal)
--- NOTE | 2017-03-26 17:25 | Emergency Department Note ---
Disposition Clinical Impression: Congestive heart failure Disposition: Admitted As Inpatient Condition: Good Time of Disposition: 19:46 General Adult HPI - General Chief complaint: ED Weakness Stated complaint: HEMOPTYSIS Time Seen by Provider: 03/26/17 15:50 Source: patient, EMS Mode of arrival: EMS Limitations: no limitations Nursing Notes Reviewed: Yes Vital Signs Reviewed: Yes - History of Present Illness HPI Narrative: Patient presents to the ED via EMS with the chief complaint of hemoptysis. Patient reports that she was recently started on Xarelto for a right lower extremity DVT. She subsequently developed pneumonia and was just discharged last week. Today she woke up and had a few episodes of hemoptysis. States that her sputum was blood-tinged and she also saw small clot in it. She has been more short of breath than usual with exertional dyspnea. She is also having intermittent chest heaviness and pressure over the last 2-3 days but none today or currently. Does have a history of CAD. No new pain or swelling in her legs. No abdominal pain, vomiting or diarrhea. Does have some nausea. No melena or hematochezia. Pain Scale: 0 - Related Data Home Medications Medication Instructions Recorded Confirmed Carvedilol 12.5 mg PO BID #0 03/25/15 03/26/17 Furosemide [Lasix] 60 mg PO DAILY #0 03/25/15 03/26/17 Glimepiride [Amaryl] 2 mg PO QAM #0 03/25/15 03/26/17 Nitroglycerin [Nitrostat] 0.4 mg SL Q5M PRN #0 03/25/15 03/26/17 Omeprazole [PriLOSEC] 20 mg PO QAM #0 03/25/15 03/26/17 Mirtazapine 30 mg PO HS 02/19/16 03/26/17 Oxygen 4 l NS AD 02/19/16 03/26/17 Potassium Chloride [Klor-Con 10 meq PO HS 02/19/16 03/26/17 Sprinkle] Cyclobenzaprine HCl 5 mg PO HS 08/26/16 03/26/17 Escitalopram [Lexapro] 10 mg PO QAM 08/26/16 03/26/17 Folic Acid [FA-8] 0.8 mg PO DAILY 08/26/16 03/26/17 Lisinopril [Zestril] 20 mg PO DAILY 08/26/16 03/26/17 SitaGLIPtin [Januvia] 100 mg PO DAILY 08/26/16 03/26/17 clonazePAM [Klonopin] 0.5 mg PO TID PRN 08/26/16 03/26/17 Escitalopram Oxalate 5 mg PO QPM 01/17/17 03/26/17 Magnesium Oxide [Magnesium] 500 mg PO DAILY 01/17/17 03/26/17 Polyethylene Glycol 3350 [MiraLAX] 17 gm PO DAILY 03/26/17 03/26/17 Rivaroxaban [Xarelto] 20 mg PO DAILY 03/26/17 03/26/17 Previous Rx's Medication Instructions Recorded Gabapentin [Neurontin] 100 mg PO TID #60 capsule 08/28/16 Isosorbide MONOnitrate (24 HR) 30 mg PO DAILY #30 tab.er.24h 01/19/17 [Imdur] Atorvastatin [Lipitor] 10 mg PO HS tab 02/14/17 Docusate [Colace] 100 mg PO BID PRN 02/14/17 Allergies Allergy/AdvReac Type Severity Reaction Status Date / Time Amoxicillin Allergy Swelling Verified 01/17/17 17:21 of Lip/Tongue/Throat Sulfa (Sulfonamide Allergy Swelling Verified 01/17/17 17:21 Antibiotics) of Lip/Tongue/Throat acetaminophen [From Percocet] AdvReac Nausea Verified 01/17/17 17:21 citalopram [From Celexa] AdvReac Dizziness Verified 01/17/17 17:21 codeine AdvReac Nausea Verified 01/17/17 17:21 [From Tylenol-Codeine] epinephrine AdvReac Headache Verified 01/17/17 17:21 Oxycodone [From Percocet] AdvReac Nausea Verified 01/17/17 17:21 Penicillins [PCN] AdvReac Itching Verified 01/17/17 17:21 All systems ED: reviewed and negative except as stated. Constitutional: Denies: fever Cardiovascular: Reports: chest pain, dyspnea on exertion Respiratory: Reports: cough, dyspnea, hemoptysis, sputum production Gastrointestinal: Reports: nausea Musculoskeletal: Denies: back pain Past Medical History - Past Medical History Attestation: Yes The following information was validated with the patient. Source: patient, old records reviewed Medical history: Reports: arthritis, cancer, cardiomyopathy, CHF, COPD, coronary artery disease, diabetes, GERD, hyperlipidemia, hypertension, malignancy, osteoporosis, renal disease, other Surgical history: Reports: cancer surgery (Left breast lumpectomy), cataract ( Bilateral cataract surgery with lens implants), hip replacement (Right hip replacement), orthopedic, other, pacemaker/AICD, other Psychiatric history: Reports: anxiety, depression SURGICAL GARMENT INSPECTOR history: Reports: no SURGICAL GARMENT INSPECTOR history - Social History Smoking Status: Former smoker Smokeless Tobacco Status: No Alcohol use: Reports: none Drug use: Reports: none Physical Exam - General Limitations: no limitations General appearance: alert, in no apparent distress - Head Head exam: atraumatic, normocephalic, normal inspection - Eye Eye exam: Present: normal appearance, PERRL, EOMI - ENT ENT exam: normal exam, normal oropharynx, mucous membranes moist - Neck Neck exam: Present: normal inspection, full ROM, trachea midline - Chest Chest inspection: Present: normal inspection, symmetric chest wall rise - Respiratory Respiratory exam: Present: respiratory distress (mild ), prolonged expiratory phase. Absent: normal lung sounds bilaterally, wheezes, accessory muscle use - Cardiovascular Cardiovascular exam: Present: regular rate, normal rhythm, normal heart sounds - Abdominal Exam Abdominal exam: Present: soft, Non-Tender. Absent: tenderness, distention, guarding, rebound, rigidity - Extremities Exam Extremities exam: Present: pedal edema - Neurological Exam Neurological exam: Present: alert, oriented X3 - Psychiatric Psychiatric exam: Present: normal affect, normal mood - Skin Skin exam: Present: warm, dry, intact, normal color Course Course Narrative: Patient presenting with a few episodes of hemoptysis and increasing shortness breath. She is already on Xarelto for a DVT. Also has a history of COPD and CHF. Clinically, I do think she is in a CHF exacerbation. However, with her recent DVT. If her renal function will tolerate it. We will CTA her chest to evaluate for PE, although she is not hypotensive or overtly hypoxic. Vital Signs Temperature 97.9 F 03/26/17 15:53 Pulse Rate 79 03/26/17 15:53 Respiratory Rate 16 03/26/17 15:53 Blood Pressure 129/92 03/26/17 15:53 O2 Sat by Pulse Oximetry 92 03/26/17 15:53 Temperature 97.6 F 03/26/17 18:42 Pulse Rate 79 03/26/17 18:42 Respiratory Rate 16 03/26/17 18:42 Blood Pressure 155/95 03/26/17 18:42 O2 Sat by Pulse Oximetry 95 03/26/17 18:42 Oxygen Delivery Oxygen Delivery Nasal Cannula Medical Decision Making - Lab Data Result diagrams: 03/26/17 16:09 03/26/17 16:09 Lab Results 03/26/17 03/26/17 03/26/17 Range/Units 16:09 16:09 16:09 WBC 11.9 H (4.3-11.1) K/mcL RBC 4.34 (3.82-4.97) M/mcL Hgb 12.7 (11.5-15.4) g/dL Hct 40.4 (35.3-44.9) % MCV 93.1 (83.0-100.0) fL MCH 29.3 (28.0-33.3) pg MCHC 31.4 L (31.6-35.5) g/dL RDW 15.7 H (11.5-14.5) % Plt Count 175 (140-400) K/mcL MPV 11.3 (9.4-12.4) fL Immature Gran % 0.8 (0-4) % Seg Neutrophils % 75.8 % Lymphocytes % 14.8 % Monocytes % 7.2 % Eosinophils % 1.1 % Basophils % 0.3 % Neutrophils # 9.0 H (1.6-8.9) K/mcL Lymphocytes # 1.8 (0.6-4.6) K/mcL Monocytes # 0.9 (0.0-1.3) K/mcL Eosinophils # 0.1 (0.0-0.6) K/mcL Basophils # 0.0 (0.0-0.2) K/mcL PT (9.4-12.1) Seconds INR APTT (26.0-36.0) Seconds Sodium 136 (136-145) mEq/L Potassium 4.8 H (3.5-4.5) mEq/L Chloride 102 (98-109) mEq/L Carbon Dioxide 28 (19-29) mEq/L BUN 22 H (7-20) mg/dL Creatinine 1.31 H (0.57-1.11) mg/dL Est GFR ( Amer) 47 L (> 60) Est GFR (Non-Af Amer) 39 L (> 60) BUN/Creatinine Ratio 17 (6-26) Glucose 278 H (70-99) mg/dL Calculated Osmolality 295 (280-300) Lactic Acid 1.4 (0.5-2.2) mmol/L Calcium 9.9 (8.6-10.8) mg/dL Troponin I (0-0.03) ng/mL B-Natriuretic Peptide (0-100) pg/mL Urine Color (Yellow) Urine Clarity (Clear) Urine pH (5.0-8.0) pH Units Ur Specific [place] (1.010-1.025) Urine Protein (Neg-Trace) mg/dL Urine Glucose (UA) (Normal) mg/dL Urine Ketones (Negative) mg/dL Urine Blood (Negative) Urine Nitrite (Negative) Urine Bilirubin (Negative) Urine Urobilinogen (Normal) mg/dL Ur Leukocyte Esterase (Negative) Ur Culture Indicated? (NO) 03/26/17 03/26/17 03/26/17 Range/Units 16:09 16:09 16:09 WBC (4.3-11.1) K/mcL RBC (3.82-4.97) M/mcL Hgb (11.5-15.4) g/dL Hct (35.3-44.9) % MCV (83.0-100.0) fL MCH (28.0-33.3) pg MCHC (31.6-35.5) g/dL RDW (11.5-14.5) % Plt Count (140-400) K/mcL MPV (9.4-12.4) fL Immature Gran % (0-4) % Seg Neutrophils % % Lymphocytes % % Monocytes % % Eosinophils % % Basophils % % Neutrophils # (1.6-8.9) K/mcL Lymphocytes # (0.6-4.6) K/mcL Monocytes # (0.0-1.3) K/mcL Eosinophils # (0.0-0.6) K/mcL Basophils # (0.0-0.2) K/mcL PT 39.1 H (9.4-12.1) Seconds INR 3.5 APTT 38.2 H (26.0-36.0) Seconds Sodium (136-145) mEq/L Potassium (3.5-4.5) mEq/L Chloride (98-109) mEq/L Carbon Dioxide (19-29) mEq/L BUN (7-20) mg/dL Creatinine (0.57-1.11) mg/dL Est GFR ( Amer) (> 60) Est GFR (Non-Af Amer) (> 60) BUN/Creatinine Ratio (6-26) Glucose (70-99) mg/dL Calculated Osmolality (280-300) Lactic Acid (0.5-2.2) mmol/L Calcium (8.6-10.8) mg/dL Troponin I 0.02 (0-0.03) ng/mL B-Natriuretic Peptide 3239 H (0-100) pg/mL Urine Color (Yellow) Urine Clarity (Clear) Urine pH (5.0-8.0) pH Units Ur Specific [place] (1.010-1.025) Urine Protein (Neg-Trace) mg/dL Urine Glucose (UA) (Normal) mg/dL Urine Ketones (Negative) mg/dL Urine Blood (Negative) Urine Nitrite (Negative) Urine Bilirubin (Negative) Urine Urobilinogen (Normal) mg/dL Ur Leukocyte Esterase (Negative) Ur Culture Indicated? (NO) 03/26/17 Range/Units 16:40 WBC (4.3-11.1) K/mcL RBC (3.82-4.97) M/mcL Hgb (11.5-15.4) g/dL Hct (35.3-44.9) % MCV (83.0-100.0) fL MCH (28.0-33.3) pg MCHC (31.6-35.5) g/dL RDW (11.5-14.5) % Plt Count (140-400) K/mcL MPV (9.4-12.4) fL Immature Gran % (0-4) % Seg Neutrophils % % Lymphocytes % % Monocytes % % Eosinophils % % Basophils % % Neutrophils # (1.6-8.9) K/mcL Lymphocytes # (0.6-4.6) K/mcL Monocytes # (0.0-1.3) K/mcL Eosinophils # (0.0-0.6) K/mcL Basophils # (0.0-0.2) K/mcL PT (9.4-12.1) Seconds INR APTT (26.0-36.0) Seconds Sodium (136-145) mEq/L Potassium (3.5-4.5) mEq/L Chloride (98-109) mEq/L Carbon Dioxide (19-29) mEq/L BUN (7-20) mg/dL Creatinine (0.57-1.11) mg/dL Est GFR ( Amer) (> 60) Est GFR (Non-Af Amer) (> 60) BUN/Creatinine Ratio (6-26) Glucose (70-99) mg/dL Calculated Osmolality (280-300) Lactic Acid (0.5-2.2) mmol/L Calcium (8.6-10.8) mg/dL Troponin I (0-0.03) ng/mL B-Natriuretic Peptide (0-100) pg/mL Urine Color Yellow (Yellow) Urine Clarity Clear (Clear) Urine pH 6.5 (5.0-8.0) pH Units Ur Specific [place] 1.014 (1.010-1.025) Urine Protein Negative (Neg-Trace) mg/dL Urine Glucose (UA) Normal (Normal) mg/dL Urine Ketones Negative (Negative) mg/dL Urine Blood Negative (Negative) Urine Nitrite Negative (Negative) Urine Bilirubin Negative (Negative) Urine Urobilinogen Normal (Normal) mg/dL Ur Leukocyte Esterase Negative (Negative) Ur Culture Indicated? NO (NO) Attestation Statement - Attestation Attestation: I, Wilmar Mcmahon, examined this patient and my medical decision-making was reviewed with the HUMAN RESOURCES TRAINING MANAGER/PA/Advanced Practice Nurse/Resident Physician. I agree with the documented findings, disposition and treatment plan as described except to the extent set forth below. 77-year-old female presents to emergency Department with concerns of difficulty in breathing, chest pain and hemoptysis. Patient states she developed lip tinged sputum today in the summer had this before. Patient recently started Xarelto for treatment of a DVT within the past few days, denies taking extra of her medications. Patient recently treated for pneumonia within the past week. Patient reports dyspnea with exertion. Patient has normal troponin. BNP significantly elevated. PE is a possibility with hemoptysis however patient is not tachycardic or hypoxic or hypotensive. We are unable to obtain a CTA of her chest secondary to her GFR. It is much more likely that patient's hemoptysis is secondary to congestive heart failure. Patient will be treated with Lasix and admitted to the hospital for further care and evaluation of her dyspnea and hemoptysis.
[2017-03-26] MEDS ORDERED: Furosemide 40 MG/4 ML VIAL IVP ONE (17:36)
[2017-03-26] MEDS ORDERED: Naloxone 0.4 MG/ML INJ IVP PRN (19:38)
[2017-03-26] MEDS ORDERED: Nitroglycerin 0.4 MG TAB.SUBL SL PRN (19:41)
[2017-03-26] MEDS ORDERED: clonazePAM 0.5 MG TABLET PO PRN (19:41)
[2017-03-26] MEDS ORDERED: Dextrose Gel 15 GM PO PRN ×2 (20:20)
[2017-03-26] MEDS ORDERED: *HR* Dextrose 50 % in Water (Syg) 50 ML SYRINGE IVP PRN (20:20)
[2017-03-26] MEDS ORDERED: D5% in Water 1,000 ML IVC PRN (20:20)
--- NOTE | 2017-03-26 20:24 | Internal Med History&Physical ---
<Joelle Wolfe - Last Filed: 03/26/17 21:18> Date of Encounter: 03/26/17 Time of Encounter: 20:22 Assessment and Plan (1) Systolic CHF, acute Current visit: No Status: Acute 1 patient has been consuming increased shortness of breath despite the use of oxygen. Chest x-ray revealed vascular congestion BNP was 3000. We will give IV Lasix 40 mg daily 2 monitor intake and output and daily weights 3 Low sodium diet 4. Fluid Restriction (2) Hemoptysis Current visit: Yes Status: Acute 1 patient has been on Xarelto for approximately one week for DVT right lower leg. Today she had some blood-tinged sputum with clots. Hemoglobin is stable at 12.7 PTT 39.1 INR 3.5 PTT 30.2 we will hold Xarelto 2 we will initiate on standard dose heparin 3 monitor H&H 4 we will obtain VQ scan to rule out possible PE-pulmonary infarct (3) Sleep apnea Current visit: No Status: Chronic CPAP at night Qualifiers: Sleep apnea type: unspecified type Qualified Code(s): G47.30 - Sleep apnea , unspecified (4) Hypertension Current visit: No Status: Chronic 1 we will continue with Lasix and Coreg lisinopril opportunity to elevation in creatinine 2 low sodium diet Qualifiers: Hypertension type: essential hypertension Qualified Code(s): I10 - Essential (primary) hypertension (5) Diabetes mellitus type 2 in obese Current visit: No Status: Chronic 1 Accu-Cheks before meals at bedtime for sinus, insulin hold oral meds for now resumed upon discharge. 2 diabetic diet (6) NICM (nonischemic cardiomyopathy) Current visit: No Status: Chronic 1 continue with Lasix and Coreg will hold lisinopril for now resumed upon discharge-patient does have a pacemaker (7) Interstitial lung disease Current visit: No Status: Chronic 1 continue with oxygen titrated maintain SPO2 greater than 92% continue with bronchodilators (8) History of DVT (deep vein thrombosis) Current visit: Yes Status: Acute 1 presently on his Route toe we will hold for now due to hemoptysis (9) Acute on chronic renal insufficiency Current visit: Yes Status: Acute 1 creatinine is 1.3 on appears over the past month it has been around 1.1. Patient appears to be fluid overloaded. We will give IV Lasix and monitor creatinine closely. 2 we will avoid nephrotoxins-we will hold lisinopril for now as well as metformin 3 monitor intake and output daily weights Internal Medicine - H&P: HPI Chief complaint: Hemoptysis Admitted From: Emergency Dept Plans for Post Hospital Care: Home History of present illness: Ms. Griffin is a 77 year old female Past Med Surg Social Fam HX - Past Medical History Medical history: arthritis, cancer, cardiomyopathy, CHF, COPD, coronary artery disease, diabetes, GERD, hyperlipidemia, hypertension, malignancy, osteoporosis , renal disease, other Psychiatric history: anxiety, depression - Past Surgical History Surgical History: cancer surgery (Left breast lumpectomy), cataract (Bilateral cataract surgery with lens implants), hip replacement (Right hip replacement), orthopedic, other, pacemaker/AICD, other - Social History Smoking Status: Former smoker Smokeless Tobacco Status: No Alcohol use: none Drug use: none - Family History Father Living Status: Hx Family Cardiac Disorders: Yes Sister History Unknown: Yes Living Status: Hx Family Neurologic Disorders: Yes (Alzheimer's) Mother Adopted: No Family Member Ethnicity: Non- Living Status: Hx Family Cardiac Disorders: Yes Hx Family Respiratory Disorders: No Hx Family Cancer: No Hx Family GI Disorders: No Hx Family Endocrine Disorder: No Hx Family Neuromuscular Disorders: No Hx Family Neurologic Disorders: No Hx Family HEENT Disorders: No Hx Family Autoimmune Disorders: No Internal Medicine - H&P: Meds Carvedilol 12.5 mg PO BID #0 03/25/15 [History] Furosemide [Lasix] 60 mg PO DAILY #0 03/25/15 [History] Glimepiride [Amaryl] 2 mg PO QAM #0 03/25/15 [History] Nitroglycerin [Nitrostat] 0.4 mg SL Q5M PRN #0 03/25/15 [History] Omeprazole [PriLOSEC] 20 mg PO QAM #0 03/25/15 [History] Mirtazapine 30 mg PO HS 02/19/16 [History] Oxygen 4 l NS AD 02/19/16 [History] Potassium Chloride [Klor-Con Sprinkle] 10 meq PO HS 02/19/16 [History] Cyclobenzaprine HCl 5 mg PO HS 08/26/16 [History] Escitalopram [Lexapro] 10 mg PO QAM 08/26/16 [History] Folic Acid [FA-8] 0.8 mg PO DAILY 08/26/16 [History] Lisinopril [Zestril] 20 mg PO DAILY 08/26/16 [History] SitaGLIPtin [Januvia] 100 mg PO DAILY 08/26/16 [History] clonazePAM [Klonopin] 0.5 mg PO TID PRN 08/26/16 [History] Gabapentin [Neurontin] 100 mg PO TID #60 capsule 08/28/16 [Rx] Escitalopram Oxalate 5 mg PO QPM 01/17/17 [History] Magnesium Oxide [Magnesium] 500 mg PO DAILY 01/17/17 [History] Isosorbide MONOnitrate (24 HR) [Imdur] 30 mg PO DAILY #30 tab.er.24h 01/19/17 [ Rx] Atorvastatin [Lipitor] 10 mg PO HS tab 02/14/17 [Rx] Docusate [Colace] 100 mg PO BID PRN 02/14/17 [Rx] Polyethylene Glycol 3350 [MiraLAX] 17 gm PO DAILY 03/26/17 [History] Rivaroxaban [Xarelto] 20 mg PO DAILY 03/26/17 [History] 3 Allergy/AdvReac Type Severity Reaction Status Date / Time Amoxicillin Allergy Swelling Verified 01/17/17 17:21 of Lip/Tongue/Throat Sulfa (Sulfonamide Allergy Swelling Verified 01/17/17 17:21 Antibiotics) of Lip/Tongue/Throat acetaminophen [From Percocet] AdvReac Nausea Verified 01/17/17 17:21 citalopram [From Celexa] AdvReac Dizziness Verified 01/17/17 17:21 codeine AdvReac Nausea Verified 01/17/17 17:21 [From Tylenol-Codeine] epinephrine AdvReac Headache Verified 01/17/17 17:21 Oxycodone [From Percocet] AdvReac Nausea Verified 01/17/17 17:21 Penicillins [PCN] AdvReac Itching Verified 01/17/17 17:21 All Systems PM: A 10-system review of systems was performed and is negative for pertinent findings except as documented above in the HPI. - Constitutional Constitutional: no chills, no fever(s), no night sweats - EENT Eyes: no change in vision, no discharge, no pain, no photophobia - Cardiovascular Cardiovascular ROS IM: chest pain, dyspnea, edema, no diaphoresis, no lightheadedness, no palpitations, no syncope - Respiratory Respiratory: dyspnea, change in phlegm color - Genitourinary Genitourinary: no change in urinary stream, no dysuria, no flank pain, no hematuria - Neurological Neurological ROS: no confusion, no convulsions, no focal weakness, no numbness, no tingling, no tremor(s) - Hematologic/Lymphatic Hematologic/Lymphatic: no easy bruising - Constitutional Vitals: Temp Pulse Resp BP Pulse Ox 97.6 F 79 16 155/95 95 03/26/17 18:42 03/26/17 18:42 03/26/17 18:42 03/26/17 18:42 03/26/17 18:42 General appearance: Present: A&O X 3, answers questions appropriately - Head Head exam: Present: atraumatic, normocephalic - Eye Eye exam: Present: PERRL, conjuntiva pink, sclera anicteric Pupils: Present: PERRL - Neck Neck exam general surgery: Present: supple, trachea midline. Absent: lymphadenopathy - Respiratory Respiratory exam: Present: decreased breath sounds, rales. Absent: accessory muscle use, rhonchi, wheezes - Cardiovascular Cardiovascular exam: Present: RRR, +S1, +S2. Absent: diastolic murmur, gallop, rubs, systolic murmur - GI/Abdominal GI/Abdominal exam: Present: normal bowel sounds, soft, no peritoneal signs. Absent: distended, tenderness - Extremities Exam Extremities exam: Present: warm, radial pulses palpable and symmetrical. Absent : calf tenderness, cyanotic, pedal edema - Neurological Exam Neurological exam: Present: CN II-XII intact, oriented X3, no focal deficits. Absent: pronater drift, facial droop, speech deficit - Skin Skin exam: Present: dry, intact Internal Med - H&P Results - Labs CBC & Chem 7: 03/26/17 16:09 03/26/17 16:09 - Diagnostic Studies Other Images Additional comments: Chest X-Ray 03/26/17 15:50 IMPRESSION: Findings suggest congestive heart failure D/ / Prateek Melendez MD / Prateek Melendez MD Interpreting Provider: Prateek Melendez MD <Pankaj Salguero - Last Filed: 03/27/17 03:43> Date of Encounter: 03/26/17 Time of Encounter: 23:10 Internal Medicine - H&P: HPI History of present illness: Ms. Griffin is a 77 year old female who presented to ER with complaints of shortness of breath, productive cough with blood tinged sputum, and wheezing. She was recently discharged from [facility] after a hospital stay for pneumonia. She has been on Xarelto for ~ 2 weeks after having developed a DVT while in [facility]. She has interstitial lung disease and history of non-ischemic cardiomyopathy. She denies any fevers or chills, but she states her sputum has been more productive lately. She denies any gross hemoptysis. She has had some chest pain which she can not describe fully. Pain started at rest and has persisted off and on for a couple days. According to her last ECHO, her LVEF is ~ 30%. - EENT Nose, mouth and throat: no epistaxis, no nasal discharge, no sinus pressure, no sore throat - Cardiovascular Cardiovascular ROS IM: chest pain, dyspnea, edema - Respiratory Respiratory: dyspnea, hemoptysis (not gross; blood tinged sputum), chest congestion, excessive phlegm production, change in phlegm color - Gastrointestinal Gastrointestinal: no abdominal pain, no hematemesis, no hematochezia, no melena - Musculoskeletal Musculoskeletal ROS IM: no arthralgias, no back pain - Integumentary Integumentary IM: no rash, no jaundice - Psychiatric Psychiatric: anxiety, no depression - Endocrine Endocrine IM: no polydipsia, no polyuria - Allergic/Immunologic Allergic/Immunologic: wheezing, no GI upset with certain foods - Constitutional Vitals: Temp Pulse Resp BP Pulse Ox 97.7 F 89 18 137/90 90 03/26/17 23:30 03/26/17 23:30 03/26/17 23:30 03/26/17 23:30 03/26/17 23:30 General appearance: Present: mild distress, A&O X 3 - Head Head exam: Present: normal inspection - Eye Eye exam: Present: PERRL. Absent: scleral icterus Pupils: Present: normal accommodation - ENT ENT exam: Present: mucous membranes dry, normal exam - Neck Neck exam general surgery: Present: supple - Respiratory Respiratory exam: Present: prolonged expiratory phase, rales, respiratory distress (mild), wheezes. Absent: chest wall tenderness, rhonchi - Cardiovascular Cardiovascular exam: Present: RRR, +S1, +S2. Absent: diastolic murmur, systolic murmur - GI/Abdominal GI/Abdominal exam: Present: soft. Absent: tenderness - Extremities Exam Extremities exam: Absent: cyanotic, pedal edema - Back Exam Back exam: Present: normal inspection. Absent: CVA tenderness (L), CVA tenderness (R) - Psychiatric Psychiatric exam: Present: anxious. Absent: depressed Internal Med - H&P Results - Labs CBC & Chem 7: 03/26/17 16:09 03/26/17 16:09 Labs: Cardiac Enzymes 03/26/17 Range/Units 22:19 Troponin I 0.03 (0-0.03) ng/mL - Diagnostic Studies Chest x-ray Status: image reviewed by me (consistent with CHF) - Attending Attestation I discussed the patient [place], PMH, ROS, lab data, and exam findings with Joelle Wolfe CNP. I then saw and examined patient independently as well. Patient has recent development of DVT and now has CP, increased SOB, and blood-tinged sputum. She has some wheezing and increased productive cough. My clinical suspicion for PE is elevated. She also likely has CHF despite no significant peripheral edema. We will diurese her gingerly, initiate heparin gtt empirically, and proceed with either V/Q to CTA scan to rule out PE. Additionally, I will start steroids, frequent aerosols, and empiric antibiotics for COPD flare. Other than my comments above and noted exam findings, I agree with Joelle's assessment and plan.
[2017-03-26] MEDS ORDERED: *HR* Heparin 5,000 UNIT/ML VIAL IVP PRN ×2 (21:13)
[2017-03-26] MEDS: Gabapentin 100 MG CAPSULE PO SCH (21:46)
[2017-03-26] MEDS: Mirtazapine 15 MG TABLET PO SCH (21:49)
[2017-03-26] MEDS ORDERED: Insulin LISPRO 300 UNITS/3 ML VIAL SQ ONE (21:53)
[2017-03-26] MEDS: Heparin 25,000 UNIT/500 ML D5W 25,000 UNIT/500 ML MLS IVC SCH (23:36)
[2017-03-26] MEDS: Insulin LISPRO 300 UNITS/3 ML VIAL SQ SCH (23:37)
[2017-03-27] MEDS ORDERED: methylPREDNISolone 125 MG/2 ML VIAL IVP SCH
[2017-03-27] MEDS: Acetaminophen 325 MG TABLET PO PRN ×2 (01:35→17:12)
[2017-03-27] MEDS ORDERED: Albuterol 2.5 MG/3 ML NEBULIZER IH PRN (03:43)
[2017-03-27 06:47] LABS: Basophils # 0.1 K/mcL (0.0-0.2); Basophils % 0.4 %; Eosinophils % 0.2 %; Hemoglobin 13.4 g/dL (11.5-15.4); Immature Granulocytes % 0.9 % (0-4); Lymphocytes # 1.1 K/mcL (0.6-4.6); Lymphocytes % 6.7 %; Mean Corpuscular HGB Conc 31.2 g/dL (31.6-35.5); Mean Corpuscular Volume 96.4 fL (83.0-100.0); Mean Platelet Volume 11.2 fL (9.4-12.4); Monocytes # 0.3 K/mcL (0.0-1.3); Monocytes % 1.6 %; Neutrophils # 15.3 K/mcL (1.6-8.9); Platelet Count 175 K/mcL (140-400); Red Blood Count 4.46 M/mcL (3.82-4.97); Red Cell Distribution Width 16.2 % (11.5-14.5); Segmented Neutrophils % 90.2 %
[2017-03-27 06:55] LABS: Calcium 10.1 mg/dL (8.6-10.8); Potassium 4.8 mEq/L (3.5-4.5)
[2017-03-27] MEDS: Ipratropium/Albuterol Neb 3 ML IH SCH ×4 (07:36→22:29)
--- NOTE | 2017-03-27 08:16 | Internal Med Progress Note ---
<Nuria Haley - Last Filed: 03/27/17 16:00> Date of Encounter: 03/27/17 Time of Encounter: 08:16 - Assessment and plan (1) Congestive heart failure Current Visit: No Status: Chronic Assessment and plan: congestive heart failure, with an ejection fraction as low as 15%. X-ray suggestive of congestive heart failure, BNP of 3000 Will Continue fluid restriction and low sodium diet and Lasix PO (prefer PO vs IV) Qualifiers: Congestive heart failure type: systolic Congestive heart failure chronicity : chronic Qualified Code(s): I50.22 - Chronic systolic (congestive) heart failure (2) ALLYSON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 Current Visit: No Status: Chronic Assessment and plan: Pt SOB improved with Duoneb AM Continue medical management for COPD (3) History of DVT (deep vein thrombosis) Current Visit: Yes Status: Acute Assessment and plan: Was on Xarelto Pt now refusing anticoagulation options (4) Hemoptysis Current Visit: Yes Status: Acute Assessment and plan: Presented, proceeded with rule out PE, remained hemodynamically stable on floor Minimum Well Score of 4 CT Angio contraindicated due to renal dysfunction Pt's condition not amenable to V/Q scan ABG resulted in AM with increased A-a gradient However, pt refuses anticoagulation options. Discusses risk and benefits. Palliative on consults (5) Goals of care, counseling/discussion Current Visit: Yes Status: Acute Assessment and plan: Palliative on consult, appreciate rec - Subjective Interval history: SOB in AM. Pt says she does not "want to be near Xarelto". Pleasant in conversation. Per nurse communication, patient did not want IVs placed. PM: Resident MD spoke individually with patient regarding risks of bleeding and benefits of anticoagulation. We discussed anticoagulation option including oral options. Pt says that "I do no want either intervention." Explained risk of additional DVT, PE and risk of , to which patient answered "I do not want anything between me and the Lord". She further verbalized understanding of choice with subsequent meeting with Dr. Montes De Oca. - Constitutional Vitals: Temp Pulse Resp BP Pulse Ox 97.4 F L 87 21 138/80 92 03/27/17 06:56 03/27/17 06:56 03/27/17 06:56 03/27/17 06:56 03/27/17 06:56 General appearance: Present: cooperative, mild distress, A&O X 3, pleasant, answers questions appropriately (alert to situation) - Head Head exam: Present: atraumatic, normocephalic - Respiratory Respiratory exam: Present: accessory muscle use, CTAB. Absent: chest wall tenderness, rales, rhonchi, wheezes Additional comments: mild, when speaking at baseline - Cardiovascular Cardiovascular exam: Present: distant heart sounds, RRR, +S1, +S2. Absent: gallop, rubs - GI/Abdominal GI/Abdominal exam: Present: normal bowel sounds, soft, no peritoneal signs. Absent: distended, tenderness - Expanded Lower Extremities Exam Lower Leg exam: Absent: erythema (+1 pitting edema, more pronounced on R vs. L) , tenderness Internal Medicine: Result - Labs CBC & Chem 7: 03/27/17 06:35 03/27/17 06:35 Labs: Short CBC 03/27/17 Range/Units 06:35 WBC 17.0 H (4.3-11.1) K/mcL Hgb 13.4 (11.5-15.4) g/dL Hct 43.0 (35.3-44.9) % Plt Count 175 (140-400) K/mcL Neutrophils # 15.3 H (1.6-8.9) K/mcL BMP 03/27/17 06:35 Sodium 137 Potassium 4.8 H Chloride 100 Carbon Dioxide 28 BUN 23 H Creatinine 1.42 H Glucose 302 H Calcium 10.1 Cardiac Enzymes 03/26/17 03/27/17 Range/Units 22:19 06:35 Troponin I 0.03 0.02 (0-0.03) ng/mL - ABG Interpretation ABG results: ABG ABG pH 7.37 pH Units (7.32-7.45) 03/27/17 09:44 ABG pCO2 48 mmHg (35-45) H 03/27/17 09:44 ABG pO2 53 mmHg (85-104) L 03/27/17 09:44 ABG O2 Saturation 86 % (95-98) L 03/27/17 09:44 PT/INR, D-dimer PT 39.1 Seconds (9.4-12.1) H 03/26/17 16:09 Additional comments: Increased A-a gradient, from expected by age Consult Discharge Plan - Plan Referrals: Waylon Cobb Jr, MD [Primary Care Provider] - (Web requested 03/27/17) <Mike Costello P - Last Filed: 03/27/17 17:46> Date of Encounter: 03/27/17 - Constitutional Vitals: Temp Pulse Resp BP Pulse Ox 97.7 F 94 19 154/83 92 03/27/17 17:13 03/27/17 17:13 03/27/17 17:13 03/27/17 17:13 03/27/17 17:13 Internal Medicine: Result - Labs CBC & Chem 7: 03/27/17 06:35 03/27/17 06:35 Labs: Short CBC 03/27/17 Range/Units 06:35 WBC 17.0 H (4.3-11.1) K/mcL Hgb 13.4 (11.5-15.4) g/dL Hct 43.0 (35.3-44.9) % Plt Count 175 (140-400) K/mcL Neutrophils # 15.3 H (1.6-8.9) K/mcL BMP 03/27/17 06:35 Sodium 137 Potassium 4.8 H Chloride 100 Carbon Dioxide 28 BUN 23 H Creatinine 1.42 H Glucose 302 H Calcium 10.1 Cardiac Enzymes 03/26/17 03/27/17 Range/Units 22:19 06:35 Troponin I 0.03 0.02 (0-0.03) ng/mL - ABG Interpretation ABG results: ABG ABG pH 7.37 pH Units (7.32-7.45) 03/27/17 09:44 ABG pCO2 48 mmHg (35-45) H 03/27/17 09:44 ABG pO2 53 mmHg (85-104) L 03/27/17 09:44 ABG O2 Saturation 86 % (95-98) L 03/27/17 09:44 PT/INR, D-dimer PT 39.1 Seconds (9.4-12.1) H 03/26/17 16:09 - Attending Attestation I examined this patient and my medical decision-making was reviewed with the Resident Physician. I agree with the documented findings, disposition and treatment plan as described except to the extent set forth below. Appreciated palliative care evaluation and we will follow patient's wishes
[2017-03-27] MEDS ORDERED: Furosemide 40 MG/4 ML VIAL IVP SCH (09:00)
[2017-03-27] MEDS ORDERED: levoFLOXacin 500 MG TABLET PO SCH (09:00)
[2017-03-27] MEDS: Magnesium Oxide 400 MG TABLET PO SCH (09:39)
[2017-03-27] MEDS: Gabapentin 100 MG CAPSULE PO SCH ×3 (09:39→21:53)
[2017-03-27] MEDS: Folic Acid 1 MG TABLET PO SCH (09:39)
[2017-03-27] MEDS: Isosorbide MONOnitrate (24 HR) 30 MG TAB.ER.24H PO SCH (09:39)
[2017-03-27] MEDS: Insulin LISPRO 300 UNITS/3 ML VIAL SQ SCH ×4 (09:41→21:57)
[2017-03-27 09:55] LABS: ABG Base Excess 1.7 mEq/L (-2.0 to 3.0); ABG HCO3 28 mEq/L (21-27); ABG Oxygen Saturation 86 % (95-98); ABG PCO2 48 mmHg (35-45); ABG PH 7.37 pH Units (7.32-7.45); ABG PO2 53 mmHg (85-104); ABG TCO2 29.2 mEq/L (20-26); Blood Gas Liter Flow 4 L/MIN
[2017-03-27] MEDS: Furosemide 40 MG TABLET PO SCH ×2 (11:38→17:11)
[2017-03-27] MEDS: predniSONE 20 MG TABLET PO SCH (11:39)
[2017-03-27] MEDS: Heparin 25,000 UNIT/500 ML D5W 25,000 UNIT/500 ML MLS IVC SCH (14:54)
--- NOTE | 2017-03-27 15:27 | Palliative - Consult Note ---
Date of Encounter: 03/27/17 Time of Encounter: 15:00 - Assessment and Plan (1) Congestive heart failure Current Visit: Yes Status: Acute Assessment and plan: The patient has a history of congestive heart failure, with an ejection fraction as low as 15%. X-ray shows congestion and BNP of 3000 team is treating with fluid restriction and low sodium diet and IV Lasix. Plan per hospitalist team She does have a history of an ICD. It has been turned off. Qualifiers: Congestive heart failure type: systolic Congestive heart failure chronicity : acute on chronic Qualified Code(s): I50.23 - Acute on chronic systolic ( congestive) heart failure (2) Goals of care, counseling/discussion Current Visit: Yes Status: Acute Assessment and plan: Patient already has CODE STATUS DNR comfort care. He is short of breath at rest she has no capability of getting up and getting around because of severe shortness of breath. His been ongoing for quite some time. She does have an ejection fraction this been reported as low as 15% and does have her ICD in place. Patient states this has been shut off and she does not wish to go off any further she wishes to have comfort care only. We will talk to cardiology about aching sure it shut off. Agent identifies her is her medical power of shareholder and she has done advanced directives. Ears that she is associated with [facility] health and therefore probably was within [facility]. Check into this tomorrow. (3) Hemoptysis Current Visit: Yes Status: Acute Assessment and plan: Patient requests holding of all anticoagulants at this time. Treatment team is planning on holding old holding anticoagulants. (4) Dyspnea Current Visit: No Status: Acute Assessment and plan: Treatment for the dyspnea will be. Qualifiers: Dyspnea type: shortness of breath Qualified Code(s): R06.02 - Shortness of breath; R06.00 - Dyspnea, unspecified; R06.01 - Orthopnea Palliative-CN HPI - Data of Consult Requesting Physician: Mike Costello MD Primary Care Provider: Waylon Cobb Jr, MD - Consult Narrative History of present illness: Ms. Griffin is a 77 year old female Patient has a history of CHF, as well as a history of the OPD coronary artery disease and cardiomyopathy. She also has a history of left breast cancer which was treated with lumpectomy. Undergone a right hip replacement and has a pacemaker ICD in place. She states that the ICD has been turned off. Patient was recently diagnosed with a DVT in her leg, she was started on Xarelto. Since that time the patient has developed hemoptysis and this concerned her. She came in on account of the shortness of breath continuing and the hemoptysis. She wishes to be off all anticoagulants and she wishes for comfort care only at this time. CC: Mike Costello MD Shortness of breath, hemoptysis Past Med Surg Social Fam HX - Past Medical History Medical history: arthritis, cancer, cardiomyopathy, CHF, COPD, coronary artery disease, diabetes, GERD, hyperlipidemia, hypertension, malignancy, osteoporosis , renal disease, other Psychiatric history: anxiety, depression - Past Surgical History Surgical History: cancer surgery (Left breast lumpectomy), cataract (Bilateral cataract surgery with lens implants), hip replacement (Right hip replacement), orthopedic, other, pacemaker/AICD, other - Social History Smoking Status: Former smoker Smokeless Tobacco Status: No Alcohol use: none Drug use: none - Family History Father Living Status: Hx Family Cardiac Disorders: Yes Sister History Unknown: Yes Living Status: Hx Family Neurologic Disorders: Yes (Alzheimer's) Mother Adopted: No Family Member Ethnicity: Non- Living Status: Hx Family Cardiac Disorders: Yes Hx Family Respiratory Disorders: No Hx Family Cancer: No Hx Family GI Disorders: No Hx Family Endocrine Disorder: No Hx Family Neuromuscular Disorders: No Hx Family Neurologic Disorders: No Hx Family HEENT Disorders: No Hx Family Autoimmune Disorders: No Medications and Allergies Carvedilol 12.5 mg PO BID #0 03/25/15 [History] Furosemide [Lasix] 60 mg PO DAILY #0 03/25/15 [History] Glimepiride [Amaryl] 2 mg PO QAM #0 03/25/15 [History] Nitroglycerin [Nitrostat] 0.4 mg SL Q5M PRN #0 03/25/15 [History] Omeprazole [PriLOSEC] 20 mg PO QAM #0 03/25/15 [History] Mirtazapine 30 mg PO HS 02/19/16 [History] Oxygen 4 l NS AD 02/19/16 [History] Potassium Chloride [Klor-Con Sprinkle] 10 meq PO HS 02/19/16 [History] Cyclobenzaprine HCl 5 mg PO HS 08/26/16 [History] Escitalopram [Lexapro] 10 mg PO QAM 08/26/16 [History] Folic Acid [FA-8] 0.8 mg PO DAILY 08/26/16 [History] Lisinopril [Zestril] 20 mg PO DAILY 08/26/16 [History] SitaGLIPtin [Januvia] 100 mg PO DAILY 08/26/16 [History] clonazePAM [Klonopin] 0.5 mg PO TID PRN 08/26/16 [History] Gabapentin [Neurontin] 100 mg PO TID #60 capsule 08/28/16 [Rx] Escitalopram Oxalate 5 mg PO QPM 01/17/17 [History] Magnesium Oxide [Magnesium] 500 mg PO DAILY 01/17/17 [History] Isosorbide MONOnitrate (24 HR) [Imdur] 30 mg PO DAILY #30 tab.er.24h 01/19/17 [ Rx] Atorvastatin [Lipitor] 10 mg PO HS tab 02/14/17 [Rx] Docusate [Colace] 100 mg PO BID PRN 02/14/17 [Rx] Polyethylene Glycol 3350 [MiraLAX] 17 gm PO DAILY 03/26/17 [History] Rivaroxaban [Xarelto] 20 mg PO DAILY 03/26/17 [History] 3 Allergy/AdvReac Type Severity Reaction Status Date / Time Amoxicillin Allergy Swelling Verified 01/17/17 17:21 of Lip/Tongue/Throat Sulfa (Sulfonamide Allergy Swelling Verified 01/17/17 17:21 Antibiotics) of Lip/Tongue/Throat acetaminophen [From Percocet] AdvReac Nausea Verified 01/17/17 17:21 citalopram [From Celexa] AdvReac Dizziness Verified 01/17/17 17:21 codeine AdvReac Nausea Verified 01/17/17 17:21 [From Tylenol-Codeine] epinephrine AdvReac Headache Verified 01/17/17 17:21 Oxycodone [From Percocet] AdvReac Nausea Verified 01/17/17 17:21 Penicillins [PCN] AdvReac Itching Verified 01/17/17 17:21 - Constitutional Constitutional ROS PAL: no chills, no fever(s) - EENT Eyes: no discharge, no pain Ears: no ear discharge, no ear pain Ears, nose, mouth, throat: no mouth pain, no nasal congestion, no nasal discharge - Cardiovascular Cardiovascular ROS: chest pain, dyspnea on exertion, edema, leg edema - Respiratory Respiratory: cough, dyspnea, change in phlegm color - Gastrointestinal Gastrointestinal: no constipation, no diarrhea, no nausea, no vomiting - Genitourinary Palliative ROS female: no urinary frequency, no urinary hesitancy, no urinary incontinence - Musculoskeletal Musculoskeletal ROS IM: no muscle weakness, no myalgias, no neck pain - Integumentary ROS Integumentary: no skin ulcer, no sores, no wounds - Neurological Neurological ROS: no behavioral changes, no dizziness, no focal weakness - Psychiatric Psychiatric general PM: no confusion, no homicidal ideation, no hopelessness, no irritability - Endocrine Additional comments: Positive for diabetes Palliative Care-Exam - Constitutional Vitals: Temp Pulse Resp BP Pulse Ox 98.0 F 82 22 136/78 91 03/27/17 10:00 03/27/17 10:00 03/27/17 15:20 03/27/17 10:00 03/27/17 15:20 General appearance: Present: mild distress (Secondary to shortness breath) - Head Head Exam: Present: atraumatic, normal inspection - Eye Eye exam: Present: EOMI, PERRL - ENT ENT exam: Present: mucous membranes moist - Respiratory Respiratory exam: Present: decreased breath sounds, rales - Cardiovascular Cardiovascular exam: Present: RRR - GI/Abdominal Exam GI/Abdominal exam: Present: normal bowel sounds, soft. Absent: tenderness - Extremities Exam Extremities exam: Present: pedal edema. Absent: normal inspection, tenderness - Neurological Exam Neurological exam: Present: alert, oriented X3 - Psychiatric Psychiatric exam: Present: normal affect, normal mood. Absent: agitated, anxious - Skin Skin exam: Present: dry, warm Internal Medicine - CN: Reslt - Labs CBC & Chem 7: 03/27/17 06:35 03/27/17 06:35 Labs: Short CBC 03/27/17 Range/Units 06:35 WBC 17.0 H (4.3-11.1) K/mcL Hgb 13.4 (11.5-15.4) g/dL Hct 43.0 (35.3-44.9) % Plt Count 175 (140-400) K/mcL Neutrophils # 15.3 H (1.6-8.9) K/mcL BMP 03/27/17 06:35 Sodium 137 Potassium 4.8 H Chloride 100 Carbon Dioxide 28 BUN 23 H Creatinine 1.42 H Glucose 302 H Calcium 10.1 Cardiac Enzymes 03/26/17 03/27/17 Range/Units 22:19 06:35 Troponin I 0.03 0.02 (0-0.03) ng/mL - ABG Interpretation ABG results: ABG ABG pH 7.37 pH Units (7.32-7.45) 03/27/17 09:44 ABG pCO2 48 mmHg (35-45) H 03/27/17 09:44 ABG pO2 53 mmHg (85-104) L 03/27/17 09:44 ABG O2 Saturation 86 % (95-98) L 03/27/17 09:44 PT/INR, D-dimer PT 39.1 Seconds (9.4-12.1) H 03/26/17 16:09 Consult Discharge Plan - Plan Referrals: Waylon Cobb Jr, MD [Primary Care Provider] - (Web requested 03/27/17) Palliative Quality Palliative Quality: Screen for Code Status: Yes, Screen for Goals of Care: Yes, Screen for Pain: Yes, If Pain Regimen Started, Initiate Bowel Regimen: Yes, Screen for Nausea/Vomitting: Yes
[2017-03-27] MEDS: Mirtazapine 15 MG TABLET PO SCH (21:53)
[2017-03-28 05:15] LABS: Basophils % 0.1 %; Eosinophils % 0.2 %; Hematocrit 39.8 % (35.3-44.9); Hemoglobin 12.6 g/dL (11.5-15.4); Immature Granulocytes % 0.7 % (0-4); Lymphocytes # 2.1 K/mcL (0.6-4.6); Lymphocytes % 12.7 %; Mean Corpuscular HGB Conc 31.7 g/dL (31.6-35.5); Mean Corpuscular Hemoglobin 29.1 pg (28.0-33.3); Mean Corpuscular Volume 91.9 fL (83.0-100.0); Mean Platelet Volume 11.4 fL (9.4-12.4); Monocytes # 1.4 K/mcL (0.0-1.3); Monocytes % 8.5 %; Neutrophils # 12.5 K/mcL (1.6-8.9); Platelet Count 163 K/mcL (140-400); Red Blood Count 4.33 M/mcL (3.82-4.97); Red Cell Distribution Width 15.9 % (11.5-14.5); Segmented Neutrophils % 77.8 %
[2017-03-28 05:34] LABS: Calcium 9.9 mg/dL (8.6-10.8); Potassium 4.1 mEq/L (3.5-4.5)
[2017-03-28] MEDS: Ipratropium/Albuterol Neb 3 ML IH SCH ×3 (06:22→16:02)
[2017-03-28] MEDS: Acetaminophen 325 MG TABLET PO PRN (08:22)
[2017-03-28] MEDS: predniSONE 20 MG TABLET PO SCH (08:23)
[2017-03-28] MEDS: Magnesium Oxide 400 MG TABLET PO SCH (08:23)
[2017-03-28] MEDS: Gabapentin 100 MG CAPSULE PO SCH ×2 (08:23→16:19)
[2017-03-28] MEDS: Isosorbide MONOnitrate (24 HR) 30 MG TAB.ER.24H PO SCH (08:24)
[2017-03-28] MEDS: Folic Acid 1 MG TABLET PO SCH (08:24)
[2017-03-28] MEDS: Furosemide 40 MG TABLET PO SCH ×2 (08:24→16:19)
[2017-03-28] MEDS: Insulin LISPRO 300 UNITS/3 ML VIAL SQ SCH ×3 (08:24→16:19)
[2017-03-28] MEDS ORDERED: levoFLOXacin 250 MG TABLET PO SCH (09:00)
--- NOTE | 2017-03-28 10:18 | Palliative Progress Note ---
Date of Encounter: 03/28/17 Time of Encounter: :15 - Assessment and plan (1) Congestive heart failure Current Visit: Yes Status: Acute Assessment and plan: Responding to treatment, patient does feel better today plan per hospitalist team Qualifiers: Congestive heart failure type: systolic Congestive heart failure chronicity : acute on chronic Qualified Code(s): I50.23 - Acute on chronic systolic ( congestive) heart failure (2) Goals of care, counseling/discussion Current Visit: Yes Status: Acute Assessment and plan: The patient continues to endorse comfort care, is considering going back in the hospice she already has in [facility]. The meeting today at about 11:15 11: 30. Discuss further with social work. (3) Hemoptysis Current Visit: Yes Status: Acute Assessment and plan: Patient has not noticed any further hemoptysis. H&H are stable. (4) Dyspnea Current Visit: No Status: Acute Assessment and plan: Getting better, CPAP makes a lot of difference for her. Plan per hospitalist team. Qualifiers: Dyspnea type: shortness of breath Qualified Code(s): R06.02 - Shortness of breath; R06.00 - Dyspnea, unspecified; R06.01 - Orthopnea - Time Spent With Patient Total time spent is greater than 50% in coordination of care (as documented) at patient's floor/unit and/or counseling patient: - Subjective Interval history: Breathing much better this morning CPAP is really helping, so states that she feels quite gassy. Otherwise has no complaints. Expecting family to be here between 11 11:30 requests a meeting at that time. - Constitutional Vitals: Abnormal lab results WBC 16.1 K/mcL (4.3-11.1) H 03/28/17 05:08 RDW 15.9 % (11.5-14.5) H 03/28/17 05:08 Neutrophils # 12.5 K/mcL (1.6-8.9) H 03/28/17 05:08 Monocytes # 1.4 K/mcL (0.0-1.3) H 03/28/17 05:08 PT 39.1 Seconds (9.4-12.1) H 03/26/17 16:09 ABG pCO2 48 mmHg (35-45) H 03/27/17 09:44 ABG pO2 53 mmHg (85-104) L 03/27/17 09:44 ABG HCO3 28 mEq/L (21-27) H 03/27/17 09:44 ABG Total CO2 29.2 mEq/L (20-26) H 03/27/17 09:44 ABG O2 Saturation 86 % (95-98) L 03/27/17 09:44 BUN 26 mg/dL (7-20) H 03/28/17 05:08 Creatinine 1.17 mg/dL (0.57-1.11) H 03/28/17 05:08 Est GFR ( Amer) 54 (> 60) L 03/28/17 05:08 Est GFR (Non-Af Amer) 45 (> 60) L 03/28/17 05:08 Glucose 182 mg/dL (70-99) H 03/28/17 05:08 POC Glucose 189 (58-89) H 03/28/17 07:57 B-Natriuretic Peptide 3239 pg/mL (0-100) H 03/26/17 16:09 General appearance: Present: no acute distress - Head Head exam: Present: atraumatic, normal inspection - Eye Eye exam: Present: normal appearance - ENT ENT exam: Present: mucous membranes moist - Respiratory Respiratory exam: Present: decreased breath sounds - Cardiovascular Cardiovascular exam: Present: RRR - GI/Abdominal GI/Abdominal exam: Present: normal bowel sounds, soft. Absent: tenderness - Extremities Exam Extremities exam: Present: pedal edema. Absent: tenderness - Neurological Exam Neurological exam: Present: alert, oriented X3 - Psychiatric Psychiatric exam: Present: normal affect, normal mood. Absent: agitated, anxious - Skin Skin exam: Present: dry, warm Palliative Quality Palliative Quality: Screen for Code Status: Yes, Screen for Goals of Care: Yes, Screen for Pain: Yes, If Pain Regimen Started, Initiate Bowel Regimen: Yes, Screen for Nausea/Vomitting: Yes - Labs CBC & Chem 7: 03/28/17 05:08 03/28/17 05:08 Labs: Laboratory Results - last 24 hr 03/26/17 03/27/17 03/27/17 21:18 07:07 11:28 WBC RBC Hgb Hct MCV MCH MCHC RDW Plt Count MPV Immature Gran % Seg Neutrophils % Lymphocytes % Monocytes % Eosinophils % Basophils % Neutrophils # Lymphocytes # Monocytes # Eosinophils # Basophils # APTT Sodium Potassium Chloride Carbon Dioxide BUN Creatinine Est GFR ( Amer) Est GFR (Non-Af Amer) BUN/Creatinine Ratio Glucose POC Glucose 228 H 300 H 306 H Calculated Osmolality Calcium 03/27/17 03/27/17 03/27/17 13:28 17:08 19:09 WBC RBC Hgb Hct MCV MCH MCHC RDW Plt Count MPV Immature Gran % Seg Neutrophils % Lymphocytes % Monocytes % Eosinophils % Basophils % Neutrophils # Lymphocytes # Monocytes # Eosinophils # Basophils # APTT 33.5 Sodium Potassium Chloride Carbon Dioxide BUN Creatinine Est GFR ( Amer) Est GFR (Non-Af Amer) BUN/Creatinine Ratio Glucose POC Glucose 206 H 280 H Calculated Osmolality Calcium 03/28/17 03/28/17 03/28/17 05:08 05:08 07:57 WBC 16.1 H RBC 4.33 Hgb 12.6 Hct 39.8 MCV 91.9 MCH 29.1 MCHC 31.7 RDW 15.9 H Plt Count 163 MPV 11.4 Immature Gran % 0.7 Seg Neutrophils % 77.8 Lymphocytes % 12.7 Monocytes % 8.5 Eosinophils % 0.2 Basophils % 0.1 Neutrophils # 12.5 H Lymphocytes # 2.1 Monocytes # 1.4 H Eosinophils # 0.0 Basophils # 0.0 APTT Sodium 138 Potassium 4.1 Chloride 103 Carbon Dioxide 26 BUN 26 H Creatinine 1.17 H Est GFR ( Amer) 54 L Est GFR (Non-Af Amer) 45 L BUN/Creatinine Ratio 22 Glucose 182 H POC Glucose 189 H Calculated Osmolality 295 Calcium 9.9 - ABG Interpretation ABG results: ABG ABG pH 7.37 pH Units (7.32-7.45) 03/27/17 09:44 ABG pCO2 48 mmHg (35-45) H 03/27/17 09:44 ABG pO2 53 mmHg (85-104) L 03/27/17 09:44 ABG O2 Saturation 86 % (95-98) L 03/27/17 09:44 PT/INR, D-dimer PT 39.1 Seconds (9.4-12.1) H 03/26/17 16:09 Consult Discharge Plan - Plan Referrals: Waylon Cobb Jr, MD [Primary Care Provider] - (Web requested 03/27/17)
[2017-03-28 11:11] VITALS: BP 135/78
--- NOTE | 2017-03-28 13:28 | Event Note ---
Date of Encounter: 03/28/17 Time of Encounter: 11:30 long discussion with patdrewn and spouse re hh v hospice. she is deciding. she does not want anti coag, she wnats dnr cc but not surre about hospice as she has had it in the past, but did not feel she really needed it. sw is also involved. No palliative care coverage this weekend will follow up on Friday the patient is still here.
--- NOTE | 2017-03-28 16:06 | Physician Discharge Referral ---
Addendum entered and electronically signed by Nuria Haley MD 03/28/17 17:33: BANK CONSULTANT informed resident MD, PCP prefers to coordinate home health referral during provider follow-up appt. Informed patient. Original Note: <Nuria Haley - Last Filed: 03/28/17 16:04> Home Health/Hosp Referral Info Transfer to: Home Health Provider in Charge Post Discharge: PCP - Diagnosis (1) Hemoptysis Priority: Primary Status: Acute (2) ALLYSON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 Priority: Primary Status: Chronic (3) Congestive heart failure Priority: Primary Status: Chronic (4) History of DVT (deep vein thrombosis) Priority: Secondary Status: Acute (5) Goals of care, counseling/discussion Priority: Primary Status: Acute - Respiratory Orders Oxygen / L per min (4) Smoking Cessation: Smoking cessation has been advised. For more information, call the [place] Tobacco Quit Line at 5-839-HGQT-NOW. - Diet/Nutrition Diet/Nutrition Orders: Regular - Activity Activity Orders: Up ad [place] (as tolerated. Pt requires assistance moving) - Services Needed Following services are medically necessary services: Home Health Aide, Physical Therapy, Occupational Therapy - Transfer Medications Home Medications: Carvedilol 12.5 mg PO BID #0 03/25/15 [History] Furosemide [Lasix] 60 mg PO DAILY #0 03/25/15 [History] Glimepiride [Amaryl] 2 mg PO QAM #0 03/25/15 [History] Nitroglycerin [Nitrostat] 0.4 mg SL Q5M PRN #0 03/25/15 [History] Omeprazole [PriLOSEC] 20 mg PO QAM #0 03/25/15 [History] Mirtazapine 30 mg PO HS 02/19/16 [History] Oxygen 4 l NS AD 02/19/16 [History] Potassium Chloride [Klor-Con Sprinkle] 10 meq PO HS 02/19/16 [History] Cyclobenzaprine HCl 5 mg PO HS 08/26/16 [History] Escitalopram [Lexapro] 10 mg PO QAM 08/26/16 [History] Folic Acid [FA-8] 0.8 mg PO DAILY 08/26/16 [History] Lisinopril [Zestril] 20 mg PO DAILY 08/26/16 [History] SitaGLIPtin [Januvia] 100 mg PO DAILY 08/26/16 [History] clonazePAM [Klonopin] 0.5 mg PO TID PRN 08/26/16 [History] Gabapentin [Neurontin] 100 mg PO TID #60 capsule 08/28/16 [Rx] Escitalopram Oxalate 5 mg PO QPM 01/17/17 [History] Magnesium Oxide [Magnesium] 500 mg PO DAILY 01/17/17 [History] Isosorbide MONOnitrate (24 HR) [Imdur] 30 mg PO DAILY #30 tab.er.24h 01/19/17 [ Rx] Docusate [Colace] 100 mg PO BID PRN 02/14/17 [Rx] Polyethylene Glycol 3350 [MiraLAX] 17 gm PO DAILY 03/26/17 [History] Allergies/Adverse Reactions: 3 Allergy/AdvReac Type Severity Reaction Status Date / Time Amoxicillin Allergy Swelling Verified 01/17/17 17:21 of Lip/Tongue/Throat Sulfa (Sulfonamide Allergy Swelling Verified 01/17/17 17:21 Antibiotics) of Lip/Tongue/Throat acetaminophen [From Percocet] AdvReac Nausea Verified 01/17/17 17:21 citalopram [From Celexa] AdvReac Dizziness Verified 01/17/17 17:21 codeine AdvReac Nausea Verified 01/17/17 17:21 [From Tylenol-Codeine] epinephrine AdvReac Headache Verified 01/17/17 17:21 Oxycodone [From Percocet] AdvReac Nausea Verified 01/17/17 17:21 Penicillins [PCN] AdvReac Itching Verified 01/17/17 17:21 Certification: Further, I certify that my clinical findings support that this patient is homebound (i.e. absences from home require considerable and taxing effort and are for medical reasons or latter-day services or infrequently or short duration when for other reasons) because: Homebound Reason: Severity of cardiac or pulmonary status limits activity tolerance Attestation: My signature below is to certify that this patient is under my care and that I, or nurse practitioner, or a physician's nutrition assistant working with me, has a face-to -face encounter with this patient. <Mike Costello P - Last Filed: 03/28/17 17:46> - Respiratory Orders Smoking Cessation: Smoking cessation has been advised. For more information, call the [place] Tobacco Quit Line at 2-520-JYKU-NOW. Certification: Further, I certify that my clinical findings support that this patient is homebound (i.e. absences from home require considerable and taxing effort and are for medical reasons or latter-day services or infrequently or short duration when for other reasons) because: Attestation: My signature below is to certify that this patient is under my care and that I, or nurse practitioner, or a physician's nutrition assistant working with me, has a face-to -face encounter with this patient.
--- NOTE | 2017-03-28 16:23 | Discharge Summary ---
<Mike Costello P - Last Filed: 03/28/17 17:46> Date of Encounter: 03/28/17 - Discharge Medications Home Medications: Carvedilol 12.5 mg PO BID #0 03/25/15 [History] Furosemide [Lasix] 60 mg PO DAILY #0 03/25/15 [History] Glimepiride [Amaryl] 2 mg PO QAM #0 03/25/15 [History] Nitroglycerin [Nitrostat] 0.4 mg SL Q5M PRN #0 03/25/15 [History] Omeprazole [PriLOSEC] 20 mg PO QAM #0 03/25/15 [History] Mirtazapine 30 mg PO HS 02/19/16 [History] Oxygen 4 l NS AD 02/19/16 [History] Potassium Chloride [Klor-Con Sprinkle] 10 meq PO HS 02/19/16 [History] Cyclobenzaprine HCl 5 mg PO HS 08/26/16 [History] Escitalopram [Lexapro] 10 mg PO QAM 08/26/16 [History] Folic Acid [FA-8] 0.8 mg PO DAILY 08/26/16 [History] Lisinopril [Zestril] 20 mg PO DAILY 08/26/16 [History] SitaGLIPtin [Januvia] 100 mg PO DAILY 08/26/16 [History] clonazePAM [Klonopin] 0.5 mg PO TID PRN 08/26/16 [History] Gabapentin [Neurontin] 100 mg PO TID #60 capsule 08/28/16 [Rx] Escitalopram Oxalate 5 mg PO QPM 01/17/17 [History] Magnesium Oxide [Magnesium] 500 mg PO DAILY 01/17/17 [History] Isosorbide MONOnitrate (24 HR) [Imdur] 30 mg PO DAILY #30 tab.er.24h 01/19/17 [ Rx] Docusate [Colace] 100 mg PO BID PRN 02/14/17 [Rx] Polyethylene Glycol 3350 [MiraLAX] 17 gm PO DAILY 03/26/17 [History] Allergies/Adverse Reactions: 3 Allergy/AdvReac Type Severity Reaction Status Date / Time Amoxicillin Allergy Swelling Verified 01/17/17 17:21 of Lip/Tongue/Throat Sulfa (Sulfonamide Allergy Swelling Verified 01/17/17 17:21 Antibiotics) of Lip/Tongue/Throat acetaminophen [From Percocet] AdvReac Nausea Verified 01/17/17 17:21 citalopram [From Celexa] AdvReac Dizziness Verified 01/17/17 17:21 codeine AdvReac Nausea Verified 01/17/17 17:21 [From Tylenol-Codeine] epinephrine AdvReac Headache Verified 01/17/17 17:21 Oxycodone [From Percocet] AdvReac Nausea Verified 01/17/17 17:21 Penicillins [PCN] AdvReac Itching Verified 01/17/17 17:21 Date of admission: 03/26/17 21:12 Primary care physician: Waylon Cobb Jr, MD Consults: 03/27/17 14:46 Consult to Palliative Care [CONS] Routine Comment: Consulting Provider: Palliative Care Karmen Reason for Consult: Pt with hx of DVT, presenting w/ hemoptysis refusing anticoagulation Time Notified: 14:48 Call Completed: No - Patient Status Disposition: Home Health Service Condition: Good - Discharge Instructions Follow Up With: Wilmar Newman MD [Non-Partnered Physician] - (Web requested, facility will contact you for appointment) Additional Instructions: Please follow up with your primary care provider within 1 week, who will coordinate your referral to [facility] You have stated that you are refusing anticoagulation. We have discussed the risks and benefit of your choice. Please return to the emergency room in the event of increased shortness of breath, fever, chest pain or new onset of symptoms Hospital course: Ms. Griffin is a 77 year old female - Time Spent with Patient Total time spent providing and/or coordinating discharge services: - Constitutional Vitals: Temp Pulse Resp BP Pulse Ox 97.8 F 81 18 135/78 97 03/28/17 11:06 03/28/17 11:06 03/28/17 16:02 03/28/17 11:06 03/28/17 16:02 - Attending Attestation I examined this patient and my medical decision-making was reviewed with the Resident Physician. I agree with the documented findings, disposition and treatment plan as described except to the extent set forth below. Palliative care input appreciated. <Nuria Haley - Last Filed: 03/28/17 18:31> Date of Encounter: 03/28/17 Time of Encounter: 16:11 - Discharge Diagnosis (1) Hemoptysis Priority: Primary Status: Acute (2) ALLYSON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 Priority: Primary Status: Chronic (3) Congestive heart failure Priority: Primary Status: Chronic Qualifiers: Congestive heart failure type: systolic Congestive heart failure chronicity : chronic Qualified Code(s): I50.22 - Chronic systolic (congestive) heart failure (4) History of DVT (deep vein thrombosis) Priority: Primary Status: Chronic (5) Goals of care, counseling/discussion Priority: Primary Status: Chronic Date of admission: 03/26/17 21:12 Primary care physician: Waylon Cobb Jr, MD Consults: 03/27/17 14:46 Consult to Palliative Care [CONS] Routine Comment: Consulting Provider: Palliative Care Karmen Reason for Consult: Pt with hx of DVT, presenting w/ hemoptysis refusing anticoagulation Time Notified: 14:48 Call Completed: No Discharging clinician: Nuria Haley Anticipated date of discharge: 03/28/17 - Patient Status Overall status at discharge: patient is progressing back to baseline - Diet and Activity Activity: increase activity as tolerated, wear oxygen at all times Diet: advance to your usual diet Interval History: Pt had extensive discussion with palliative team. States she would like to go home today and continues to politely refuse anticoagulation. Hospital course: Ms. Griffin is a 77 year old female with a past medical history of DVT presenting for shortness of breath and hemoptysis. Pts complete history: cardiomyopathy, CHF, COPD, coronary artery disease, diabetes, GERD, hyperlipidemia, hypertension, malignancy and osteoporosis. Patient has been on Xarelto for approximately one week for DVT of right lower leg. Chest x-ray revealed vascular congestion. BNP on admit was 3000. CT angio and VQ scan was contraindicated due to patient's comorbidites. ABG was drawn. Hemoglobin was stable at 12.7. Patients intake and output and daily weights monitored. She was initiated on standard dose heparin. IV furosemide and solumedrol was converted to oral equivalent on hospital floors, as patient strongly preferred PO route and subsequently refused additional line for heparin. Patient was advised on risk and benefit of anticoagulation and continuously refused. Palliative consult was placed. Pt verbalized understanding of risk for refusal of treatment. Pt requested to be discharged following conversation with palliative care. - Time Spent with Patient Total time spent providing and/or coordinating discharge services: - Constitutional Vitals: Temp Pulse Resp BP Pulse Ox 97.8 F 81 20 135/78 96 03/28/17 11:06 03/28/17 11:06 03/28/17 11:06 03/28/17 11:06 03/28/17 11:06 General appearance: Present: cooperative, A&O X 3, pleasant, no acute distress, answers questions appropriately (alert to situation) - Head Head exam: Present: atraumatic, normocephalic - Respiratory Respiratory exam: Present: rales (R lower lobe). Absent: accessory muscle use, chest wall tenderness, respiratory distress Additional comments: on nasal cannula - Cardiovascular Cardiovascular exam: Present: RRR, +S1, +S2. Absent: rubs, tachycardia - GI/Abdominal GI/Abdominal exam: Present: normal bowel sounds, soft, no peritoneal signs. Absent: distended, tenderness - VTE Documentation of Mechanical Device: Intermittent pneumatic compression device
--- NOTE | 2017-03-31 17:31 | Electrocardiograph Report ---
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
== END 2017-03-28 18:15 | disposition home health service (06) | DRG 291 ==
LOC: 2ANU 15:47 → EMEROO 15:47 → 2ANU 18:20
PROVIDERS: ADMIT Internal Medicine; ATTEND Internal Medicine

== ENCOUNTER 2017-04-14 14:47 | Inpatient (IN) ==
[2017-04-14] MEDS ORDERED: Ipratropium/Albuterol Neb 3 ML IH ONE (14:55)
[2017-04-14] MEDS ORDERED: methylPREDNISolone 125 MG/2 ML VIAL IVP ONE (14:55)
--- NOTE | 2017-04-14 15:04 | Emergency Department Note ---
Disposition Clinical Impression: Difficulty breathing, Hypoxemia, Elevated troponin, Acute exacerbation of chronic obstructive airways disease Acute CHF (congestive heart failure) Qualifiers: Congestive heart failure type: systolic Qualified Code(s): I50.21 - Acute systolic (congestive) heart failure Disposition: Admitted As Inpatient Condition: Fair Time of Disposition: 17:26 SOB HPI - General Chief Complaint: ED Shortness of Breath/Dyspnea Stated Complaint: Difficulty Breathing/Low O2 sats Time Seen by Provider: 04/14/17 14:55 Source: EMS Limitations: age Nursing Notes Reviewed: Yes Vital Signs Reviewed: Yes - History of Present Illness Patient is a 77-year-old female brought in by EMS secondary to shortness of breath. Patient has a history of COPD and CHF and is DNR CCA. Patient states that this morning she started having shortness of breath and coughing. EMS states when he gave her breathing treatment she coughed up a pill. Concern for possible aspiration. Patient states she has no chest pain. Patient is on CPAP at home and patient states she has never been intubated - Related Data Home Medications Medication Instructions Recorded Confirmed Carvedilol 12.5 mg PO BID #0 03/25/15 04/14/17 Furosemide [Lasix] 60 mg PO DAILY #0 03/25/15 04/14/17 Glimepiride [Amaryl] 2 mg PO BID #0 03/25/15 04/14/17 Nitroglycerin [Nitrostat] 0.4 mg SL Q5M PRN #0 03/25/15 04/14/17 Omeprazole [PriLOSEC] 20 mg PO QAM #0 03/25/15 04/14/17 Mirtazapine 30 mg PO HS 02/19/16 04/14/17 Oxygen 4 l NS AD 02/19/16 04/14/17 Potassium Chloride [Klor-Con 10 meq PO HS 02/19/16 04/14/17 Sprinkle] Cyclobenzaprine HCl 5 mg PO HS 08/26/16 04/14/17 Escitalopram [Lexapro] 10 mg PO QAM 08/26/16 04/14/17 Folic Acid [FA-8] 0.8 mg PO DAILY 08/26/16 04/14/17 Lisinopril [Zestril] 20 mg PO DAILY 08/26/16 04/14/17 clonazePAM [Klonopin] 0.5 mg PO TID PRN 08/26/16 04/14/17 Escitalopram Oxalate 5 mg PO QPM 01/17/17 04/14/17 Magnesium Oxide [Magnesium] 500 mg PO DAILY 01/17/17 04/14/17 Polyethylene Glycol 3350 [MiraLAX] 17 gm PO DAILY 03/26/17 04/14/17 Ipratropium/Albuterol Neb [Duoneb] 3 ml IH Q6H PRN 04/14/17 04/14/17 Sitagliptin Phosphate [Januvia] 50 mg PO DAILY 04/14/17 04/14/17 Previous Rx's Medication Instructions Recorded Gabapentin [Neurontin] 100 mg PO TID #60 capsule 08/28/16 Isosorbide MONOnitrate (24 HR) 30 mg PO DAILY #30 tab.er.24h 01/19/17 [Imdur] Docusate [Colace] 100 mg PO BID PRN 02/14/17 Allergies Allergy/AdvReac Type Severity Reaction Status Date / Time Amoxicillin Allergy Swelling Verified 01/17/17 17:21 of Lip/Tongue/Throat Sulfa (Sulfonamide Allergy Swelling Verified 01/17/17 17:21 Antibiotics) of Lip/Tongue/Throat acetaminophen [From Percocet] AdvReac Nausea Verified 01/17/17 17:21 citalopram [From Celexa] AdvReac Dizziness Verified 01/17/17 17:21 codeine AdvReac Nausea Verified 01/17/17 17:21 [From Tylenol-Codeine] epinephrine AdvReac Headache Verified 01/17/17 17:21 Oxycodone [From Percocet] AdvReac Nausea Verified 01/17/17 17:21 Penicillins [PCN] AdvReac Itching Verified 01/17/17 17:21 All systems ED: reviewed and negative except as stated. Review of Systems: As Per HPI Constitutional: Reports: weakness. Denies: fever, chills Eyes: Denies: vision change ENT ED: Reports: congestion Cardiovascular: Denies: chest pain, palpitations Respiratory: Reports: cough, dyspnea. Denies: wheezes Gastrointestinal: Denies: abdominal pain, nausea, vomiting Genitourinary: Reports: dysuria Musculoskeletal: Denies: back pain, neck pain Integumentary: Denies: rash Neurological: Denies: headache Psychiatric: Reports: anxiety Past Medical History - Past Medical History Attestation: Yes The following information was validated with the patient. Source: patient Medical history: Reports: arthritis, cancer, cardiomyopathy, CHF, COPD, coronary artery disease, diabetes, GERD, hyperlipidemia, hypertension, malignancy, osteoporosis, renal disease, other Surgical history: Reports: cancer surgery (Left breast lumpectomy), cataract ( Bilateral cataract surgery with lens implants), hip replacement (Right hip replacement), orthopedic, other, pacemaker/AICD, other Psychiatric history: Reports: anxiety, depression PHOTO COLORER history: Reports: no PHOTO COLORER history - Social History Smoking Status: Former smoker Smokeless Tobacco Status: No Alcohol use: Reports: none Drug use: Reports: none Physical Exam Vital Signs Temperature 98.3 F 04/14/17 14:49 Pulse Rate 78 04/14/17 14:49 Respiratory Rate 24 04/14/17 14:49 Blood Pressure 124/104 04/14/17 14:49 O2 Sat by Pulse Oximetry 80 04/14/17 14:49 Temperature 98.3 F 04/14/17 14:49 Pulse Rate 78 04/14/17 14:49 Respiratory Rate 24 04/14/17 14:49 Blood Pressure 124/104 04/14/17 14:49 O2 Sat by Pulse Oximetry 80 04/14/17 14:49 Oxygen Delivery Oxygen Delivery Nasal Cannula Patient is a 77-year-old female who is alert and oriented 3 and having difficulty breathing. Patient is in acute distress. RT has been called start DuoNeb and BiPAP. Patient's O2 sat is 80 currently. Patient still mentating well. And has conversational dyspnea - General Limitations: no limitations, age General appearance: alert, in no apparent distress - Head Head exam: atraumatic, normocephalic, normal inspection - Eye Eye exam: Present: normal appearance, PERRL, EOMI, other (Patient has fluid collection underneath each eye) - Expanded Eye Exam Pupils: Left: reactive - ENT ENT exam: normal exam, normal oropharynx, mucous membranes moist - Expanded ENT Exam External ear exam: Present: normal external inspection Mouth exam: Present: normal external inspection Teeth exam: Present: normal inspection Throat exam: Present: normal inspection - Neck Neck exam: Present: normal inspection, full ROM, trachea midline - Chest Chest inspection: Present: normal inspection, symmetric chest wall rise. Absent : tenderness, rash - Respiratory Respiratory exam: Present: respiratory distress, other (Rales at bilateral lung bases). Absent: wheezes - Cardiovascular Cardiovascular exam: Present: regular rate, normal rhythm, normal heart sounds - Abdominal Exam Abdominal exam: Present: soft, Non-Tender. Absent: tenderness, distention, guarding, rebound, rigidity - Extremities Exam Extremities exam: Present: normal inspection, full ROM. Absent: tenderness, pedal edema - Expanded Upper Extremity Exam Shoulder exam: Present: normal inspection, full ROM Arm exam: Present: normal inspection, full ROM Elbow exam: Present: normal inspection, full ROM Forearm/Wrist exam: Present: normal inspection, full ROM Hand exam: Present: normal inspection, full ROM Vascular exam: Normal: capillary refill (Delayed), radial pulse - Expanded Lower Extremity Exam Hip/Pelvis exam: Present: normal inspection, full ROM Upper leg exam: Present: normal inspection, full ROM Knee exam: Present: normal inspection, full ROM Lower leg exam: Present: normal inspection, full ROM Ankle exam: Present: normal inspection, full ROM Foot/toe exam: Present: normal inspection, full ROM Neurovascular/Tendon exam: Absent: motor deficit, sensory deficit, tendon deficit - Back Exam Back exam: Present: normal inspection, full ROM. Absent: tenderness, CVA tenderness (R), CVA tenderness (L) - Neurological Exam Neurological exam: Present: alert, oriented X3 - Expanded Neurological Exam Patient oriented to: Present: person, place, time Coma Scale Eye Opening: Spontaneous Coma Scale Motor Response: Obeys Commands Coma Scale Verbal Response: Oriented Coma Scale Total: 15 - Psychiatric Psychiatric exam: Present: normal affect, normal mood - Skin Skin exam: Present: warm, dry, intact, normal color Course Course Narrative: Labs ordered EKG, chest x-ray ordered DuoNe disordered - Consultations Consultation #1: Lab called patient has an elevation of her troponin is 0.05. This is a new elevation when compared to old records. Time: 15:35 Vital Signs Temperature 98.3 F 04/14/17 14:49 Pulse Rate 78 04/14/17 14:49 Respiratory Rate 24 04/14/17 14:49 Blood Pressure 124/104 04/14/17 14:49 O2 Sat by Pulse Oximetry 80 04/14/17 14:49 Temperature 98.3 F 04/14/17 14:49 Pulse Rate 80 04/14/17 17:25 Respiratory Rate 20 04/14/17 17:25 Blood Pressure 128/107 04/14/17 17:25 O2 Sat by Pulse Oximetry 94 04/14/17 17:25 Oxygen Delivery Oxygen Delivery Bipap Shortness of Breath/Dyspnea - [facility] Narrative Medical decision making narrative: Patient presents with acute COPD exacerbation. Workup to identify possible sources for exacerbation include acute CHF exacerbation, UTI leading to renal insult, pneumonia, pneumothorax. MN, and PE also in differential. Patient's labs show increased BNP near 4000 now. Value is greater than it was previous admission. Patient's chest x-ray shows bilateral pleural effusions. Patient being admitted for CHF exacerbation exacerbating patient's COPD and causing her shortness of breath and hypoxemia. Patient also has an elevated troponin most likely from demand ischemia. Patient has no chest pain. Patient is DNR CC and states she only wants comfort care. Patient does not want to be on life-support anyway. Patient has x-ray that her care here is strictly comfort care. Of note patient complains that she has had some troubles with previous admission concerning not getting service what during her admission in a timely fashion. Patient does accept admission. Patient was except for admission by Joelle Wolfe the hospitalist. Patient takes lorazepam a hose been given 1 g of Ativan here. Patient's O2 sats currently 92% on BiPAP. - Lab Data Lab results reviewed: Yes I reviewed the patient's lab results. Lab results narrative: Short CBC 04/14/17 Range/Units 14:54 WBC 10.4 (4.3-11.1) K/mcL Hgb 12.6 (11.5-15.4) g/dL Hct 41.1 (35.3-44.9) % Plt Count 143 (140-400) K/mcL Neutrophils # 8.3 (1.6-8.9) K/mcL BMP 04/14/17 Range/Units 14:54 Sodium 136 (136-145) mEq/L Potassium 5.0 H (3.5-4.5) mEq/L Chloride 101 (98-109) mEq/L Carbon Dioxide 29 (19-29) mEq/L BUN 27 H (7-20) mg/dL Creatinine 1.45 H (0.57-1.11) mg/dL Glucose 258 H (70-99) mg/dL Calcium 10.0 (8.6-10.8) mg/dL Cardiac Enzymes 04/14/17 Range/Units 14:54 Troponin I 0.05 H* (0-0.03) ng/mL Urine 04/14/17 Range/Units 15:49 Urine Color Yellow (Yellow) Urine Clarity Clear (Clear) Urine pH 6.0 (5.0-8.0) pH Units Ur Specific [place] 1.019 (1.010-1.025) Urine Protein 30 H (Neg-Trace) mg/dL Urine Glucose (UA) Normal (Normal) mg/dL Result diagrams: 04/14/17 14:54 04/14/17 14:54 Lab Results 04/14/17 04/14/17 04/14/17 Range/Units 14:54 14:54 14:54 WBC 10.4 (4.3-11.1) K/mcL RBC 4.32 (3.82-4.97) M/mcL Hgb 12.6 (11.5-15.4) g/dL Hct 41.1 (35.3-44.9) % MCV 95.1 (83.0-100.0) fL MCH 29.2 (28.0-33.3) pg MCHC 30.7 L (31.6-35.5) g/dL RDW 17.1 H (11.5-14.5) % Plt Count 143 (140-400) K/mcL MPV 10.9 (9.4-12.4) fL Immature Gran % 0.4 (0-4) % Seg Neutrophils % 79.9 % Lymphocytes % 9.0 % Monocytes % 8.3 % Eosinophils % 2.0 % Basophils % 0.4 % Neutrophils # 8.3 (1.6-8.9) K/mcL Lymphocytes # 0.9 (0.6-4.6) K/mcL Monocytes # 0.9 (0.0-1.3) K/mcL Eosinophils # 0.2 (0.0-0.6) K/mcL Basophils # 0.0 (0.0-0.2) K/mcL Sodium 136 (136-145) mEq/L Potassium 5.0 H (3.5-4.5) mEq/L Chloride 101 (98-109) mEq/L Carbon Dioxide 29 (19-29) mEq/L BUN 27 H (7-20) mg/dL Creatinine 1.45 H (0.57-1.11) mg/dL Est GFR ( Amer) 42 L (> 60) Est GFR (Non-Af Amer) 35 L (> 60) BUN/Creatinine Ratio 19 (6-26) Glucose 258 H (70-99) mg/dL Calculated Osmolality 296 (280-300) Lactic Acid (0.5-2.2) mmol/L Calcium 10.0 (8.6-10.8) mg/dL Creatine Kinase 23 L (29-168) Units/L Troponin I 0.05 H* (0-0.03) ng/mL B-Natriuretic Peptide (0-100) pg/mL Urine Color (Yellow) Urine Clarity (Clear) Urine pH (5.0-8.0) pH Units Ur Specific [place] (1.010-1.025) Urine Protein (Neg-Trace) mg/dL Urine Glucose (UA) (Normal) mg/dL Urine Ketones (Negative) mg/dL Urine Blood (Negative) Urine Nitrite (Negative) Urine Bilirubin (Negative) Urine Urobilinogen (Normal) mg/dL Ur Leukocyte Esterase (Negative) Urine Microscopic RBC (0-3) per hpf Urine Microscopic WBC (0-3) per hpf Ur Squamous Epith Cells (None-Few) per lpf Urine Bacteria (None-Few) per hpf Hyaline Casts (None-Few) per lpf Ur Culture Indicated? (NO) 04/14/17 04/14/17 04/14/17 Range/Units 14:54 14:54 15:49 WBC (4.3-11.1) K/mcL RBC (3.82-4.97) M/mcL Hgb (11.5-15.4) g/dL Hct (35.3-44.9) % MCV (83.0-100.0) fL MCH (28.0-33.3) pg MCHC (31.6-35.5) g/dL RDW (11.5-14.5) % Plt Count (140-400) K/mcL MPV (9.4-12.4) fL Immature Gran % (0-4) % Seg Neutrophils % % Lymphocytes % % Monocytes % % Eosinophils % % Basophils % % Neutrophils # (1.6-8.9) K/mcL Lymphocytes # (0.6-4.6) K/mcL Monocytes # (0.0-1.3) K/mcL Eosinophils # (0.0-0.6) K/mcL Basophils # (0.0-0.2) K/mcL Sodium (136-145) mEq/L Potassium (3.5-4.5) mEq/L Chloride (98-109) mEq/L Carbon Dioxide (19-29) mEq/L BUN (7-20) mg/dL Creatinine (0.57-1.11) mg/dL Est GFR ( Amer) (> 60) Est GFR (Non-Af Amer) (> 60) BUN/Creatinine Ratio (6-26) Glucose (70-99) mg/dL Calculated Osmolality (280-300) Lactic Acid 1.5 (0.5-2.2) mmol/L Calcium (8.6-10.8) mg/dL Creatine Kinase (29-168) Units/L Troponin I (0-0.03) ng/mL B-Natriuretic Peptide 3913 H (0-100) pg/mL Urine Color Yellow (Yellow) Urine Clarity Clear (Clear) Urine pH 6.0 (5.0-8.0) pH Units Ur Specific [place] 1.019 (1.010-1.025) Urine Protein 30 H (Neg-Trace) mg/dL Urine Glucose (UA) Normal (Normal) mg/dL Urine Ketones Negative (Negative) mg/dL Urine Blood Negative (Negative) Urine Nitrite Negative (Negative) Urine Bilirubin Negative (Negative) Urine Urobilinogen Normal (Normal) mg/dL Ur Leukocyte Esterase Negative (Negative) Urine Microscopic RBC 0-3 (0-3) per hpf Urine Microscopic WBC 0-3 (0-3) per hpf Ur Squamous Epith Cells Many H (None-Few) per lpf Urine Bacteria None Seen (None-Few) per hpf Hyaline Casts None Seen (None-Few) per lpf Ur Culture Indicated? NO (NO) - Radiology Data Radiology results reviewed: Yes I reviewed the patient's radiology results. Chest X-Ray 04/14/17 14:55 IMPRESSION: Cardiomegaly with interstitial pulmonary edema and bilateral effusions suggesting mild to moderate CHF. D/ / Mike Pope MD / Mike Pope MD Interpreting Provider: Mike Pope MD - EKG Data EKG attestation: Yes I reviewed and interpreted this EKG. EKG results narrative: EKG dated 04/14/2017 at 1502 hrs. shows an electronically paced rhythm at a rate of [address] elevations or depressions any leads, EKG looks similar to previous EKG taken 03/26/2017. Attestation Statement - Attestation Attestation: I, Ang Rangel DO, examined this patient [id number] and my medical decision-making was reviewed with Dr. Ramses Salvador Resident Physician. I agree with the documented findings, disposition and treatment plan as described except to the extent set forth below. Please see my progress notes for details.
[2017-04-14 15:09] LABS: Basophils % 0.4 %; Eosinophils # 0.2 K/mcL (0.0-0.6); Hematocrit 41.1 % (35.3-44.9); Hemoglobin 12.6 g/dL (11.5-15.4); Immature Granulocytes % 0.4 % (0-4); Lymphocytes # 0.9 K/mcL (0.6-4.6); Mean Corpuscular HGB Conc 30.7 g/dL (31.6-35.5); Mean Corpuscular Hemoglobin 29.2 pg (28.0-33.3); Mean Corpuscular Volume 95.1 fL (83.0-100.0); Mean Platelet Volume 10.9 fL (9.4-12.4); Monocytes # 0.9 K/mcL (0.0-1.3); Monocytes % 8.3 %; Neutrophils # 8.3 K/mcL (1.6-8.9); Platelet Count 143 K/mcL (140-400); Red Blood Count 4.32 M/mcL (3.82-4.97); Red Cell Distribution Width 17.1 % (11.5-14.5); Segmented Neutrophils % 79.9 %
[2017-04-14] MEDS ORDERED: Furosemide 40 MG/4 ML VIAL IVP ONE (15:20)
[2017-04-14] MEDS ORDERED: Aspirin 81 MG TAB.CHEW PO STA (15:56)
--- NOTE | 2017-04-14 15:56 | Emergency Department Note ---
START Narrative - START START: 77-year-old female presents from home today with increased work of breathing and shortness of breath. She presented by EMS. She was found in her house her pulse ox was 60%. She was just discharged from the hospital within the last week. All the home she has been using her oxygen but has not been using her inhalers and breathing treatments as she is prescribed. She denies any productive sputum denies chest pain denies fevers chills nausea vomiting or diarrhea. Her main complaint concern is the shortness of breath. She is in fact requesting not to be admitted at this point after physical exam there is some concern. Vital signs on presentation showed hypoxia 70s. She is mentating appropriately shows a clear oral pharynx or trachea is midline she has a heart that is regular but appears to have pacemaker placement no signs of infection or issue. Patient's lungs are clear but had diminished aeration of the lower bases of this point. No crackles are noted on exam. Abdomen is soft nontender nondistended no guarding no rigidity. Patient's lower extremities appear to be stable with mild pitting edema but no other significant findings. Pulses are intact distally she has normal motor function at this point. Patient will have imaging including chest x-ray labs including CBC chemistry troponin and BNP. Antibiotics will be withheld at this time considering there is no visible infectious etiology. Patient will also have first dose of Lasix provided down here in the emergency room. Initial breathing treatments given by EMS helped with her oxygenation. When she was placed on nonrebreather mask oxygen went up to 100%. BiPAP was brought to the bedside but I will be withheld at this time until patient request. No other concerns or issues noted at this point. Patient most likely admission to hospital for evaluation of congestive heart failure fluid overload and COPD exacerbation. She detailed documentation of physical exam, medical intervention, medical decision-making and resident physician's note Patient Silvia have significantly elevated BNP showing concerning signs of fluid overload. She is responded to a initial breathing treatments and BiPAP.. Chest is slightly elevated troponin most likely secondary to cardiac strain from the fluid. Lasix given at this time. Review the previous chart showing a palliative care evaluation. She is currently a DNR CCA based on definition and description of with the patient's wishes are at this time. She will be treated as such admitted the hospital for medical management at this point.
[2017-04-14 16:00] LABS: Bilirubin,Urine Negative (Negative); Blood,Urine Negative (Negative); Clarity,Urine Clear (Clear); Color,Urine Yellow (Yellow); Glucose,Urine (UA) Normal (Normal); Ketones,Urine Negative (Negative); Leukocyte Esterase,Urine Negative (Negative); Nitrite,Urine Negative (Negative); Protein,Urine 30 mg/dL (Neg-Trace); Specific Gravity,Urine 1.019 (1.010-1.025); Urobilinogen,Urine Normal (Normal)
[2017-04-14 16:02] LABS: Bacteria,Urine None Seen per hpf (None-Few); Hyaline Casts,Urine None Seen per lpf (None-Few); RBC,Urine 0-3 per hpf (0-3); Squamous Epithelial Cell,Urine Many per lpf (None-Few); WBC,Urine 0-3 per hpf (0-3)
[2017-04-14] MEDS ORDERED: *HR* LORazepam 2 MG/ML VIAL IVP ONE (17:15)
[2017-04-14] MEDS ORDERED: Nitroglycerin 0.4 MG TAB.SUBL SL PRN (19:59)
[2017-04-14] MEDS ORDERED: NON-FORMULARY MEDICATION 1 EACH EACH (Oxygen [Oxygen] 4 L) NS SCH (20:00)
[2017-04-14] MEDS ORDERED: Dextrose Gel 15 GM PO PRN ×2 (20:01)
[2017-04-14] MEDS ORDERED: *HR* Dextrose 50 % in Water (Syg) 50 ML SYRINGE IVP PRN (20:01)
[2017-04-14] MEDS ORDERED: D5% in Water 1,000 ML IVC PRN (20:01)
[2017-04-14] MEDS ORDERED: Ondansetron 4 MG/2 ML VIAL IVP PRN (20:03)
[2017-04-14] MEDS ORDERED: *HR* Morphine 2 MG/ML SYRINGE IVP PRN (20:03)
[2017-04-14] MEDS ORDERED: Naloxone 0.4 MG/ML INJ IVP PRN (20:03)
[2017-04-14 20:45] LABS: INR 1.1; Prothrombin Time 12.1 Seconds (9.4-12.1)
[2017-04-14 21:16] LABS: Hemoglobin A1C 7.5 %
[2017-04-14] MEDS: Ipratropium/Albuterol Neb 3 ML IH SCH ×2 (21:18→23:17)
[2017-04-14] MEDS: Mirtazapine 15 MG TABLET PO SCH (21:40)
--- NOTE | 2017-04-14 21:43 | Internal Med History&Physical ---
Date of Encounter: 04/14/17 Time of Encounter: 21:20 Assessment and Plan (1) Systolic CHF, acute Current visit: No Status: Acute Acute exacerbation of systolic CHF LVEF ~ 30% - with probable end-stage CHF Continue IV Lasix, Coreg, Lisinopril, Imdur, IV Morphine PRN, Nitro PRN Continue BiPAP, O2 BNP - 3913 Chest x-ray - cardiomegaly with moderate pulmonary edema EKG - paced rhythm with no acute ST-T changes Troponin - 0.05, cycle troponin (elevated likely due to cardiomyopathy/CHF and CKD) Palliative care consult as patient wants to be DNR/DNI CC arrest Fluid restriction, strict I's and O's, daily weight, cardiac telemetry, monitor closely (2) Interstitial lung disease Current visit: No Status: Chronic Chronic interstitial lung disease with acute respiratory failure Continue O2 via nasal cannula, continue BiPAP, DuoNeb breathing treatment, IV Solu-Medrol (3) CKD (chronic kidney disease) stage 3, GFR 30-59 ml/min Current visit: No Status: Chronic Chronic kidney disease stage III, stable, GFR and creatinine at baseline (4) H/O cardiomyopathy Current visit: No Status: Chronic History of nonischemic cardiomyopathy and systolic CHF History of pacemaker placement (5) Diabetes Current visit: No Status: Chronic Diabetes mellitus type 2, [id number], hyperglycemia Continue sliding scale insulin, glucose checks Qualifiers: Diabetes mellitus type: type 2 Diabetes mellitus complication status: with unspecified complications Diabetes mellitus terminal gauger insulin use: without penitentiary use Qualified Code(s): E11.8 - Type 2 diabetes mellitus with unspecified complications (6) Hypertension Current visit: No Status: Chronic Essential hypertension, controlled, monitor Continue home dose of Coreg, Lisinopril, Imdur Qualifiers: Hypertension type: essential hypertension Qualified Code(s): I10 - Essential (primary) hypertension (7) Sleep apnea Current visit: No Status: Chronic Continue BiPAP Qualifiers: Sleep apnea type: unspecified type Qualified Code(s): G47.30 - Sleep apnea , unspecified (8) History of DVT (deep vein thrombosis) Current visit: No Status: Chronic History of DVT, not on any anticoagulation due to history of bleeding (9) DVT prophylaxis Current visit: Yes Status: Acute Continue heparin subcutaneous Internal Medicine - H&P: HPI Chief complaint: Shortness of breath Admitted From: Emergency Dept Plans for Post Hospital Care: Home History of present illness: Ms. Griffin is a 77 year old female with past medical history of systolic CHF, cardiomyopathy, interstitial lung disease, history of DVT, chronic kidney disease, diabetes, obstructive sleep apnea, hypertension, coronary artery disease, hyperlipidemia, GERD, osteoporosis, anxiety and history of breast cancer. Patient presents to the ED with complaints of shortness of breath. Examined in the room. Patient is awake and alert. She is in mild distress. Able to provide history. is at bedside. Patient states her shortness of breath started about 2 days ago. Symptoms are gradually worsening. She also has associated cough with minimal sputum production. She denies chest pain or palpitations. Denies abdominal pain or vomiting or fever or dizziness. Patient does have nonischemic cardiomyopathy and interstitial lung disease. She uses 4 L oxygen via nasal cannula at home and is also on CPAP at home. Patient's symptoms are aggravated with exertion. No alleviating factors. Patient has no other acute complaints at this time. She says the BiPAP seems to be helping right now. Initial workup in the ED was significant for elevated BNP peptide and elevated troponin at 0.05. Troponin elevation is likely due to cardiomyopathy and end- stage CHF. Patient will need to be on BiPAP and on IV Lasix and DuoNeb breathing treatment. Patient and have been explained about guarded condition and prognosis. They have also been explained about plan of care. They understood and agreed. No unanswered questions. CODE STATUS DO NOT RESUSCITATE and DO NOT INTUBATE comfort care arrest, as stated by the patient and her . Past Med Surg Social Fam HX - Past Medical History Medical history: arthritis, cancer, cardiomyopathy, CHF, COPD, coronary artery disease, diabetes, GERD, hyperlipidemia, hypertension, malignancy, osteoporosis , renal disease, other Psychiatric history: anxiety, depression - Past Surgical History Surgical History: cancer surgery, cataract, hip replacement, orthopedic, other, pacemaker/AICD, other - Social History Smoking Status: Former smoker Smokeless Tobacco Status: No Alcohol use: none Drug use: none - Family History Father Living Status: Hx Family Cardiac Disorders: Yes Sister Living Status: Hx Family Neurologic Disorders: Yes (Alzheimer's) Mother Adopted: No Family Member Ethnicity: Non- Living Status: Hx Family Cardiac Disorders: Yes Hx Family Respiratory Disorders: No Hx Family Cancer: No Hx Family GI Disorders: No Hx Family Endocrine Disorder: No Hx Family Neuromuscular Disorders: No Hx Family Neurologic Disorders: No Hx Family HEENT Disorders: No Hx Family Autoimmune Disorders: No Internal Medicine - H&P: Meds Carvedilol 12.5 mg PO BID #0 03/25/15 [History] Furosemide [Lasix] 60 mg PO DAILY #0 03/25/15 [History] Glimepiride [Amaryl] 2 mg PO BID #0 03/25/15 [History] Nitroglycerin [Nitrostat] 0.4 mg SL Q5M PRN #0 03/25/15 [History] Omeprazole [PriLOSEC] 20 mg PO QAM #0 03/25/15 [History] Mirtazapine 30 mg PO HS 02/19/16 [History] Oxygen 4 l NS AD 02/19/16 [History] Potassium Chloride [Klor-Con Sprinkle] 10 meq PO HS 02/19/16 [History] Cyclobenzaprine HCl 5 mg PO HS 08/26/16 [History] Escitalopram [Lexapro] 10 mg PO QAM 08/26/16 [History] Folic Acid [FA-8] 0.8 mg PO DAILY 08/26/16 [History] Lisinopril [Zestril] 20 mg PO DAILY 08/26/16 [History] clonazePAM [Klonopin] 0.5 mg PO TID PRN 08/26/16 [History] Gabapentin [Neurontin] 100 mg PO TID #60 capsule 08/28/16 [Rx] Escitalopram Oxalate 5 mg PO QPM 01/17/17 [History] Magnesium Oxide [Magnesium] 500 mg PO DAILY 01/17/17 [History] Isosorbide MONOnitrate (24 HR) [Imdur] 30 mg PO DAILY #30 tab.er.24h 01/19/17 [ Rx] Docusate [Colace] 100 mg PO BID PRN 02/14/17 [Rx] Polyethylene Glycol 3350 [MiraLAX] 17 gm PO DAILY 03/26/17 [History] Ipratropium/Albuterol Neb [Duoneb] 3 ml IH Q6H PRN 04/14/17 [History] Sitagliptin Phosphate [Januvia] 50 mg PO DAILY 04/14/17 [History] 3 Allergy/AdvReac Type Severity Reaction Status Date / Time Amoxicillin Allergy Swelling Verified 01/17/17 17:21 of Lip/Tongue/Throat Sulfa (Sulfonamide Allergy Swelling Verified 01/17/17 17:21 Antibiotics) of Lip/Tongue/Throat acetaminophen [From Percocet] AdvReac Nausea Verified 01/17/17 17:21 citalopram [From Celexa] AdvReac Dizziness Verified 01/17/17 17:21 codeine AdvReac Nausea Verified 01/17/17 17:21 [From Tylenol-Codeine] epinephrine AdvReac Headache Verified 01/17/17 17:21 Oxycodone [From Percocet] AdvReac Nausea Verified 01/17/17 17:21 Penicillins [PCN] AdvReac Itching Verified 01/17/17 17:21 All Systems PM: A 10-system review of systems was performed and is negative for pertinent findings except as documented above in the HPI. - Constitutional Constitutional: fatigue, weakness, no fever(s) - EENT Eyes: no blurry vision - Cardiovascular Cardiovascular ROS IM: dyspnea, dyspnea on exertion, edema, lightheadedness, orthopnea, no chest pain, no diaphoresis, no palpitations, no syncope - Respiratory Respiratory: cough, dyspnea, dyspnea on exertion, chest congestion, no hemoptysis, no wheezing - Gastrointestinal Gastrointestinal: no abdominal pain, no bloating, no diarrhea, no hematemesis, no hematochezia, no nausea, no vomiting - Genitourinary Genitourinary: no dysuria - Neurological Neurological ROS: no abnormal gait, no confusion, no dizziness, no loss of vision, no numbness, no tingling - Constitutional Vitals: Temp Pulse Resp BP Pulse Ox 98.9 F 80 23 146/97 96 04/14/17 18:49 04/14/17 18:49 04/14/17 18:49 04/14/17 18:49 04/14/17 18:49 General appearance: Present: cooperative, mild distress, A&O X 3, pleasant, answers questions appropriately Exam: Generalized weakness, chronically ill-appearing - Head Head exam: Present: atraumatic - Eye Eye exam: Present: EOMI - ENT ENT exam: Present: mucous membranes dry - Respiratory Respiratory exam: Present: accessory muscle use, decreased breath sounds ( Decreased air entry in both bases), rales (Bilateral), tachypnea. Absent: chest wall tenderness, rhonchi, wheezes - Cardiovascular Cardiovascular exam: Present: RRR, +S1, +S2, systolic murmur - GI/Abdominal GI/Abdominal exam: Present: soft. Absent: distended, firm, guarding, tenderness - Extremities Exam Extremities exam: Present: pedal edema (Bilateral lower leg 2+ pitting edema), radial pulses palpable and symmetrical. Absent: calf tenderness, cyanotic - Neurological Exam Neurological exam: Present: alert, oriented X3, no focal deficits. Absent: facial droop, speech deficit Internal Med - H&P Results - Labs CBC & Chem 7: 04/14/17 14:54 04/14/17 14:54 Labs: Cardiac Enzymes 04/14/17 Range/Units 20:47 Troponin I 0.05 H* (0-0.03) ng/mL
[2017-04-14] MEDS: Insulin LISPRO 300 UNITS/3 ML VIAL SQ SCH ×2 (21:49→21:57)
[2017-04-14 23:22] LABS: ABG Base Excess 6.4 mEq/L (-2.0 to 3.0); ABG HCO3 31 mEq/L (21-27); ABG Oxygen Saturation 91 % (95-98); ABG PCO2 45 mmHg (35-45); ABG PH 7.45 pH Units (7.32-7.45); ABG PO2 59 mmHg (85-104); ABG TCO2 33 mEq/L (20-26)
[2017-04-14 23:24] LABS: Blood Gas Modality BIPAP; Blood Gas PEEP 8 cm H2O; Blood Gas VT 16 cc
[2017-04-15] MEDS ORDERED: Insulin LISPRO 300 UNITS/3 ML VIAL SQ SCH
[2017-04-15] MEDS: methylPREDNISolone 125 MG/2 ML VIAL IVP SCH ×3 (00:57→17:18)
[2017-04-15] MEDS: *HR* Heparin 5,000 UNIT/ML VIAL SQ SCH ×3 (00:58→17:18)
[2017-04-15] MEDS: Ipratropium/Albuterol Neb 3 ML IH SCH ×6 (03:55→23:52)
[2017-04-15 05:07] LABS: Basophils % 0.1 %; Hematocrit 36.5 % (35.3-44.9); Hemoglobin 11.6 g/dL (11.5-15.4); Immature Granulocytes % 0.7 % (0-4); Lymphocytes # 0.7 K/mcL (0.6-4.6); Lymphocytes % 8.4 %; Mean Corpuscular HGB Conc 31.8 g/dL (31.6-35.5); Mean Corpuscular Hemoglobin 30.1 pg (28.0-33.3); Mean Corpuscular Volume 94.8 fL (83.0-100.0); Mean Platelet Volume 11.3 fL (9.4-12.4); Monocytes # 0.2 K/mcL (0.0-1.3); Monocytes % 2.7 %; Neutrophils # 7.5 K/mcL (1.6-8.9); Platelet Count 134 K/mcL (140-400); Red Blood Count 3.85 M/mcL (3.82-4.97); Red Cell Distribution Width 16.7 % (11.5-14.5); Segmented Neutrophils % 88.1 %
[2017-04-15 05:25] LABS: Calcium 9.9 mg/dL (8.6-10.8); Chol/HDL Ratio 5.2 (0-4.9); Potassium 4.9 mEq/L (3.5-4.5)
[2017-04-15] MEDS: Famotidine 20 MG/2 ML VIAL IVP SCH (06:07)
[2017-04-15] MEDS: Insulin LISPRO 300 UNITS/3 ML VIAL SQ SCH ×4 (09:19→22:17)
[2017-04-15] MEDS: Furosemide 40 MG/4 ML VIAL IVP SCH ×2 (09:19→17:18)
[2017-04-15] MEDS: Lisinopril 20 MG TABLET PO SCH (09:20)
[2017-04-15] MEDS: Isosorbide MONOnitrate (24 HR) 30 MG TAB.ER.24H PO SCH (09:20)
[2017-04-15] MEDS: Magnesium Oxide 400 MG TABLET PO SCH (09:20)
[2017-04-15] MEDS: Folic Acid 1 MG TABLET PO SCH (09:20)
--- NOTE | 2017-04-15 11:21 | Palliative - Consult Note ---
Date of Encounter: 04/15/17 Time of Encounter: 11:00 - Assessment and Plan (1) Dyspnea and respiratory abnormalities Current Visit: No Status: Acute Assessment and plan: Improved since admission. continues with IV Furosemide, Solumedrol, aerosols, supportive oxygen. Has low dose Morphine IV if needed, but has not utilized. (2) Constipation Current Visit: No Status: Acute Assessment and plan: Continue daily Miralax and monitor Qualifiers: Constipation type: unspecified constipation type Qualified Code(s): K59.00 - Constipation, unspecified (3) Counseling regarding advanced care planning and goals of care Current Visit: Yes Status: Acute Assessment and plan: Patient has already completed advanced directives. 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 She states she had a recent stay at [facility] for rehab, and has had [facility] follow at home. She was actually enrolled in hospice back in 2013, but states she signed herself out since she improved at that time. This is her 3rd admission since February 10. She states she didn't want to come to hospital, however, family and nurse encouraged her as she was severely short of breath at home. We discussed that with hospice, they would assist with symptom management with shortness of breath/anxiety/pain and other issues, but goal would be to manage her CHF at home, and not return to the hospital for aggressive management. She states she is considering doing that, but she needs to speak with her later today. Will f/u in am. Palliative-CN HPI - Data of Consult Patient: known to practice within the last 3 years Consult date: 04/15/17 Requesting Physician: Vincenzo López DO Primary Care Provider: PCP NONE - Consult Narrative History of present illness: Ms. Griffin is a 77 year old female with a history of CHF, interstitial lung disease, CKD, DM, HTN, CAD, DVT, aas well as other comorbid conditions, who presented to hospital with shortness of breath. Stated she noticed a change and worsening in her breathing a few days prior to admission. She was Hypoxic when squad arrived to the house. She does have oxygen/CPAP at home. She was admitted and began on IV diuretics, IV steroids, and aerosols. She had slightly elevated troponin, felt to be related to cardiomyopathy and CHF. This patient was actually enrolled in [facility] back in 2013, but signed out as her condition improved and she felt she was "abusing the services". She is currently a DNR/DNI code status. Upon my visit, she states her breathing is much better. Does appear to have dyspnea with conversation, takes pauses occasionally during conversation. No family is present. She denies any pain/nausea/anxiety. States she is constipated at times, but not currently. CC: Vincenzo López, DO Past Med Surg Social Fam HX - Past Medical History Medical history: arthritis, cancer, cardiomyopathy, CHF, COPD, coronary artery disease, diabetes, GERD, hyperlipidemia, hypertension, malignancy, osteoporosis , renal disease, other Psychiatric history: anxiety, depression - Past Surgical History Surgical History: cancer surgery, cataract, hip replacement, orthopedic, other, pacemaker/AICD, other - Social History Smoking Status: Former smoker Smokeless Tobacco Status: No Alcohol use: none Drug use: none - Family History Father Living Status: Hx Family Cardiac Disorders: Yes Sister Living Status: Hx Family Neurologic Disorders: Yes (Alzheimer's) Mother Adopted: No Family Member Ethnicity: Non- Living Status: Hx Family Cardiac Disorders: Yes Hx Family Respiratory Disorders: No Hx Family Cancer: No Hx Family GI Disorders: No Hx Family Endocrine Disorder: No Hx Family Neuromuscular Disorders: No Hx Family Neurologic Disorders: No Hx Family HEENT Disorders: No Hx Family Autoimmune Disorders: No Medications and Allergies Carvedilol 12.5 mg PO BID #0 03/25/15 [History] Furosemide [Lasix] 60 mg PO DAILY #0 03/25/15 [History] Glimepiride [Amaryl] 2 mg PO BID #0 03/25/15 [History] Nitroglycerin [Nitrostat] 0.4 mg SL Q5M PRN #0 03/25/15 [History] Omeprazole [PriLOSEC] 20 mg PO QAM #0 03/25/15 [History] Mirtazapine 30 mg PO HS 02/19/16 [History] Oxygen 4 l NS AD 02/19/16 [History] Potassium Chloride [Klor-Con Sprinkle] 10 meq PO HS 02/19/16 [History] Cyclobenzaprine HCl 5 mg PO HS 08/26/16 [History] Escitalopram [Lexapro] 10 mg PO QAM 08/26/16 [History] Folic Acid [FA-8] 0.8 mg PO DAILY 08/26/16 [History] Lisinopril [Zestril] 20 mg PO DAILY 08/26/16 [History] clonazePAM [Klonopin] 0.5 mg PO TID PRN 08/26/16 [History] Gabapentin [Neurontin] 100 mg PO TID #60 capsule 08/28/16 [Rx] Escitalopram Oxalate 5 mg PO QPM 01/17/17 [History] Magnesium Oxide [Magnesium] 500 mg PO DAILY 01/17/17 [History] Isosorbide MONOnitrate (24 HR) [Imdur] 30 mg PO DAILY #30 tab.er.24h 01/19/17 [ Rx] Docusate [Colace] 100 mg PO BID PRN 02/14/17 [Rx] Polyethylene Glycol 3350 [MiraLAX] 17 gm PO DAILY 03/26/17 [History] Ipratropium/Albuterol Neb [Duoneb] 3 ml IH Q6H PRN 04/14/17 [History] Sitagliptin Phosphate [Januvia] 50 mg PO DAILY 04/14/17 [History] 3 Allergy/AdvReac Type Severity Reaction Status Date / Time Amoxicillin Allergy Swelling Verified 01/17/17 17:21 of Lip/Tongue/Throat Sulfa (Sulfonamide Allergy Swelling Verified 01/17/17 17:21 Antibiotics) of Lip/Tongue/Throat acetaminophen [From Percocet] AdvReac Nausea Verified 01/17/17 17:21 citalopram [From Celexa] AdvReac Dizziness Verified 01/17/17 17:21 codeine AdvReac Nausea Verified 01/17/17 17:21 [From Tylenol-Codeine] epinephrine AdvReac Headache Verified 01/17/17 17:21 Oxycodone [From Percocet] AdvReac Nausea Verified 01/17/17 17:21 Penicillins [PCN] AdvReac Itching Verified 01/17/17 17:21 All systems: reviewed and no additional remarkable complaints except as stated ( poor appetite, generalized weakness, shortness even at rest, dry cough, constipation) Palliative Care-Exam - Constitutional Vitals: Temp Pulse Resp BP Pulse Ox 97.6 F 83 18 130/93 92 04/15/17 07:54 04/15/17 07:54 04/15/17 09:09 04/15/17 07:54 04/15/17 09:09 General appearance: Present: no acute distress - Head Head Exam: Present: normal inspection, normocephalic - Eye Eye exam: Present: normal appearance, PERRL - Respiratory Additional comments: Bilateral fine crackles lower lobes - Cardiovascular Cardiovascular exam: Present: +S1, +S2, systolic murmur - GI/Abdominal Exam GI/Abdominal exam: Present: distended, normal bowel sounds, soft - Extremities Exam Additional comments: 2+ edema bilateral lower extremities - Neurological Exam Neurological exam: Present: alert, oriented X3, strengths equal and symetr throughout Internal Medicine - CN: Reslt - Labs CBC & Chem 7: 04/15/17 04:10 04/15/17 04:10 Labs: Short CBC 04/15/17 Range/Units 04:10 WBC 8.5 (4.3-11.1) K/mcL Hgb 11.6 (11.5-15.4) g/dL Hct 36.5 (35.3-44.9) % Plt Count 134 L (140-400) K/mcL Neutrophils # 7.5 (1.6-8.9) K/mcL BMP 04/15/17 04:10 Sodium 137 Potassium 4.9 H Chloride 101 Carbon Dioxide 29 BUN 28 H Creatinine 1.42 H Glucose 245 H Calcium 9.9 Cardiac Enzymes 04/14/17 04/15/17 04/15/17 Range/Units 20:47 04:10 09:49 Troponin I 0.05 H* 0.05 H* 0.04 H* (0-0.03) ng/mL - ABG Interpretation ABG results: ABG ABG pH 7.45 pH Units (7.32-7.45) 04/14/17 23:14 ABG pCO2 45 mmHg (35-45) 04/14/17 23:14 ABG pO2 59 mmHg (85-104) L 04/14/17 23:14 ABG O2 Saturation 91 % (95-98) L 04/14/17 23:14 PT/INR, D-dimer PT 12.1 Seconds (9.4-12.1) 04/14/17 14:54 Consult Discharge Plan - Plan Referrals: [facility] [place],Wilmar Choudhury MD [Non-Partnered Physician] - Palliative Quality Palliative Quality: Screen for Code Status: Yes, Screen for Goals of Care: Yes, Screen for Pain: Yes, If Pain Regimen Started, Initiate Bowel Regimen: Yes, Screen for Nausea/Vomitting: Yes Code Status: 04/14/17 21:34 CODE [Resuscitation Status: Active] [RES] Routine Comment: Resuscitation Status: [id number]
--- NOTE | 2017-04-15 15:41 | Internal Med Progress Note ---
<Carlos Mcclure - Last Filed: 04/15/17 15:38> Date of Encounter: 04/15/17 Time of Encounter: 15:40 - Assessment and plan (1) Systolic CHF, acute Current Visit: Yes Status: Acute Assessment and plan: patient presented with worsening sob, dizziness BNP 2913 CXR cardiomegaly with moderate pulmonary edema continue fluid restrction diet, strict i/o, lasix, daily weight continue coreg and lisinopril. cardiac diet. (2) Goals of care, counseling/discussion Current Visit: Yes Status: Chronic Assessment and plan: Palliative on board and talked to patient about hospice patient previously has been in hospice but decided to d/c hospice as she got better she will discuss with her about hospice before making any decision. (3) Diabetes Current Visit: Yes Status: Chronic Assessment and plan: controlled continue SSI Qualifiers: Diabetes mellitus type: type 2 Diabetes mellitus complication status: with unspecified complications Diabetes mellitus fci insulin use: without fci use Qualified Code(s): E11.8 - Type 2 diabetes mellitus with unspecified complications (4) DVT prophylaxis Current Visit: Yes Status: Acute Assessment and plan: heparin SQ (5) History of DVT (deep vein thrombosis) Current Visit: Yes Status: Chronic Assessment and plan: hx of DVT not on anticoagulation due to previous hx of bleeding. (6) Hypertension Current Visit: Yes Status: Chronic Assessment and plan: controlled continue home medications Qualifiers: Hypertension type: essential hypertension Qualified Code(s): I10 - Essential (primary) hypertension (7) Interstitial lung disease Current Visit: Yes Status: Chronic Assessment and plan: continue O2 supplementation on 4L at home continue duonebs and steroids. - Subjective Interval history: Reports improved shortness of breath. Denies chest pain, abdominal pain, nausea , vomiting, diarrhea. - Constitutional Vitals: Temp Pulse Resp BP Pulse Ox 97.7 F 89 20 138/89 98 04/15/17 11:39 04/15/17 11:39 04/15/17 11:39 04/15/17 11:39 04/15/17 11:39 General appearance: Present: cooperative, mild distress, A&O X 3, pleasant, answers questions appropriately - Respiratory Respiratory exam: Present: decreased breath sounds, rales. Absent: rhonchi, wheezes - Cardiovascular Cardiovascular exam: Present: RRR, +S1, +S2. Absent: diastolic murmur, gallop, rubs, systolic murmur - GI/Abdominal GI/Abdominal exam: Present: normal bowel sounds, soft, no peritoneal signs. Absent: distended, tenderness - Extremities Exam Extremities exam: Present: pedal edema (1+), warm, radial pulses palpable and symmetrical. Absent: calf tenderness, cyanotic - Psychiatric Psychiatric exam: Present: normal affect, normal mood Internal Medicine: Result - Labs CBC & Chem 7: 04/15/17 04:10 04/15/17 04:10 Labs: Short CBC 04/15/17 Range/Units 04:10 WBC 8.5 (4.3-11.1) K/mcL Hgb 11.6 (11.5-15.4) g/dL Hct 36.5 (35.3-44.9) % Plt Count 134 L (140-400) K/mcL Neutrophils # 7.5 (1.6-8.9) K/mcL BMP 04/15/17 04:10 Sodium 137 Potassium 4.9 H Chloride 101 Carbon Dioxide 29 BUN 28 H Creatinine 1.42 H Glucose 245 H Calcium 9.9 Cardiac Enzymes 04/14/17 04/15/17 04/15/17 Range/Units 20:47 04:10 09:49 Troponin I 0.05 H* 0.05 H* 0.04 H* (0-0.03) ng/mL - ABG Interpretation ABG results: ABG ABG pH 7.45 pH Units (7.32-7.45) 04/14/17 23:14 ABG pCO2 45 mmHg (35-45) 04/14/17 23:14 ABG pO2 59 mmHg (85-104) L 04/14/17 23:14 ABG O2 Saturation 91 % (95-98) L 04/14/17 23:14 PT/INR, D-dimer PT 12.1 Seconds (9.4-12.1) 04/14/17 14:54 Consult Discharge Plan - Plan Referrals: Wilmar Newman MD [Non-Partnered Physician] - <Vincenzo López - Last Filed: 04/15/17 18:00> Date of Encounter: 04/15/17 - Assessment and plan (1) Acute and chronic respiratory failure Current Visit: Yes Status: Acute Qualifiers: Respiratory failure complication: hypoxia Qualified Code(s): J96.21 - Acute and chronic respiratory failure with hypoxia (2) Acute CHF Current Visit: Yes Status: Acute Qualifiers: Congestive heart failure type: combined Qualified Code(s): I50.21 - Acute systolic (congestive) heart failure (3) Acute exacerbation of chronic obstructive airways disease Current Visit: Yes Status: Acute (4) Hypertension Current Visit: Yes Status: Chronic Qualifiers: Hypertension type: essential hypertension Qualified Code(s): I10 - Essential (primary) hypertension (5) Interstitial lung disease Current Visit: Yes Status: Chronic (6) CKD (chronic kidney disease) stage 3, GFR 30-59 ml/min Current Visit: No Status: Chronic (7) ALLYSON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 Current Visit: No Status: Chronic - Constitutional Vitals: Temp Pulse Resp BP Pulse Ox 97.9 F 79 16 130/77 92 04/15/17 16:11 04/15/17 16:11 04/15/17 16:32 04/15/17 16:11 04/15/17 16:32 Internal Medicine: Result - Labs CBC & Chem 7: 04/15/17 04:10 04/15/17 04:10 Labs: Short CBC 04/15/17 Range/Units 04:10 WBC 8.5 (4.3-11.1) K/mcL Hgb 11.6 (11.5-15.4) g/dL Hct 36.5 (35.3-44.9) % Plt Count 134 L (140-400) K/mcL Neutrophils # 7.5 (1.6-8.9) K/mcL BMP 04/15/17 04:10 Sodium 137 Potassium 4.9 H Chloride 101 Carbon Dioxide 29 BUN 28 H Creatinine 1.42 H Glucose 245 H Calcium 9.9 Cardiac Enzymes 04/14/17 04/15/17 04/15/17 Range/Units 20:47 04:10 09:49 Troponin I 0.05 H* 0.05 H* 0.04 H* (0-0.03) ng/mL - ABG Interpretation ABG results: ABG ABG pH 7.45 pH Units (7.32-7.45) 04/14/17 23:14 ABG pCO2 45 mmHg (35-45) 04/14/17 23:14 ABG pO2 59 mmHg (85-104) L 04/14/17 23:14 ABG O2 Saturation 91 % (95-98) L 04/14/17 23:14 PT/INR, D-dimer PT 12.1 Seconds (9.4-12.1) 04/14/17 14:54 - Attending Attestation I examined this patient and my medical decision-making was reviewed with the Resident Physician on 04/15/17. I agree with the documented findings, disposition and treatment plan as described except to the extent set forth below. Ms Griffin is currently admitted for acute exac CHF. She remains moderate to high risk due to potential for worsening resp status. Ms Griffin is up in chair. She feels she is doing better today. Concerned about her "ejection fraction." No fever or chills. No CP. Exam Alert. Comfortable Mucus membranes dry Heart not tachy Lungs with scattered rales Abd soft Edema present I/P 1. Exac CHF 2. Hypoxia Further diagnoses and plan as above.
--- NOTE | 2017-04-15 17:29 | Electrocardiograph Report ---
[place] [id number] Test Date: 2017-04-14 Pat Name: Natacha Griffin Department: 102 Room: [id number] Gender: F Palliative Nurse: Am : 1940 Requested By: Ramses Salvador Order Number: [id number] Reading MD: Denise Morel Measurements Intervals [place] Rate: 75 P: 51 NM: 136 QRS: 159 QRSD: 162 T: -64 QT: 441 QTc: 470 Interpretive Statements ELECTRONIC VENTRICULAR PACEMAKER ABNORMAL RHYTHM ECG Electronically Signed On 04-15-2017 17:28:03 EDT by Denise Morel
[2017-04-15] MEDS: Acetaminophen 325 MG TABLET PO PRN (18:39)
[2017-04-15] MEDS ORDERED: 0.9 % Sodium Chloride 500 ML IVC ONE (20:20)
[2017-04-15] MEDS ORDERED: 0.9 % Sodium Chloride 500 ML ONE (20:23)
[2017-04-15] MEDS ORDERED: Haloperidol Lactate 5 MG/ML VIAL IVP ONE (21:40)
[2017-04-15] MEDS ORDERED: Haloperidol Lactate 5 MG/ML VIAL IM PRN (22:15)
[2017-04-15] MEDS: Mirtazapine 15 MG TABLET PO SCH (22:17)
--- NOTE | 2017-04-15 23:05 | Event Note ---
Date of Encounter: 04/15/17 Time of Encounter: 22:15 Notified by nurse that patient is very agitated, has tried to call the police multiple times, and is very upset at her for abandoning her at the hospital. Upon entering the room, security is at bedside and patient is sitting up at the side of the bed. She is A&Ox4, agitated, and unpleasant. Patient reports she has called her 3 times to come take her home but he refused and said he was going to bed. I explained that she has not been discharged yet and needs continued treatment. She verbalized understanding but reported she will not sleep tonight. Haldol IM ordered prn worsening agitation. Sitter ordered.
[2017-04-16] MEDS: *HR* Heparin 5,000 UNIT/ML VIAL SQ SCH ×3 (00:20→17:52)
[2017-04-16] MEDS: methylPREDNISolone 125 MG/2 ML VIAL IVP SCH ×2 (00:20→08:18)
[2017-04-16] MEDS: Ipratropium/Albuterol Neb 3 ML IH SCH ×7 (04:21→23:18)
[2017-04-16 05:09] LABS: Calcium 9.9 mg/dL (8.6-10.8); Potassium 4.3 mEq/L (3.5-4.5)
[2017-04-16] MEDS: Famotidine 20 MG/2 ML VIAL IVP SCH (06:03)
--- NOTE | 2017-04-16 06:45 | Internal Med Progress Note ---
<Carlos Mcclure - Last Filed: 04/16/17 06:45> Date of Encounter: 04/16/17 - Assessment and plan (1) Systolic CHF, acute Current Visit: Yes Status: Acute (2) Goals of care, counseling/discussion Current Visit: Yes Status: Chronic (3) Diabetes Current Visit: Yes Status: Chronic Qualifiers: Diabetes mellitus type: type 2 Diabetes mellitus complication status: with unspecified complications Diabetes mellitus assisted insulin use: without intermediate card tender use Qualified Code(s): E11.8 - Type 2 diabetes mellitus with unspecified complications (4) DVT prophylaxis Current Visit: Yes Status: Acute (5) History of DVT (deep vein thrombosis) Current Visit: Yes Status: Chronic (6) Hypertension Current Visit: Yes Status: Chronic Qualifiers: Hypertension type: essential hypertension Qualified Code(s): I10 - Essential (primary) hypertension (7) Interstitial lung disease Current Visit: Yes Status: Chronic - Subjective Interval history: Reports improved shortness of breath. Denies chest pain, abdominal pain, nausea , vomiting, diarrhea. - Constitutional Vitals: Temp Pulse Resp BP Pulse Ox 97.6 F 87 22 140/93 98 04/16/17 05:00 04/16/17 05:00 04/16/17 05:00 04/16/17 05:00 04/16/17 05:00 General appearance: Present: cooperative, mild distress, A&O X 3, pleasant, answers questions appropriately Internal Medicine: Result - Labs CBC & Chem 7: 04/15/17 04:10 04/16/17 04:20 Labs: BMP 04/16/17 04:20 Sodium 136 Potassium 4.3 Chloride 99 Carbon Dioxide 26 BUN 36 H Creatinine 1.50 H Glucose 234 H Calcium 9.9 Cardiac Enzymes 04/15/17 Range/Units 09:49 Troponin I 0.04 H* (0-0.03) ng/mL - ABG Interpretation ABG results: ABG ABG pH 7.45 pH Units (7.32-7.45) 04/14/17 23:14 ABG pCO2 45 mmHg (35-45) 04/14/17 23:14 ABG pO2 59 mmHg (85-104) L 04/14/17 23:14 ABG O2 Saturation 91 % (95-98) L 04/14/17 23:14 PT/INR, D-dimer PT 12.1 Seconds (9.4-12.1) 04/14/17 14:54 Consult Discharge Plan - Plan [place] [facility] [place] [Non-Partnered Physician] - 04/23/17 10:30 am <AndréskhadijahmaryMarley tello - Last Filed: 04/16/17 10:59> Date of Encounter: 04/16/17 Time of Encounter: 10:37 - Assessment and plan (1) Systolic CHF, acute Current Visit: Yes Status: Acute Assessment and plan: patient presented with worsening sob, dizziness BNP 2913 CXR cardiomegaly with moderate pulmonary edema continue fluid restriction diet, strict i/o, lasix, daily weight continue coreg and lisinopril. cardiac diet. Continues to improve daily (2) Goals of care, counseling/discussion Current Visit: Yes Status: Chronic Assessment and plan: Patient with multiple admissions,currently with working outside of the home and home health: hospice or ECF may be more appropriate. Previously in hospice (2013) but decided to d/c hospice as she got better. Palliative on board, appreciate recommendations (3) Interstitial lung disease Current Visit: Yes Status: Chronic Assessment and plan: continue supplemental O2 via nasal cannula (on 4L at home) continue duonebs, solumedrol (4) Diabetes Current Visit: Yes Status: Chronic Assessment and plan: stable continue sliding scale Qualifiers: Diabetes mellitus type: type 2 Diabetes mellitus complication status: with unspecified complications Diabetes mellitus assisted insulin use: without assisted use Qualified Code(s): E11.8 - Type 2 diabetes mellitus with unspecified complications (5) Hypertension Current Visit: Yes Status: Chronic Assessment and plan: stable continue home medications Qualifiers: Hypertension type: essential hypertension Qualified Code(s): I10 - Essential (primary) hypertension (6) History of DVT (deep vein thrombosis) Current Visit: Yes Status: Chronic Assessment and plan: hx of DVT not on anticoagulation at home due to previous hx of bleeding. (7) DVT prophylaxis Current Visit: Yes Status: Acute Assessment and plan: heparin SQ - Subjective Interval history: Patient is pleasant. States she is tired, she was arguing with her last night. - Constitutional Vitals: Temp Pulse Resp BP Pulse Ox 97.6 F 79 16 147/93 98 04/16/17 07:26 04/16/17 07:26 04/16/17 07:26 04/16/17 07:26 04/16/17 07:26 General appearance: Present: cooperative, pleasant, answers questions appropriately - Head Head exam: Present: atraumatic, normocephalic - Eye Eye exam: Present: PERRL, conjuntiva pink, sclera anicteric Pupils: Present: PERRL - Neck Neck exam general surgery: Present: supple, trachea midline. Absent: lymphadenopathy - Respiratory Respiratory exam: Present: decreased breath sounds, rales. Absent: respiratory distress, rhonchi, stridor, wheezes - Cardiovascular Cardiovascular exam: Present: RRR, +S1, +S2. Absent: diastolic murmur, systolic murmur - GI/Abdominal GI/Abdominal exam: Present: normal bowel sounds, soft, no peritoneal signs. Absent: distended, tenderness - Extremities Exam Extremities exam: Present: normal capillary refill, pedal edema (trace to 1+), warm. Absent: tenderness - Neurological Exam Neurological exam: Present: alert (somewhat confused). Absent: facial droop, speech deficit - Skin Skin exam: Present: dry, intact, warm Internal Medicine: Result - Labs CBC & Chem 7: 04/15/17 04:10 04/16/17 04:20 Labs: BMP 04/16/17 04:20 Sodium 136 Potassium 4.3 Chloride 99 Carbon Dioxide 26 BUN 36 H Creatinine 1.50 H Glucose 234 H Calcium 9.9 Cardiac Enzymes 04/15/17 Range/Units 09:49 Troponin I 0.04 H* (0-0.03) ng/mL - ABG Interpretation ABG results: ABG ABG pH 7.45 pH Units (7.32-7.45) 04/14/17 23:14 ABG pCO2 45 mmHg (35-45) 04/14/17 23:14 ABG pO2 59 mmHg (85-104) L 04/14/17 23:14 ABG O2 Saturation 91 % (95-98) L 04/14/17 23:14 PT/INR, D-dimer PT 12.1 Seconds (9.4-12.1) 04/14/17 14:54 <Vincnezo López - Last Filed: 04/16/17 16:50> Date of Encounter: 04/16/17 - Assessment and plan (1) Acute and chronic respiratory failure Current Visit: Yes Status: Acute Qualifiers: Respiratory failure complication: hypoxia Qualified Code(s): J96.21 - Acute and chronic respiratory failure with hypoxia (2) Acute CHF Current Visit: Yes Status: Acute Qualifiers: Congestive heart failure type: combined Qualified Code(s): I50.41 - Acute combined systolic (congestive) and diastolic (congestive) heart failure (3) Acute exacerbation of chronic obstructive airways disease Current Visit: Yes Status: Acute (4) Hypertension Current Visit: Yes Status: Chronic Qualifiers: Hypertension type: essential hypertension Qualified Code(s): I10 - Essential (primary) hypertension (5) Interstitial lung disease Current Visit: Yes Status: Chronic (6) CKD (chronic kidney disease) stage 3, GFR 30-59 ml/min Current Visit: No Status: Chronic (7) ALLYSON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 Current Visit: No Status: Chronic (8) Diabetes Current Visit: Yes Status: Chronic Qualifiers: Diabetes mellitus type: type 2 Diabetes mellitus complication status: with hyperglycemia Diabetes mellitus assisted insulin use: without intermediate card tender use Qualified Code(s): E11.65 - Type 2 diabetes mellitus with hyperglycemia - Constitutional Vitals: Temp Pulse Resp BP Pulse Ox 97.9 F 86 16 135/85 94 04/16/17 15:20 04/16/17 15:20 04/16/17 15:57 04/16/17 15:20 04/16/17 15:57 Internal Medicine: Result - Labs CBC & Chem 7: 04/15/17 04:10 04/16/17 04:20 Labs: BMP 04/16/17 04:20 Sodium 136 Potassium 4.3 Chloride 99 Carbon Dioxide 26 BUN 36 H Creatinine 1.50 H Glucose 234 H Calcium 9.9 - ABG Interpretation ABG results: ABG ABG pH 7.45 pH Units (7.32-7.45) 04/14/17 23:14 ABG pCO2 45 mmHg (35-45) 04/14/17 23:14 ABG pO2 59 mmHg (85-104) L 04/14/17 23:14 ABG O2 Saturation 91 % (95-98) L 04/14/17 23:14 PT/INR, D-dimer PT 12.1 Seconds (9.4-12.1) 04/14/17 14:54 - Attending Attestation I examined this patient and my medical decision-making was reviewed with the Resident Physician on 04/16/17. I agree with the documented findings, disposition and treatment plan as described except to the extent set forth below. Ms. Griffin is currently admitted for acute exac CHF. She remains moderate to high risk due to potential for worsening cardiac issues. Ms. Griffin feels OK. She was quite agitated last night. Her says need to make sure she is on her meds. No fever or chills. Working on d/c planning. Exam Alert. Comfortable Mucus membranes dry Heart not tachy Lungs clear at this time. Abd soft I/P 1. Acute exac CHF 2. Anxiety Further diagnoses and plan as above.
[2017-04-16] MEDS: Insulin LISPRO 300 UNITS/3 ML VIAL SQ SCH ×4 (08:15→22:02)
[2017-04-16] MEDS: Isosorbide MONOnitrate (24 HR) 30 MG TAB.ER.24H PO SCH (08:16)
[2017-04-16] MEDS: Lisinopril 20 MG TABLET PO SCH (08:16)
[2017-04-16] MEDS: Magnesium Oxide 400 MG TABLET PO SCH (08:17)
[2017-04-16] MEDS: Folic Acid 1 MG TABLET PO SCH (08:17)
[2017-04-16] MEDS: Furosemide 40 MG/4 ML VIAL IVP SCH ×2 (08:18→17:53)
--- NOTE | 2017-04-16 10:28 | Palliative Progress Note ---
Date of Encounter: 04/16/17 Time of Encounter: 10:20 - Assessment and plan (1) Dyspnea and respiratory abnormalities Current Visit: No Status: Acute Assessment and plan: Improved, less crackles. Utilizing bipap at night and currently on oxygen at 4LPM (2) Constipation Current Visit: No Status: Acute Assessment and plan: BM yesterday. Continues with miralax daily and monitor Qualifiers: Constipation type: unspecified constipation type Qualified Code(s): K59.00 - Constipation, unspecified (3) Counseling regarding advanced care planning and goals of care Current Visit: Yes Status: Acute Assessment and plan: Patient remains slightly confused this am. Long discussion with Kade, fast foods worker Kalyan Velazco and I via phone conference, as he is working and will not be at hospital until later this evening. Discussed how pt has been doing at home, goals of care, discharge planning and future needs. Kade provided information re: patient most likely not taking medications as prescribed, States "I wrote the names of medicines on the top of her pill bottles 6-8 months ago". I asked if she takes her Lasix regularly, and he states "I don't think so, she gets mad it keeps her up and night and makes her pee". He also states that she follows monthly with psych here at [place], and if "she gets off any of her anxiety medication, she gets crazy". He stated that every time she comes to hospital, her medications do not get continued, and "she is a mess when she gets home". He stated she has been in rehab at [facility] couple [facility] times, but hated it the last time and only stayed for a week. Kade states, "I can't take care of her, I'm not medical and I'm not a caregiver". He does not think she would do well in hospice because "anytime anything happens, if she gets anxious or short of breath, she calls 911 or the police". D/W Dr. López, and Dr. Harvey regarding the above. They will be doing review of patient's medications and making adjustments. Discussed that we could reach out to home health and see if they can oversee her medication administration at home. SW also reaching out to see if any case management for CHF available for this patient. Will continue to follow. - Time Spent With Patient Total time spent is greater than 50% in coordination of care (as documented) at patient's floor/unit and/or counseling patient: 25 - 35 minutes - Subjective Interval history: Patient with increased confusion last night. Called multiple times, security. Had sitter for the rest of night. This am, pt is pleasant, states she had bad night and argued with all night. States he was "belligerent " with her, and "she hopes he doesn't speak like that to us". Denies pain or discomfort, denies nausea. Good appetite. States breathing better. - Constitutional Vitals: Abnormal lab results RDW 16.7 % (11.5-14.5) H 04/15/17 04:10 Plt Count 134 K/mcL (140-400) L 04/15/17 04:10 ABG pO2 59 mmHg (85-104) L 04/14/17 23:14 ABG HCO3 31 mEq/L (21-27) H 04/14/17 23:14 ABG Total CO2 33 mEq/L (20-26) H 04/14/17 23:14 ABG O2 Saturation 91 % (95-98) L 04/14/17 23:14 ABG Base Excess 6.4 mEq/L (-2.0 to 3.0) H 04/14/17 23:14 BUN 36 mg/dL (7-20) H 04/16/17 04:20 Creatinine 1.50 mg/dL (0.57-1.11) H 04/16/17 04:20 Est GFR ( Amer) 41 (> 60) L 04/16/17 04:20 Est GFR (Non-Af Amer) 33 (> 60) L 04/16/17 04:20 Glucose 234 mg/dL (70-99) H 04/16/17 04:20 POC Glucose 264 (58-89) H 04/15/17 19:06 Hemoglobin A1c 7.5 % (-5.6) H 04/14/17 20:47 Creatine Kinase 23 Units/L (29-168) L 04/14/17 14:54 Troponin I 0.04 ng/mL (0-0.03) H* 04/15/17 09:49 B-Natriuretic Peptide 3913 pg/mL (0-100) H 04/14/17 14:54 LDL Cholesterol, Calc 109 mg/dL (0-99) H 04/15/17 04:10 HDL Cholesterol 30 mg/dL (40-59) L 04/15/17 04:10 Cholesterol/HDL Ratio 5.2 (0-4.9) H 04/15/17 04:10 Urine Protein 30 mg/dL (Neg-Trace) H 04/14/17 15:49 Ur Squamous Epith Cells Many per lpf (None-Few) H 04/14/17 15:49 General appearance: Present: no acute distress - Respiratory Additional comments: Few crackles noted to left base - Cardiovascular Cardiovascular exam: Present: +S1, +S2, systolic murmur - GI/Abdominal GI/Abdominal exam: Present: normal bowel sounds, soft - Extremities Exam Extremities exam: Present: normal capillary refill, normal inspection - Neurological Exam Neurological exam: Present: alert, strengths equal and symetr throughout Additional comments: Oriented to name and place now, but disoriented to time and situation. Follows commands. - Skin Skin exam: Present: dry, warm Palliative Quality Palliative Quality: Screen for Code Status: Yes, Screen for Goals of Care: Yes, Screen for Pain: Yes, If Pain Regimen Started, Initiate Bowel Regimen: Yes, Screen for Nausea/Vomitting: Yes Code Status: 04/14/17 21:34 CODE [Resuscitation Status: Active] [RES] Routine Comment: Resuscitation Status: [id number] - Labs CBC & Chem 7: 04/15/17 04:10 04/16/17 04:20 Labs: Laboratory Results - last 24 hr 04/14/17 04/15/17 04/15/17 20:49 07:59 09:49 Sodium Potassium Chloride Carbon Dioxide BUN Creatinine Est GFR ( Amer) Est GFR (Non-Af Amer) BUN/Creatinine Ratio Glucose POC Glucose 253 H 236 H Calculated Osmolality Calcium Troponin I 0.04 H* 04/15/17 04/15/17 04/15/17 11:39 16:13 19:06 Sodium Potassium Chloride Carbon Dioxide BUN Creatinine Est GFR ( Amer) Est GFR (Non-Af Amer) BUN/Creatinine Ratio Glucose POC Glucose 282 H 192 H 264 H Calculated Osmolality Calcium Troponin I 04/16/17 04:20 Sodium 136 Potassium 4.3 Chloride 99 Carbon Dioxide 26 BUN 36 H Creatinine 1.50 H Est GFR ( Amer) 41 L Est GFR (Non-Af Amer) 33 L BUN/Creatinine Ratio 24 Glucose 234 H POC Glucose Calculated Osmolality 298 Calcium 9.9 Troponin I - ABG Interpretation ABG results: ABG ABG pH 7.45 pH Units (7.32-7.45) 04/14/17 23:14 ABG pCO2 45 mmHg (35-45) 04/14/17 23:14 ABG pO2 59 mmHg (85-104) L 04/14/17 23:14 ABG O2 Saturation 91 % (95-98) L 04/14/17 23:14 PT/INR, D-dimer PT 12.1 Seconds (9.4-12.1) 04/14/17 14:54 Consult Discharge Plan - Plan Referrals: Pat[facility],Wilmar Choudhury MD [Non-Partnered Physician] - 04/23/17 10:30 am
[2017-04-16] MEDS: clonazePAM 0.5 MG TABLET PO PRN ×2 (13:47→22:00)
--- NOTE | 2017-04-16 16:53 | Event Note ---
Date of Encounter: 04/16/17 Time of Encounter: 16:51 Pt stood and fell to the floor. Hit head on door frame. No LOC. Exam Alert. Oriented No laceration noted. No neck/C spine pain. Plan Check CT of head Pt on subqu heparin.
[2017-04-16] MEDS: Acetaminophen 325 MG TABLET PO PRN (17:48)
[2017-04-16] MEDS: Mirtazapine 15 MG TABLET PO SCH (22:00)
[2017-04-17] MEDS: Acetaminophen 325 MG TABLET PO PRN ×2 (00:12→09:54)
[2017-04-17] MEDS: *HR* Heparin 5,000 UNIT/ML VIAL SQ SCH ×2 (00:13→09:16)
[2017-04-17] MEDS: Ipratropium/Albuterol Neb 3 ML IH SCH ×4 (03:24→15:35)
[2017-04-17] MEDS ORDERED: predniSONE 20 MG TABLET PO SCH (09:00)
[2017-04-17] MEDS: Furosemide 40 MG/4 ML VIAL IVP SCH (09:16)
[2017-04-17] MEDS: Magnesium Oxide 400 MG TABLET PO SCH (09:17)
[2017-04-17] MEDS: Lisinopril 20 MG TABLET PO SCH (09:17)
[2017-04-17] MEDS: Folic Acid 1 MG TABLET PO SCH (09:17)
[2017-04-17] MEDS: Isosorbide MONOnitrate (24 HR) 30 MG TAB.ER.24H PO SCH (09:17)
[2017-04-17] MEDS: Insulin LISPRO 300 UNITS/3 ML VIAL SQ SCH ×2 (09:18→12:32)
--- NOTE | 2017-04-17 09:59 | Event Note ---
Date of Encounter: 04/17/17 Time of Encounter: 09:45 Patient with improved behavior last pm, appears this is better since Clonazepam restarted. Remains on IV Furosemide. Difficult situation, as patient noncompliant, and difficult for family to deal with at home at times. When pt discharged - home health referral needs to state for nursing to assist with medication setup and administration. This will hopefully help with compliance. She will continue with [facility]. Palliative will follow from distance.
--- NOTE | 2017-04-17 10:23 | Discharge Summary ---
<Marley Harvey - Last Filed: 04/17/17 10:36> Date of Encounter: 04/17/17 Time of Encounter: 10:24 - Discharge Diagnosis (1) Systolic CHF, acute Priority: Primary Status: Acute (2) Goals of care, counseling/discussion Priority: Primary Status: Chronic (3) Interstitial lung disease Priority: Secondary Status: Chronic (4) Diabetes Priority: Secondary Status: Chronic Qualifiers: Diabetes mellitus type: type 2 Diabetes mellitus complication status: with hyperglycemia Diabetes mellitus ferry terminal agent insulin use: without ferry terminal agent use Qualified Code(s): E11.65 - Type 2 diabetes mellitus with hyperglycemia (5) Hypertension Priority: Secondary Status: Chronic Qualifiers: Hypertension type: essential hypertension Qualified Code(s): I10 - Essential (primary) hypertension (6) History of DVT (deep vein thrombosis) Priority: Secondary Status: Chronic (7) DVT prophylaxis Priority: Secondary Status: Acute - Discharge Medications Home Medications: Carvedilol 12.5 mg PO BID #0 03/25/15 [History] Furosemide [Lasix] 60 mg PO DAILY #0 03/25/15 [History] Glimepiride [Amaryl] 2 mg PO BID #0 03/25/15 [History] Nitroglycerin [Nitrostat] 0.4 mg SL Q5M PRN #0 03/25/15 [History] Omeprazole [PriLOSEC] 20 mg PO QAM #0 03/25/15 [History] Mirtazapine 30 mg PO HS 02/19/16 [History] Oxygen 4 l NS AD 02/19/16 [History] Potassium Chloride [Klor-Con Sprinkle] 10 meq PO HS 02/19/16 [History] Cyclobenzaprine HCl 5 mg PO HS 08/26/16 [History] Escitalopram [Lexapro] 10 mg PO QAM 08/26/16 [History] Folic Acid [FA-8] 0.8 mg PO DAILY 08/26/16 [History] Lisinopril [Zestril] 20 mg PO DAILY 08/26/16 [History] clonazePAM [Klonopin] 0.5 mg PO TID PRN 08/26/16 [History] Gabapentin [Neurontin] 100 mg PO TID #60 capsule 08/28/16 [Rx] Escitalopram Oxalate 5 mg PO QPM 01/17/17 [History] Magnesium Oxide [Magnesium] 500 mg PO DAILY 01/17/17 [History] Isosorbide MONOnitrate (24 HR) [Imdur] 30 mg PO DAILY #30 tab.er.24h 01/19/17 [ Rx] Docusate [Colace] 100 mg PO BID PRN 02/14/17 [Rx] Polyethylene Glycol 3350 [MiraLAX] 17 gm PO DAILY 03/26/17 [History] Ipratropium/Albuterol Neb [Duoneb] 3 ml IH Q6H PRN 04/14/17 [History] Sitagliptin Phosphate [Januvia] 50 mg PO DAILY 04/14/17 [History] Allergies/Adverse Reactions: 3 Allergy/AdvReac Type Severity Reaction Status Date / Time Amoxicillin Allergy Swelling Verified 01/17/17 17:21 of Lip/Tongue/Throat Sulfa (Sulfonamide Allergy Swelling Verified 01/17/17 17:21 Antibiotics) of Lip/Tongue/Throat acetaminophen [From Percocet] AdvReac Nausea Verified 01/17/17 17:21 citalopram [From Celexa] AdvReac Dizziness Verified 01/17/17 17:21 codeine AdvReac Nausea Verified 01/17/17 17:21 [From Tylenol-Codeine] epinephrine AdvReac Headache Verified 01/17/17 17:21 Oxycodone [From Percocet] AdvReac Nausea Verified 01/17/17 17:21 Penicillins [PCN] AdvReac Itching Verified 01/17/17 17:21 Procedures/tests Complete & Pending: Procedures Performed prior 72 hours Category Date Time Status CT head/brain wo con [CT] Stat Cat Scan 04/16/17 16:48 Completed ECG 12 lead ECG [ECG] AM 0600 Y 04/15/17 06:00 Ordered Date of admission: 04/14/17 17:24 Primary care physician: PCP NONE Consults: 04/14/17 20:08 Consult to Palliative Care [CONS] Routine Comment: Consulting Provider: Palliative Care Karmen Reason for Consult: end-stage chf, copd Call Completed: No Discharging clinician: Marley Harvey Anticipated date of discharge: 04/17/17 - Patient Status Disposition: Home Health Service Condition: Fair Functional capacity at discharge: uses cane/walker Overall status at discharge: patient is progressing back to baseline - Discharge Instructions Instructions: Heart Failure (DC), Chest Pain (DC), Sleep Apnea Syndrome (DC), Sleep Apnea Syndrome (GEN), Acute Respiratory Distress Syndrome (DC), Acute Respiratory Distress Syndrome (GEN), Diabetes Mellitus Type 2 in Adults (DC), Chronic Obstructive Pulmonary Disease (DC), Chronic Hypertension (DC), Fall Prevention (DC), Fall Prevention (GEN), Pneumonia (DC), Fall Prevention, Metrologist (GEN), Fall Prevention for the Older Adult, Metrologist (GEN ) Follow Up With: [facility] [place],Wilmar Choudhury MD [Non-Partnered Physician] - 04/23/17 10:30 am - Diet and Activity Activity: ambulate only with your walker Diet: other (1.5 L fluid restriction, cardiac) Interval History: Patient is alert and pleasant this morning. States she doesn't know how she is doing this morning because it is too early. Denies shortness of breath. Hospital course: Ms. Griffin is a 77 year old female admitted with acute worsening of shortness of breath due to CHF exacerbation. She was started on IV lasix and given BiPAP therapy. She was given a 1.5 L fluid restricted cardiac diet with strict I/Os and daily weights. Her home medications for her chronic medical conditions were continued. Her shortness of breath improved and she had some issues with possible sun-downing - becoming agitated at night, arguing with her and calling 911. Further inquiry of her showed that the patient is home alone while her works and medication compliance outpatient has been an issue. The patient is being discharged with home health with specific instructions to nursing to assist with medication administration. - Time Spent with Patient Total time spent providing and/or coordinating discharge services: - Constitutional Vitals: Temp Pulse Resp BP Pulse Ox 98.7 F 79 16 129/88 99 04/17/17 03:29 04/17/17 08:38 04/17/17 08:38 04/17/17 03:29 04/17/17 08:38 General appearance: Present: cooperative, pleasant, answers questions appropriately - Head Head exam: Present: atraumatic, normocephalic - Eye Eye exam: Present: PERRL, conjuntiva pink, sclera anicteric Pupils: Present: PERRL - Neck Neck exam general surgery: Present: supple, trachea midline - Respiratory Respiratory exam: Present: decreased breath sounds, rales. Absent: respiratory distress, rhonchi, stridor, wheezes - Cardiovascular Cardiovascular exam: Present: RRR, +S1, +S2. Absent: diastolic murmur, gallop, rubs, systolic murmur - GI/Abdominal GI/Abdominal exam: Present: normal bowel sounds, soft, no peritoneal signs. Absent: distended, tenderness - Extremities Exam Extremities exam: Present: normal capillary refill, pedal edema (1+), warm. Absent: tenderness - Neurological Exam Neurological exam: Present: alert, CN II-XII intact. Absent: facial droop, speech deficit - Skin Skin exam: Present: dry, intact, warm <Vincenzo López - Last Filed: 04/17/17 15:51> Date of Encounter: 04/17/17 - Discharge Diagnosis (1) Acute and chronic respiratory failure Priority: Primary Status: Acute Qualifiers: Respiratory failure complication: hypoxia Qualified Code(s): J96.21 - Acute and chronic respiratory failure with hypoxia (2) Acute CHF Priority: Primary Status: Acute Qualifiers: Congestive heart failure type: combined Qualified Code(s): I50.41 - Acute combined systolic (congestive) and diastolic (congestive) heart failure (3) Acute exacerbation of chronic obstructive airways disease Priority: Secondary Status: Acute (4) Hypertension Status: Chronic Qualifiers: Hypertension type: essential hypertension Qualified Code(s): I10 - Essential (primary) hypertension (5) Interstitial lung disease Status: Chronic (6) CKD (chronic kidney disease) stage 3, GFR 30-59 ml/min Priority: Secondary Status: Chronic (7) [place]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 Priority: Secondary Status: Chronic (8) Diabetes Status: Chronic Qualifiers: Diabetes mellitus type: type 2 Diabetes mellitus complication status: with hyperglycemia Diabetes mellitus ferry terminal agent insulin use: without ferry terminal agent use Qualified Code(s): E11.65 - Type 2 diabetes mellitus with hyperglycemia (9) Hypokalemia Priority: Secondary Status: Resolved Procedures/tests Complete & Pending: Procedures Performed prior 72 hours Category Date Time Status CT head/brain wo con [CT] Stat Cat Scan 04/16/17 16:48 Completed ECG 12 lead ECG [ECG] AM 0600 Y 04/15/17 06:00 Ordered Date of admission: 04/14/17 17:24 Primary care physician: PCP NONE Consults: 04/14/17 20:08 Consult to Palliative Care [CONS] Routine Comment: Consulting Provider: Palliative Care Karmen Reason for Consult: end-stage chf, copd Call Completed: No Hospital course: Ms. Griffin is a 77 year old female - Time Spent with Patient Total time spent providing and/or coordinating discharge services: 38min - Constitutional Vitals: Temp Pulse Resp BP Pulse Ox 98.7 F 77 16 127/80 100 04/17/17 03:29 04/17/17 11:07 04/17/17 11:07 04/17/17 11:07 04/17/17 11:07 - Attending Attestation I examined this patient and my medical decision-making was reviewed with the Resident Physician on 04/17/17. I agree with the documented findings, disposition and treatment plan as described except to the extent set forth below. Ms. Griffin has been admitted for acute exac CHF. She has improved with diuresis. She is afebrile with stable vitals. She will be going home today. Exam Alert Comfortable Heart not tachy Lungs with scant wheeze Plan D/C home today Follow up with PCP.
--- NOTE | 2017-04-17 10:24 | Physician Discharge Referral ---
Home Health/Hosp Referral Info Transfer to: Home Health Attending Provider: Dr. Vincenzo López Provider in Charge Post Discharge: PCP - Diagnosis (1) Systolic CHF, acute Priority: Primary Status: Acute (2) Goals of care, counseling/discussion Priority: Primary Status: Chronic (3) Interstitial lung disease Priority: Secondary Status: Chronic (4) Diabetes Priority: Secondary Status: Chronic (5) Hypertension Priority: Secondary Status: Chronic (6) History of DVT (deep vein thrombosis) Priority: Secondary Status: Chronic (7) DVT prophylaxis Priority: Secondary Status: Acute - Respiratory Orders Oxygen / L per min (4) Smoking Cessation: Smoking cessation has been advised. For more information, call the [place] Tobacco Quit Line at 7-750-EJJO-NOW. - Diet/Nutrition Diet/Nutrition Orders: Cardiac (1.5 L fluid restriction) - Activity Activity Orders: Walker - Services Needed Following services are medically necessary services: Nursing, Home Health Aide, Physical Therapy Home Care Orders: nursing to assist with medication set-up and administration - Transfer Medications Home Medications: Carvedilol 12.5 mg PO BID #0 03/25/15 [History] Furosemide [Lasix] 60 mg PO DAILY #0 03/25/15 [History] Glimepiride [Amaryl] 2 mg PO BID #0 03/25/15 [History] Nitroglycerin [Nitrostat] 0.4 mg SL Q5M PRN #0 03/25/15 [History] Omeprazole [PriLOSEC] 20 mg PO QAM #0 03/25/15 [History] Mirtazapine 30 mg PO HS 02/19/16 [History] Oxygen 4 l NS AD 02/19/16 [History] Potassium Chloride [Klor-Con Sprinkle] 10 meq PO HS 02/19/16 [History] Cyclobenzaprine HCl 5 mg PO HS 08/26/16 [History] Escitalopram [Lexapro] 10 mg PO QAM 08/26/16 [History] Folic Acid [FA-8] 0.8 mg PO DAILY 08/26/16 [History] Lisinopril [Zestril] 20 mg PO DAILY 08/26/16 [History] clonazePAM [Klonopin] 0.5 mg PO TID PRN 08/26/16 [History] Gabapentin [Neurontin] 100 mg PO TID #60 capsule 08/28/16 [Rx] Escitalopram Oxalate 5 mg PO QPM 01/17/17 [History] Magnesium Oxide [Magnesium] 500 mg PO DAILY 01/17/17 [History] Isosorbide MONOnitrate (24 HR) [Imdur] 30 mg PO DAILY #30 tab.er.24h 01/19/17 [ Rx] Docusate [Colace] 100 mg PO BID PRN 02/14/17 [Rx] Polyethylene Glycol 3350 [MiraLAX] 17 gm PO DAILY 03/26/17 [History] Ipratropium/Albuterol Neb [Duoneb] 3 ml IH Q6H PRN 04/14/17 [History] Sitagliptin Phosphate [Januvia] 50 mg PO DAILY 04/14/17 [History] Allergies/Adverse Reactions: 3 Allergy/AdvReac Type Severity Reaction Status Date / Time Amoxicillin Allergy Swelling Verified 01/17/17 17:21 of Lip/Tongue/Throat Sulfa (Sulfonamide Allergy Swelling Verified 01/17/17 17:21 Antibiotics) of Lip/Tongue/Throat acetaminophen [From Percocet] AdvReac Nausea Verified 01/17/17 17:21 citalopram [From Celexa] AdvReac Dizziness Verified 01/17/17 17:21 codeine AdvReac Nausea Verified 01/17/17 17:21 [From Tylenol-Codeine] epinephrine AdvReac Headache Verified 01/17/17 17:21 Oxycodone [From Percocet] AdvReac Nausea Verified 01/17/17 17:21 Penicillins [PCN] AdvReac Itching Verified 01/17/17 17:21 Certification: Further, I certify that my clinical findings support that this patient is homebound (i.e. absences from home require considerable and taxing effort and are for medical reasons or rastafari services or infrequently or short duration when for other reasons) because: Homebound Reason: Patient requires assistance of a person or device to safely leave home, Leaving home requires considerable and taxing effort due to condition, Severity of cardiac or pulmonary status limits activity tolerance Attestation: My signature below is to certify that this patient is under my care and that I, or nurse practitioner, or a physician's assistant basketball coach working with me, has a face-to -face encounter with this patient.
[2017-04-17 11:09] VITALS: BP 127/80
[2017-04-17] MEDS ORDERED: FLUARIX QUAD 2017-18 36MOS UP/PF 0.5 ML SYRINGE IM ONE (12:18)
[2017-04-17] MEDS: clonazePAM 0.5 MG TABLET PO PRN (15:16)
== END 2017-04-17 15:45 | disposition home health service (06) | DRG 291 ==
LOC: EMEROO 14:47 → 2NENU 17:24
PROVIDERS: ADMIT Nurse Practitioner Acute Care; ATTEND Internal Medicine